=== PATIENT | female | born 1955 | race Caucasian/White ===

== ENCOUNTER 2017-10-07 16:20 | Inpatient (IN) | payer MEDICARE, MEDICAID ==
[~2017-10-07 16:20] MED LIST: Iopamidol 370 76% 100 ML VIAL ONE
[2017-10-07] MEDS ORDERED: Morphine 5 MG/ML SYRINGE ONE ×3 (17:11→19:01)
[2017-10-07] MEDS ORDERED: Piperacillin/Tazobactam 3.375 GM VIAL ONE (17:13)
[2017-10-07] MEDS ORDERED: Sodium Chloride 0.9% 100 ML ONE (17:13)
[2017-10-07] MEDS ORDERED: Ondansetron HCl/PF 4 MG/2 ML Vial ONE (17:19)
[2017-10-07 17:32] LABS: #Basophils 0.1 thou/uL (0.0-0.2); #Lymphocytes 1.3 thou/uL (1.20-3.40); #Monocytes 1.2 thou/uL (0.11-0.59); #Neutrophils 9.3 thou/uL (1.40-6.50); %Eosinophils 0.1 % (0.0-10.0); %Lymphocytes 10.6 % (21.0-51.0); %Monocytes 10.3 % (0.0-10.0); %Neutrophils 77.9 % (42.0-75.0); Hemoglobin 13.5 g/dL (12.0-16.0); Mean Corpuscular Hemoglobin 28.2 pg (27.0-31.0); Mean Corpuscular Volume 85.4 fL (78.0-98.0); Mean Platelet Volume 6.1 fL (7.4-10.4); Platelet Count 663 thou/uL (130-400); RBC Distribution Width 13.4 % (11.5-14.5); White Blood Cell (WBC) Count 11.9 thou/uL (4.8-10.8)
[2017-10-07 17:41] LABS: PTT 33.1 SEC (22.9-36.1); Prothrombin Time 13.7 SEC (12.0-14.7)
[2017-10-07 17:46] LABS: ALT (SGPT) 19 U/L (8-55); AST (SGOT) 29 U/L (5-34); Alkaline Phosphatase 99 U/L (40-150); Anion Gap 18 mmol/L (10-20); BUN (Urea Nitrogen) 10 mg/dL (9.8-20.1); Bilirubin, Total 0.7 mg/dL (0.2-1.2); CK (CPK) 74 U/L (29-168); Calc. Creatinine Clearance 0 mL/min (70-130); Calcium 9.5 mg/dL (7.8-10.44); Carbon Dioxide 27 mmol/L (22-29); Chloride 89 mmol/L (98-107); Estimated GFR-MDRD 76; Globulin 4.1 g/dL (2.4-3.5); Glucose 93 mg/dL (70-105); Lipase 23 U/L (8-78); Potassium 4.3 mmol/L (3.5-5.1); Protein, Total 7.1 g/dL (6.0-8.3); Sodium 130 mmol/L (136-145)
[2017-10-07 17:47] LABS: CKMB 0.3 ng/mL (0-6.6); Troponin I Less than 0.010 ng/mL (< 0.028)
[2017-10-07 18:53] LABS: HBCM Index 0.18 S/CO (0-0.79); HBSAg Index 0.87 S/CO (0-0.99); Hep A IgM AB Non-Reactive (NonReactive); Hep A IgM S/CO 0.09 S/CO (0-0.79); Hep B Surf Ag Non-Reactive S/CO (NonReactive); Hep C IgG Ab Non-Reactive (NonReactive); Hep C Index 0.08 S/CO (0-0.79); Hepatitis B Core IGM Abs Non-Reactive (NonReactive)
--- NOTE | 2017-10-07 19:00 | CT ---
CT ABDOMEN AND PELVIS: 10/07/2017 HISTORY: Weakness. Stomach pain. Dehydration. Distention. COMPARISON: None. TECHNIQUE: Serial axial CT imaging is obtained at 5 mm intervals, from the lung bases through the pubic symphysi s, with IV contrast. Coronal reformatted imaging obtained. FINDINGS: There is an incompletely imaged pleural-based soft tissue nodule on the right, medially, on image 2, measuring 8 mm. There is a nodule within the left lower lobe, measuring 6 mm, on image 14, and a rig ht lower lobe nodule is partially imaged on image 1, measuring 1.1 cm. No free intraperitoneal air is noted. There is a moderate amount of ascites seen throughout the abdomen/pelvis. There is a soft tissue mas s within the mediastinal fat, anterior to the heart, on image 5, measuring 3.5 x 1.4 cm. A small, in completely imaged pericardial effusion is noted. There is a soft tissue mass in the right pericardia c region on image 107, measuring 2.5 cm. There is extensive nodular, mass-like soft tissue thickenin g of the omentum, with extensive enhancement of the peritoneal lining. There is marked omental thick ening throughout the abdomen/pelvis. There are ill defined extensive soft tissue masses along the pe ritoneal lining throughout the abdomen/pelvis, with prominent mass-like thickening of the right upper and left upper quadrant. There is nodularity of the peritoneal lining with masses seen along the co urse of the right pericolic gutter. There is no discrete mass within the liver parenchyma. The gallbladder, spleen, pancreas, adrenal gl ands, and kidneys demonstrate no acute findings. There is no evidence for bowel obstruction. There is diverticulosis of the sigmoid colon with no evidence for diverticulitis. The appendix appears bharat ssly unremarkable. There is atherosclerotic calcification of the abdominal aorta and its branches. No retroperitoneal l ymphadenopathy is noted. Review of the osseous structures demonstrates lower lumbar spine facet hype rtrophic change and degenerative change of the bilateral sacroiliac joints, with no discrete lytic or blastic bone lesion. IMPRESSION: Markedly abnormal appearance of the peritoneal lining with mass-like soft tissue thickening throughou t the abdomen/pelvis, especially in the upper abdomen, with associated ascites. Findings are highly concerning for peritoneal carcinomatosis. There are pulmonary nodules, incompletely imaged, within t he lung bases, suspicious for metastatic disease. Follow-up complete CT examination of the chest adv ised. There are masses in the pericardial region, and there is a small pericardial effusion. The results were called to Dr. Casarez at 6:22 p.m. on 10/07/2017. CODE CR POS: JWAriana
[2017-10-07] MEDS ORDERED: Ondansetron ODT 4 MG TAB SL PRN (21:24)
[2017-10-07] MEDS ORDERED: HYDROcodone/Acetaminophen 5/325 mg Tablet PO PRN ×2 (21:24)
[2017-10-07] MEDS ORDERED: Acetaminophen 325 MG TAB PO PRN (21:24)
[2017-10-07 22:07] VITALS: BMI 26.2
[2017-10-08] MEDS: Ondansetron HCl/PF 4 MG/2 ML Vial IVP PRN ×2 (00:58→06:04)
[2017-10-08] MEDS ORDERED: Milk Of Magnesia 30 ML UDCUP PO PRN (08:16)
[2017-10-08] MEDS ORDERED: Eucerin (Mineral Oil/Petrolatum,White) 30 gm Jar TOP PRN (08:16)
[2017-10-08] MEDS ORDERED: Loratadine 10 MG TAB PO PRN (08:16)
[2017-10-08] MEDS ORDERED: Artificial Tears 18 DROP/0.9 ML EA EYE PRN (08:16)
[2017-10-08] MEDS ORDERED: Bisacodyl 10 MG SUPP PR PRN (08:16)
[2017-10-08] MEDS ORDERED: Diabetic Tussin 200 MG/10 ML UDCUP PO PRN (08:16)
[2017-10-08] MEDS ORDERED: Chloraseptic Spray 180 ml Bottle PO PRN (08:16)
[2017-10-08] MEDS ORDERED: Sodium Chloride 0.65% Nasal 44 ML BOT EA NARE PRN (08:16)
[2017-10-08] MEDS ORDERED: Ondansetron HCl/PF 4 MG/2 ML Vial IVP PRN (08:16)
[2017-10-08] MEDS ORDERED: Loperamide HCl 2 MG CAP PO PRN (08:16)
[2017-10-08] MEDS ORDERED: Senokot 8.6 MG TAB PO PRN (08:16)
[2017-10-08] MEDS ORDERED: hydrALAZINE 20 MG/ML VIAL SLOW IVP PRN (08:16)
[2017-10-08] MEDS ORDERED: Promethazine HCl 25 MG/ML VIAL IM/IV PRN (08:18)
[2017-10-08] MEDS ORDERED: Enoxaparin Sodium 40 MG/0.4 ML SYRINGE SC SCH (09:00)
[2017-10-08] MEDS: Ondansetron ODT 4 MG TAB PO PRN (09:06)
[2017-10-08] MEDS ORDERED: Lidocaine 1% PF 5 ML VIAL ONE (09:42)
[2017-10-08] MEDS: Carvedilol 6.25 MG TAB PO SCH ×2 (10:29→20:31)
[2017-10-08] MEDS: Folic Acid 1 MG TAB PO SCH (10:30)
[2017-10-08] MEDS: Lisinopril 10 MG TAB PO SCH (10:30)
[2017-10-08 10:35] LABS: Fluid, Protein 3.3 g/dL (Not Available)
[2017-10-08 11:28] LABS: BF Color Yellow; Body Fluid Source PERITONEAL FLUID; Clarity Hazy (Clear); RBC Background Count 0.004; Tube # EDTA
[2017-10-08 11:39] LABS: WBC/NonHematic-Auto 1120 /cumm
[2017-10-08 11:45] LABS: BF RBC Count - Manual 3425 /cumm
--- NOTE | 2017-10-08 12:25 | HP ---
PRIMARY CARE PHYSICIAN: City call admission. REASON FOR ADMISSION: Abdominal pain. HISTORY OF PRESENT ILLNESS: A 62-year-old female who presented to [facility] Emergency Room with complaint of abdominal pain. Patient's abdominal pain was diffuse. She was having nausea and vomiting. She was not able to tolerate p.o. well. She denies any weight loss. She denies any fever or chills. She denies any UTI symptoms. With these symptoms, she presented to emergency room and patient was diagnosed with peritoneal carcinomatosis. The patient was given diagnosis of cancer. After that, patient got upset and she was in the denial mood. This morning when I tried to take a history from her, she was not able to tell me anything and she was crying and she was emotionally disturbed. Patient denies any constipation. She denies any melena. She denies any diarrhea. She is a smoker , but she quit smoking 3 months ago. She does have cough intermittently. The patient reports that for last 5 years, she is suffering from lot of things and she does not want to share with me. Unfortunately, when I was trying to get detailed history from her, at that time, patient was emotionally disturbed from prior information from the emergency room and she was not able to provide any more history. PAST MEDICAL HISTORY: Hypertension. PAST SURGICAL HISTORY: Hysterectomy and tonsillectomy. PAST PSYCHIATRIC HISTORY: Anxiety and depression. SOCIAL HISTORY: Patient is a former drug abuser, but patient lately clean and she denies any ongoing drug abuse history. The patient denies any alcohol abuse , but she is a smoker and quit smoking 3 months ago. FAMILY HISTORY: No strong family history of premature coronary artery disease, stroke or cancer. ALLERGIES: No known drug allergy. CURRENT HOME MEDICATIONS: Coreg 12.5 mg twice daily, lisinopril 10 mg p.o. daily, Protonix 20 mg p.o. daily and folic acid 1 mg p.o. daily. EMERGENCY ROOM COURSE: The patient is given morphine 4 mg, Zosyn 3.375 gram, Zofran 8 mg. REVIEW OF SYSTEMS: The following complete review of systems was negative, unless otherwise mentioned in the HPI or below: Constitutional: Weight loss or gain, ability to conduct usual activities. Skin: Rash, itching. Eyes: Double vision, pain. ENT/Mouth: Nose bleeding, neck stiffness, pain, tenderness. Cardiovascular: Palpitations, dyspnea on exertion, orthopnea. Respiratory: Shortness of breath, wheezing, cough, hemoptysis, fever or night sweats. Gastrointestinal: Poor appetite, abdominal pain, heartburn, nausea, vomiting, constipation, or diarrhea. Genitourinary: Urgency, frequency, dysuria, nocturia. Musculoskeletal: Pain, swelling. Neurologic/Psychiatric: Anxiety, depression. Allergy/Immunologic: Skin rash, bleeding tendency. Please see my HPI for pertinent positive and negative. All other review of system reviewed and negative except as mentioned in the HPI. PHYSICAL EXAMINATION: VITAL SIGNS: On arrival, blood pressure 124/105, pulse 112, respiratory rate 20 , temperature 97.8, saturation 95% on room air, weight 64.4 kilograms. GENERAL: Patient is currently alert, awake, no obvious acute distress. HEAD: Normocephalic, atraumatic. EYES: Pupils round, reactive to light. Extraocular muscle intact. ENT: Oropharynx within normal limits. Moist mucous membranes. No oral lesion , no pharyngeal erythema, no exudate. NECK: Supple, no JVD, no thyromegaly, no carotid bruit, no jugular venous distention. LUNGS: Clear to auscultation without any rhonchi or rales. CARDIAC: S1, S2 regular, tachycardia, no murmur, no gallop, no rub. ABDOMEN: Diffuse tenderness noted, periumbilical hernia noted. No peritoneal sign, no guarding, no rigidity, no rebound. BACK: Examination unremarkable, no CVA tenderness. EXTREMITIES: Upper extremity passive movement of all joints are normal. Lower extremities; no edema. Good peripheral pulsation. SKIN: No skin rash. HEMATOLOGICAL SYSTEM: No lymphadenopathy. PSYCHIATRIC: Anxious affect. NEUROLOGIC: Nonfocal examination. IMAGING DATA AND SIGNIFICANT LABORATORY DATA: EKG showing sinus tachycardia, nonspecific ST-T changes. CT of the abdomen and pelvis done in the emergency room which showed pleural based soft tissue nodule in right as well as in left side, moderate amount of ascites, soft tissue mass within the mediastinal fat anterior to the heart, pericardial effusion, peritoneal carcinomatosis, atherosclerosis of the aorta, degenerative changes in the sacroiliac joint and lumbar spine. CBC: WBC 11.9, hemoglobin 13.5, platelets 663, INR 1.0. BMP: Sodium 130, potassium 4.3, chloride 89, carbon dioxide 27, anion gap 18, BUN 10 , creatinine 0.77, glucose 93, calcium 9.5. Lactic acid 1.2. LFT: AST 29, ALT 19, alkaline phosphatase is 99, albumin 3.0, lipase 23. CA-125 540, BNP 103. Cardiac enzymes negative. CK 74. Ammonia 18. Hepatitis profile negative. ASSESSMENT AND PLAN/IMPRESSION: 1. Abdominal pain likely due to peritoneal carcinomatosis. 2. Ascites, likely malignant. 3. Multiple pulmonary nodules. 4. Soft tissue mass within mediastinal fat/anterior to the heart. 5. Pericardial effusion. 6. Hyponatremia. 7. Hypochloremia. 8. History of hypertension. 9. Nausea, vomiting, and dehydration. 10. Deep venous thrombosis prophylaxis, Lovenox 40 mg subcu daily. 11. Gastrointestinal prophylaxis, Protonix 40 mg IV daily. 12. Code status: The patient is FULL CODE. At this point, the patient does not have any surrogate decision maker. PLAN: Full admission to medical floor. Oncology will be consulted. Diagnostic paracentesis will be done and we will send fluid chemistry, culture and cytology. We will continue IV fluid with NS at 100 mL per hour. We will resume her home medication including Coreg, lisinopril. We will give her Protonix 40 mg IV daily, Zofran and Phenergan on a p.r.n. basis for nausea and vomiting. Her pain will be controlled with morphine. We will use Ativan on p.r.n. basis for her anxiety. We will monitor clinical response. We will also obtain echocardiography to assess pericardial effusion. Patient will need CT chest with contrast for further evaluation because contrast given earlier today that is why we will try to do it tomorrow morning for her in detail. Disposition plan based on clinical course. We are expecting patient's stay in hospital more than 2 midnights. Plan of care discussed with the patient in detail. MTDD
[2017-10-08] MEDS: Pantoprazole 40 MG VIAL IVP SCH (12:28)
[2017-10-08] MEDS: Sodium Chloride 0.9% 1,000 ML IV SCH ×2 (12:28→20:32)
[2017-10-08 12:31] LABS: BF Segmented Neutrophils 8 %; Cell Count Non Hematic 25 %; Lymphocytes 66 %
--- NOTE | 2017-10-08 12:33 | ULT ---
ULTRASOUND GUIDED PARACENTESIS: Date: 10/08/17 HISTORY: CT examination dated 10/07/17 demonstrated findings concerning for peritoneal carcinomatosis. Diagnos tic paracentesis was required. FINDINGS: Informed consent was obtained prior to the procedure. The left abdomen was prepped and draped in the normal sterile fashion and anesthetized with 1% buffer ed lidocaine. Preprocedural imaging demonstrated ascites throughout the abdomen/pelvis of relatively small to moder ate volume. In addition, there is lobulated soft tissue echogenicity lining the peritoneal cavity in multiple locations, most prominent in the left lower quadrant, again concerning for peritoneal carcin omatosis. Skin overlying the left lower quadrant was prepped and draped in the normal sterile fashion and anest hetized with 1% buffered lidocaine. With direct sonographic guidance, a 5 [employer] catheter was advanced into the ascites and removal of the stylette yields cloudy, kory-colored fluid, with particulate matter within the fluid. 2 liter s were removed. The ascites was sent to the laboratory for assessment per the request of the ordering physician. The patient tolerated the procedure well. IMPRESSION: Successful ultrasound guided paracentesis, yielding 2 liters of kory-colored fluid with internal par ticulate matter. POS: ALTON
[2017-10-08] MEDS ORDERED: ISOVUE-370 76%-LOCM 1 ML ONE (13:11)
--- NOTE | 2017-10-08 17:43 | CT ---
CT THORAX WITH CONTRAST: DATE: 10/08/17 TIME: 4:49 p.m. HISTORY: 62-year-old female with pulmonary nodules. Demonstration of peritoneal carcinomatosis on CT abdomen a nd pelvis of 10/07/17. Dr. Riojas reported the bilateral pulmonary thromboembolism by telephone to nurse Bran Rutherford at 5: 13 p.m. on 10/08/17. He was instructed to notify nurse practitioner Rayne Shea as soon as possible. COMPARISON: No prior chest CTs or plain chest radiographs. TECHNIQUE: IV iodinated contrast media: 100 mL Isovue 370. FINDINGS: In the superior segment of the right lower lobe, there is a cluster of multiple noncalcified pulmonar y masses and nodules with irregular margins, but without spiculations. In aggregate, this tight clust er measures approximately 3.5 x 3.5 x 2.5 cm (measurements are necessarily imprecise because of the v matthew irregular shapes). Of this cluster, one of the larger subunits localized inferiorly and laterally measures approximately 2.5 x 1.5 x 1.5 cm. There are multiple smaller satellite pulmonary nodules around this cluster, especially posterior to i t. The right upper lobe and right middle lobe, are clear. The basilar segments of the right lower lobe a re also clear. There is a 0.6 x 0.6 x 0.6 cm noncalcified round pulmonary nodule at the posterior basilar segment of the left lower lobe. The rest of the left lower lobe, lingula, and the rest of the left upper lobe, are clear. There are thrombi in first order and more peripheral branches of the left lower lobe pulmonary artery . There is also thrombus in third or fourth order right lower lobe pulmonary artery branches. No mediastinal or hilar lymphadenopathy. No cardiomegaly or pneumothorax. No thoracic aortic aneurysm or dissection. No axillary lymphadenopathy. Again noted is the peritoneal carcinomatosis. IMPRESSION: 1. Bilateral pulmonary thromboembolism. 2. Unusual pattern of a cluster of moderate sized, irregularly shaped pulmonary masses and nodul es isolated to the superior segment of the right upper lobe. Although the findings are suspicious for malignancy (given the intraperitoneal findings), such an isolated clustered pattern is unusual for p ulmonary metastatic disease. 3. Solitary, round, smooth, subcentimeter nodule at basilar left lower lobe: nonspecific. Code CR MIA R POS: ROYER
[2017-10-08 18:55] LABS: Hemoglobin 13.1 g/dL (12.0-16.0); Platelet Count 595 thou/uL (130-400)
[2017-10-08] MEDS: Lorazepam 1 MG TAB PO PRN (20:30)
[2017-10-08] MEDS: Promethazine HCl 12.5 MG in Sodium Chloride 0.9% 50 ML IVPB PRN (20:32)
--- NOTE | 2017-10-08 22:41 | CON ---
DATE OF CONSULTATION: 10/08/2017 REASON FOR CONSULTATION: Peritoneal carcinomatosis. HISTORY OF PRESENT ILLNESS: Ms. Paul is a pleasant 62-year-old female who presented to the emergency room with complaints of abdominal pain and bloating. She was seen by her primary care yesterday. Dr. Kidd and recommended that she be sent go to the emergency room for her abdominal distention. She had an abdominal and pelvis CT performed, which showed the peritoneal lining with mass-like soft tissue thickening throughout the abdomen and pelvis. She had ascites. There were some partially viewed pulmonary nodules. Patient was admitted for abdominal pain. She did have a paracentesis this morning with removal of 2 liters of cloudy kory-colored fluid. This has been sent for cytology. Patient states she has been in her usual state of health until approximately one month ago when she began to have early satiety and actual weight and abdominal distention with weight gain. She has a 50-pack- year smoking. She denies any increasing cough or hemoptysis. Denies any chest pain. She does admit to increasing shortness of breath. No vaginal bleeding or blood in her stool. PAST MEDICAL HISTORY: Hypertension, anxiety, and depression. PAST SURGICAL HISTORY: 1. Hysterectomy. 2. Tonsillectomy. ALLERGIES: No known drug allergies. HOME MEDICATIONS: 1. Coreg 12.5 mg b.i.d. 2. Lisinopril 10 mg daily. 3. Protonix daily. 4. Folic acid daily. FAMILY HISTORY: Her mother from primary liver cancer. SOCIAL HISTORY: She is single, lives alone in [id number] smoking. No alcohol or illicit drug use. REVIEW OF SYSTEMS: Positive for abdominal distention and shortness of breath. Otherwise, 12-point review is negative. PHYSICAL EXAMINATION: VITAL SIGNS: Temperature is 96.1, pulse is 79, respiratory rate 18, BP is 115/ 75. She is 98% on room air. GENERAL: This is a well-developed, well-nourished female who looks older than her stated age. HEENT: Normocephalic, atraumatic. Pupils equal and reactive to light. She has poor dentition. NECK: Supple. CARDIOVASCULAR: Irregular rate and rhythm. LUNGS: Clear. ABDOMEN: Mildly distended. There are palpable soft tissue nodules scattered throughout her abdomen. EXTREMITIES: There is no clubbing, cyanosis, or edema. SKIN: No rash. HEMATOLOGIC: No petechia or purpura. NEUROLOGIC: Nonfocal. PSYCHIATRIC: Patient is alert and oriented and appropriate. PERTINENT LABORATORY DATA AND X-RAYS: Current WBCs are 11.9, hemoglobin 13.5, hematocrit 41.0, platelet count 663,000. She has got 78% neutrophils, 10% lymphocytes. PT is 13.7, INR is 1.0, PTT is 33.1. Sodium is 130, potassium is 4.3, chloride is 89, CO2 is 27, BUN is 10, creatinine 0.77. Lactic acid is 1.2 , calcium 9.5, total bilirubin 0.7. AST is 29, ALT is 19, alkaline phosphatase is 99. Ammonia is 18. Troponin is negative. BNP is 103.1. Serum total protein is 7.1, albumin 3.0, globulin 4.1, lipase is 23. CA-125 is 540. ASSESSMENT: 1. Peritoneal carcinomatosis. 2. Ascites, status post paracentesis. 3. Pulmonary nodules. DISCUSSION: Patient needs a CT of her chest to rule out any primary lung malignancy. CA-125 is slightly elevated. Check a CEA. We will wait Cytology on the ascitic fluid for diagnosis, hopefully that can be obtained from this fluid. Otherwise, we will need a tissue biopsy. Further recommendations based on these results. Thank you for the consult. ROBBY
[2017-10-09 05:30] LABS: ALT (SGPT) 12 U/L (8-55); AST (SGOT) 13 U/L (5-34); Albumin 2.5 g/dL (3.5-5.0); Alkaline Phosphatase 64 U/L (40-150); Anion Gap 11 mmol/L (10-20); BUN (Urea Nitrogen) 9 mg/dL (9.8-20.1); Bilirubin, Total 0.4 mg/dL (0.2-1.2); Calc. Creatinine Clearance 79 mL/min (70-130); Calcium 8.2 mg/dL (7.8-10.44); Carbon Dioxide 26 mmol/L (22-29); Chloride 93 mmol/L (98-107); Estimated GFR-MDRD 75; Glucose 103 mg/dL (70-105); Protein, Total 5.5 g/dL (6.0-8.3); Sodium 126 mmol/L (136-145)
[2017-10-09] MEDS: Lorazepam 1 MG TAB PO PRN ×2 (05:56→21:15)
[2017-10-09 06:06] LABS: Band 4 % (5-11); Hemoglobin 11.9 g/dL (12.0-16.0); Lymphocytes 4 % (21-51); MDiff Complete? YES; Mean Corpuscular HGB CONC 32.1 g/dL (32.0-36.0); Mean Corpuscular Hemoglobin 29.9 pg (27.0-31.0); Mean Corpuscular Volume 93.1 fL (78.0-98.0); Mean Platelet Volume 6.7 fL (7.4-10.4); Metamyelocyte 1 % (0-0); Monocytes 20 % (0-10); Neutrophil 71 % (42-75); PLT Morphology Comment Appears Increased; Platelet Count 514 thou/uL (130-400); RBC Distribution Width 14.1 % (11.5-14.5); Red Blood Cell (RBC) Count 3.97 mill/uL (4.20-5.40); White Blood Cell (WBC) Count 10.7 thou/uL (4.8-10.8)
[2017-10-09] MEDS: Promethazine HCl 12.5 MG in Sodium Chloride 0.9% 50 ML IVPB PRN ×2 (06:24→21:15)
[2017-10-09] MEDS ORDERED: Enoxaparin Sodium 80 MG/0.8 ML SYRINGE SC SCH (09:00)
[2017-10-09] MEDS: Folic Acid 1 MG TAB PO SCH (10:33)
[2017-10-09] MEDS: Enoxaparin Sodium 60 MG/0.6 ML SYRINGE SC SCH ×2 (10:33→21:14)
[2017-10-09] MEDS: Carvedilol 6.25 MG TAB PO SCH ×2 (10:33→21:13)
[2017-10-09] MEDS: Pantoprazole 40 MG VIAL IVP SCH (10:34)
[2017-10-09] MEDS: Lisinopril 10 MG TAB PO SCH (10:34)
[2017-10-09] MEDS: Sodium Chloride 0.9% 1,000 ML IV SCH ×2 (10:35→18:49)
--- NOTE | 2017-10-09 10:41 | PDOC.PN ---
- Subjective Encounter Start Date: 10/09/17 Encounter Start Time: 15:30 -: old records requested/rev Patient seen and examined for peritoneal carcinomatosis. No new complaints. No overnight events - Objective Resuscitation Status: Resuscitation Status FULL:Full Resuscitation MAR Reviewed: Yes Vital Signs & Weight: Vital Signs (12 hours) Temp Pulse Resp BP BP Pulse Ox 10/09/17 10:34 101/68 10/09/17 10:33 101/68 10/09/17 07:22 97.7 F 89 18 /68 96 Weight Admit Weight 143 lb 3.2 oz Weight 143 lb 3.2 oz I&O: 10/08/17 10/09/17 10/10/17 06:59 06:59 06:59 Intake Total 70 993 Balance 70 993 Result Diagrams: 10/09/17 05:02 10/09/17 05:02 Additional Labs: Accuchecks 10/08/17 11:12 POC Glucose 97 Radiology Reviewed by me: Yes (CT chest, US leg) Phys Exam - Physical Examination Constitutional: NAD HEENT: PERRLA, moist MMs, sclera anicteric Neck: no JVD, supple Respiratory: no wheezing, no rales, no rhonchi Cardiovascular: RRR, no significant murmur, no rub Gastrointestinal: soft, no distention, positive bowel sounds ascites+ Musculoskeletal: no edema, pulses present Neurological: non-focal, normal sensation, moves all 4 limbs Lymphatic: no nodes Psychiatric: normal affect, A&O x 3 Skin: no rash, normal turgor Dx/Plan (1) Abdominal pain Code(s): R10.9 - UNSPECIFIED ABDOMINAL PAIN Status: Acute Qualifiers: Abdominal location: generalized Qualified Code(s): R10.84 - Generalized abdominal pain (2) Ascites, malignant Code(s): R18.0 - MALIGNANT ASCITES Status: Acute (3) Bilateral pulmonary embolism Code(s): I26.99 - OTHER PULMONARY EMBOLISM WITHOUT ACUTE COR PULMONALE Status : Acute (4) Dehydration Code(s): E86.0 - DEHYDRATION Status: Acute (5) Nausea & vomiting Code(s): R11.2 - NAUSEA WITH VOMITING, UNSPECIFIED Status: Acute (6) Peritoneal carcinomatosis Code(s): C78.6 - SECONDARY MALIGNANT NEOPLASM OF RETROPERITON AND PERITONEUM; C80.1 - MALIGNANT (PRIMARY) NEOPLASM, UNSPECIFIED Status: Acute (7) Pulmonary nodules/lesions, multiple Status: Acute (8) GERD (gastroesophageal reflux disease) Code(s): K21.9 - GASTRO-ESOPHAGEAL REFLUX DISEASE WITHOUT ESOPHAGITIS Status: Chronic (9) Hypertension Code(s): I10 - ESSENTIAL (PRIMARY) HYPERTENSION Status: Chronic - Plan cont current plan of care * today will start lovenox 1 mg /kg q 12 hourly * monitor H & H, platelet, and creatinine * check FOBT * get US leg to rule out DVT * echo pending * follow up on cytology report * oncology following * medication reviewed as below * symptomatic treatment. * advance diet as tolerated Review of Systems - Review of Systems Constitutional: negative: fever, chills, sweats, weakness, malaise, other ENT: negative: Ear Pain, Ear Discharge, Nose Pain, Nose Discharge, Nose Congestion, Mouth Pain, Mouth Swelling, Throat Pain, Throat Swelling, Other Respiratory: negative: Cough, Dry, Shortness of Breath, Hemoptysis, SOB with Excertion, Pleuritic Pain, Sputum, Wheezing Cardiovascular: negative: chest pain, palpitations, orthopnea, paroxysmal nocturnal dyspnea, edema, light headedness, other Gastrointestinal: Abdominal Pain. negative: Nausea, Vomiting, Diarrhea, Constipation, Melena, Hematochezia, Other Genitourinary: negative: Dysuria, Frequency, Incontinence, Hematuria, Retention , Other Musculoskeletal: negative: Neck Pain, Shoulder Pain, Arm Pain, Back Pain, Hand Pain, Leg Pain, Foot Pain, Other Skin: negative: Rash, Lesions, Kelvin, Bruising, Other - Medications/Allergies Allergies/Adverse Reactions: Allergies Allergy/AdvReac Type Severity Reaction Status Date / Time No Known Drug Allergies Allergy Verified 10/07/17 21:57 Medications: Current Medications Acetaminophen (Tylenol) 650 mg PO Q4H PRN PRN Reason: Headache/Fever or Pain Hydrocodone Bitart/Acetaminophen (Bailey 5/325) 1 tab PO Q4H PRN PRN Reason: Moderate Pain (4-6) Al Hydroxide/Mg Hydroxide (Maalox) 30 ml PO Q6H PRN PRN Reason: Heartburn or Indigestion Artificial Tears (Tears Naturale) 0 drop EA EYE PRN PRN PRN Reason: Dry Eyes Bisacodyl (Dulcolax) 10 mg GA Q24H PRN PRN Reason: Constipation Carvedilol (Coreg) 12.5 mg PO BID REPLACED BY [facility] Last Admin: 10/09/17 10:33 Dose: 12.5 mg Enoxaparin Sodium (Lovenox) 60 mg SC 0900,2100 REPLACED BY [facility] Last Admin: 10/09/17 10:33 Dose: 60 mg Folic Acid (Folvite) 1 mg PO DAILY REPLACED BY [facility] Last Admin: 10/09/17 10:33 Dose: 1 mg Guaifenesin (Robitussin Sf) 200 mg PO Q4H PRN PRN Reason: Cough Hydralazine HCl (Apresoline) 10 mg SLOW IVP Q4H PRN PRN Reason: Systolic BP > 180 Promethazine HCl 12.5 mg/ (Sodium Chloride) 50.5 mls @ 202 mls/hr IVPB Q6H PRN PRN Reason: Nausea Last Admin: 10/09/17 06:24 Dose: 50.5 mls Sodium Chloride (Normal Saline 0.9%) 1,000 mls @ 100 mls/hr IV .Q10H REPLACED BY [facility] Last Admin: 10/09/17 10:35 Dose: Not Given Lisinopril (Zestril) 10 mg PO DAILY REPLACED BY [facility] Last Admin: 10/09/17 10:34 Dose: 10 mg Loperamide HCl (Imodium) 2 mg PO PRN PRN PRN Reason: Diarrhea/Loose Stools Loratadine (Claritin) 10 mg PO DAILYPRN PRN PRN Reason: Sinus Symptoms Lorazepam (Ativan) 1 mg PO Q4H PRN PRN Reason: Anxiety/Agitation Last Admin: 10/09/17 05:56 Dose: 1 mg Magnesium Hydroxide (Milk Of Magnesium) 30 ml PO DAILYPRN PRN PRN Reason: Constipation Mineral Oil/White Petrolatum (Eucerin Cream) 0 gm TOP BIDPRN PRN PRN Reason: Dry Skin Morphine Sulfate (Morphine) 2 mg SLOW IVP Q4H PRN PRN Reason: Pain Last Admin: 10/09/17 05:57 Dose: 2 mg Ondansetron HCl (Zofran Odt) 4 mg PO Q6H PRN PRN Reason: Nausea/Vomiting Last Admin: 10/08/17 09:06 Dose: 4 mg Ondansetron HCl (Zofran) 4 mg IVP Q6H PRN PRN Reason: Nausea/Vomiting Pantoprazole Sodium (Protonix) 40 mg IVP DAILY REPLACED BY [facility] Last Admin: 10/09/17 10:34 Dose: 40 mg Phenol (Chloraseptic [place] 180 Ml Bot) 0 ml PO PRN PRN PRN Reason: Sore Throat Promethazine HCl (Phenergan) 12.5 mg IM/IV Q6H PRN PRN Reason: Nausea/Vomiting Senna (Senokot) 2 tab PO HSPRN PRN PRN Reason: Constipation Sodium Chloride ([place] Nasal [place] 0.65%) 0 ml EA NARE QIDPRN PRN PRN Reason: Nasal Congestion Sodium Chloride (Flush - Normal Saline) 10 ml IVF Q12HR REPLACED BY [facility] Last Admin: 10/09/17 10:34 Dose: Not Given Sodium Chloride (Flush - Normal Saline) 10 ml IVF PRN PRN PRN Reason: Saline Flush Zolpidem Tartrate (Ambien) 5 mg PO HSPRN PRN PRN Reason: Insomnia
--- NOTE | 2017-10-09 11:33 | ULT ---
BILATERAL LOWER EXTREMITY VENOUS ULTRASOUND WITH DOPPLER: HISTORY: Bilateral pulmonary artery emboli. COMPARISON: None. TECHNIQUE: Cabrera-scale, color-flow, and Doppler imaging with spectral wave-form analysis was performed of the lef t and right lower extremity venous system. FINDINGS: Bilaterally, there is compressibility , presence of flow, and augmentation in the common femoral vein , femoral vein, and popliteal vein. There is flow in the greater saphenous veins, profunda veins, an d posterior tibial veins. IMPRESSION: No evidence of thrombus in the left or right lower extremity deep venous system. POS: PPP
[2017-10-09] MEDS: Acetaminophen 325 MG TAB PO PRN (21:15)
[2017-10-10] MEDS: Acetaminophen 325 MG TAB PO PRN (00:44)
[2017-10-10] MEDS: Sodium Chloride 0.9% 1,000 ML IV SCH (03:38)
[2017-10-10 04:51] LABS: Hemoglobin 11.3 g/dL (12.0-16.0); Platelet Count 424 thou/uL (130-400)
[2017-10-10 04:59] LABS: INR-International Normal Ratio 1.2; Prothrombin Time 15.3 SEC (12.0-14.7)
[2017-10-10 05:07] LABS: D-Dimer Test 8.98 *mcg/mL (0.27-0.43)
[2017-10-10] MEDS: Enoxaparin Sodium 60 MG/0.6 ML SYRINGE SC SCH ×2 (07:45→20:06)
[2017-10-10] MEDS: HYDROcodone/Acetaminophen 5/325 mg Tablet PO PRN ×3 (07:46→20:06)
[2017-10-10] MEDS: Folic Acid 1 MG TAB PO SCH (07:48)
[2017-10-10] MEDS: Carvedilol 6.25 MG TAB PO SCH ×2 (07:48→20:08)
[2017-10-10] MEDS: Lisinopril 10 MG TAB PO SCH (07:48)
--- NOTE | 2017-10-10 10:22 | PDOC.PN ---
- Subjective Encounter Start Date: 10/10/17 Encounter Start Time: 08:10 Patient seen and examined. No new complaints. No overnight events - Objective Resuscitation Status: Resuscitation Status FULL:Full Resuscitation MAR Reviewed: Yes Vital Signs & Weight: Vital Signs (12 hours) Temp Pulse Resp BP BP Pulse Ox 10/10/17 08:00 97.5 F L 83 16 95 10/10/17 07:48 96/66 10/10/17 07:35 97.5 F L 83 16 / 96 Weight Admit Weight 143 lb 3.2 oz Weight 143 lb 3.2 oz I&O: 10/09/17 10/10/17 10/11/17 06:59 06:59 06:59 Intake Total 993 1387 Balance 993 1387 Result Diagrams: 10/10/17 04:03 10/10/17 04:03 Phys Exam - Physical Examination Constitutional: NAD HEENT: PERRLA, moist MMs, sclera anicteric Neck: no JVD, supple Respiratory: no wheezing, no rales, no rhonchi Cardiovascular: RRR, no significant murmur, no rub Gastrointestinal: soft, no distention, positive bowel sounds diffuse sore Musculoskeletal: no edema, pulses present Neurological: non-focal, normal sensation, moves all 4 limbs Psychiatric: normal affect, A&O x 3 Skin: no rash, normal turgor Dx/Plan (1) Abdominal pain Code(s): R10.9 - UNSPECIFIED ABDOMINAL PAIN Status: Acute Qualifiers: Abdominal location: generalized Qualified Code(s): R10.84 - Generalized abdominal pain (2) Ascites, malignant Code(s): R18.0 - MALIGNANT ASCITES Status: Acute (3) Bilateral pulmonary embolism Code(s): I26.99 - OTHER PULMONARY EMBOLISM WITHOUT ACUTE COR PULMONALE Status : Acute (4) Dehydration Code(s): E86.0 - DEHYDRATION Status: Acute (5) Nausea & vomiting Code(s): R11.2 - NAUSEA WITH VOMITING, UNSPECIFIED Status: Acute (6) Peritoneal carcinomatosis Code(s): C78.6 - SECONDARY MALIGNANT NEOPLASM OF RETROPERITON AND PERITONEUM; C80.1 - MALIGNANT (PRIMARY) NEOPLASM, UNSPECIFIED Status: Acute (7) Pulmonary nodules/lesions, multiple Status: Acute (8) GERD (gastroesophageal reflux disease) Code(s): K21.9 - GASTRO-ESOPHAGEAL REFLUX DISEASE WITHOUT ESOPHAGITIS Status: Chronic (9) Hypertension Code(s): I10 - ESSENTIAL (PRIMARY) HYPERTENSION Status: Chronic - Plan cont current plan of care * OK to transfer to oncology * await cytology report * diagnosis is pending * continue lovenox * elliquis or xarelto on discharge if pt can afford * medication reviewed as below * symptomatic treatment. * DC IVF Review of Systems - Review of Systems Eyes: negative: Pain, Vision Change, Conjunctivae Inflammation, Eyelid Inflammation, Redness, Other ENT: negative: Ear Pain, Ear Discharge, Nose Pain, Nose Discharge, Nose Congestion, Mouth Pain, Mouth Swelling, Throat Pain, Throat Swelling, Other Respiratory: negative: Cough, Dry, Shortness of Breath, Hemoptysis, SOB with Excertion, Pleuritic Pain, Sputum, Wheezing Cardiovascular: negative: chest pain, palpitations, orthopnea, paroxysmal nocturnal dyspnea, edema, light headedness, other Gastrointestinal: negative: Nausea, Vomiting, Abdominal Pain, Diarrhea, Constipation, Melena, Hematochezia, Other Genitourinary: negative: Dysuria, Frequency, Incontinence, Hematuria, Retention , Other Musculoskeletal: negative: Neck Pain, Shoulder Pain, Arm Pain, Back Pain, Hand Pain, Leg Pain, Foot Pain, Other - Medications/Allergies Allergies/Adverse Reactions: Allergies Allergy/AdvReac Type Severity Reaction Status Date / Time No Known Drug Allergies Allergy Verified 10/07/17 21:57 Medications: Current Medications Acetaminophen (Tylenol) 650 mg PO Q4H PRN PRN Reason: Headache/Fever or Pain Last Admin: 10/10/17 00:44 Dose: 650 mg Hydrocodone Bitart/Acetaminophen ([place] 5/325) 1 tab PO Q4H PRN PRN Reason: Moderate Pain (4-6) Last Admin: 10/10/17 07:46 Dose: 1 tab Al Hydroxide/Mg Hydroxide (Maalox) 30 ml PO Q6H PRN PRN Reason: Heartburn or Indigestion Artificial Tears (Tears Naturale) 0 drop EA EYE PRN PRN PRN Reason: Dry Eyes Bisacodyl (Dulcolax) 10 mg DE Q24H PRN PRN Reason: Constipation Carvedilol (Coreg) 12.5 mg PO BID [facility] Last Admin: 10/10/17 07:48 Dose: Not Given Diazepam (Valium) 5 mg PO Q24H PRN PRN Reason: Anxiety Enoxaparin Sodium (Lovenox) 60 mg SC 0900,2100 [facility] Last Admin: 10/10/17 07:45 Dose: 60 mg Folic Acid (Folvite) 1 mg PO DAILY [facility] Last Admin: 10/10/17 07:48 Dose: 1 mg Guaifenesin (Robitussin Sf) 200 mg PO Q4H PRN PRN Reason: Cough Hydralazine HCl (Apresoline) 10 mg SLOW IVP Q4H PRN PRN Reason: Systolic BP > 180 Promethazine HCl 12.5 mg/ (Sodium Chloride) 50.5 mls @ 202 mls/hr IVPB Q6H PRN PRN Reason: Nausea Last Admin: 10/09/17 21:15 Dose: 50.5 mls Sodium Chloride (Normal Saline 0.9%) 1,000 mls @ 100 mls/hr IV .Q10H [facility] Last Admin: 10/10/17 03:38 Dose: Not Given Lisinopril (Zestril) 10 mg PO DAILY [facility] Last Admin: 10/10/17 07:48 Dose: Not Given Loperamide HCl (Imodium) 2 mg PO PRN PRN PRN Reason: Diarrhea/Loose Stools Loratadine (Claritin) 10 mg PO DAILYPRN PRN PRN Reason: Sinus Symptoms Lorazepam (Ativan) 1 mg PO Q4H PRN PRN Reason: Anxiety/Agitation Last Admin: 10/09/17 21:15 Dose: 1 mg Magnesium Hydroxide (Milk Of Magnesium) 30 ml PO DAILYPRN PRN PRN Reason: Constipation Mineral Oil/White Petrolatum (Eucerin Cream) 0 gm TOP BIDPRN PRN PRN Reason: Dry Skin Morphine Sulfate (Morphine) 2 mg SLOW IVP Q4H PRN PRN Reason: Pain Last Admin: 10/09/17 18:48 Dose: 2 mg Ondansetron HCl (Zofran Odt) 4 mg PO Q6H PRN PRN Reason: Nausea/Vomiting Last Admin: 10/08/17 09:06 Dose: 4 mg Ondansetron HCl (Zofran) 4 mg IVP Q6H PRN PRN Reason: Nausea/Vomiting Pantoprazole Sodium (Protonix) 40 mg IVP DAILY [facility] Last Admin: 10/09/17 10:34 Dose: 40 mg Phenol (Chloraseptic [place] 180 Ml Bot) 0 ml PO PRN PRN PRN Reason: Sore Throat Promethazine HCl (Phenergan) 12.5 mg IM/IV Q6H PRN PRN Reason: Nausea/Vomiting Last Admin: 10/10/17 07:57 Dose: 12.5 mg Senna (Senokot) 2 tab PO HSPRN PRN PRN Reason: Constipation Sodium Chloride ([place] Nasal [place] 0.65%) 0 ml EA NARE QIDPRN PRN PRN Reason: Nasal Congestion Sodium Chloride (Flush - Normal Saline) 10 ml IVF Q12HR [facility] Last Admin: 10/09/17 21:13 Dose: Not Given Sodium Chloride (Flush - Normal Saline) 10 ml IVF PRN PRN PRN Reason: Saline Flush Zolpidem Tartrate (Ambien) 5 mg PO HSPRN PRN PRN Reason: Insomnia
[2017-10-10] MEDS: Pantoprazole 40 MG VIAL IVP SCH (10:39)
[2017-10-10] MEDS ORDERED: ALPRAZolam 0.25 MG TAB PO PRN (12:46)
[2017-10-10] MEDS: Lorazepam 1 MG TAB PO PRN (13:53)
[2017-10-10] MEDS: Diazepam 5 MG TAB PO PRN (21:50)
[2017-10-11] MEDS: HYDROcodone/Acetaminophen 5/325 mg Tablet PO PRN ×5 (00:02→20:02)
[2017-10-11 04:44] LABS: INR-International Normal Ratio 1.3; Prothrombin Time 16.3 SEC (12.0-14.7)
[2017-10-11] MEDS: Pantoprazole 40 MG VIAL IVP SCH (08:09)
[2017-10-11] MEDS: Folic Acid 1 MG TAB PO SCH (08:09)
[2017-10-11] MEDS ORDERED: Apixaban 5 MG TAB PO SCH (09:00)
--- NOTE | 2017-10-11 11:10 | PDOC.PN ---
- Subjective Encounter Start Date: 10/11/17 Encounter Start Time: 09:30 Patient seen and examined for PE. No new complaints. No overnight events - Objective Resuscitation Status: Resuscitation Status FULL:Full Resuscitation MAR Reviewed: Yes Vital Signs & Weight: Vital Signs (12 hours) Temp Pulse Resp BP Pulse Ox 10/11/17 08:00 98.1 F 86 16 10/11/17 07:09 98.1 F 86 16 116/75 96 10/11/17 04:46 97.8 F 101 H 16 107/70 97 10/11/17 00:46 102 H 101/65 10/11/17 00:40 97.6 F 102 H 16 82/58 L 94 L Weight Admit Weight 143 lb 3.2 oz Weight 143 lb 3.2 oz I&O: 10/10/17 10/11/17 10/12/17 06:59 06:59 06:59 Intake Total 1387 360 Balance 1387 360 Result Diagrams: 10/10/17 04:03 10/10/17 04:03 Phys Exam - Physical Examination Constitutional: NAD HEENT: PERRLA, moist MMs, sclera anicteric Neck: no JVD, supple Respiratory: no wheezing, no rales, no rhonchi Cardiovascular: RRR, no significant murmur, no rub Gastrointestinal: soft, non-tender, no distention, positive bowel sounds Musculoskeletal: no edema, pulses present Neurological: non-focal, normal sensation, moves all 4 limbs Psychiatric: normal affect, A&O x 3 Skin: no rash, normal turgor Dx/Plan (1) Abdominal pain Code(s): R10.9 - UNSPECIFIED ABDOMINAL PAIN Status: Acute Qualifiers: Abdominal location: generalized Qualified Code(s): R10.84 - Generalized abdominal pain (2) Ascites, malignant Code(s): R18.0 - MALIGNANT ASCITES Status: Acute (3) Bilateral pulmonary embolism Code(s): I26.99 - OTHER PULMONARY EMBOLISM WITHOUT ACUTE COR PULMONALE Status : Acute (4) Dehydration Code(s): E86.0 - DEHYDRATION Status: Acute (5) Nausea & vomiting Code(s): R11.2 - NAUSEA WITH VOMITING, UNSPECIFIED Status: Acute (6) Peritoneal carcinomatosis Code(s): C78.6 - SECONDARY MALIGNANT NEOPLASM OF RETROPERITON AND PERITONEUM; C80.1 - MALIGNANT (PRIMARY) NEOPLASM, UNSPECIFIED Status: Acute (7) Pulmonary nodules/lesions, multiple Status: Acute (8) GERD (gastroesophageal reflux disease) Code(s): K21.9 - GASTRO-ESOPHAGEAL REFLUX DISEASE WITHOUT ESOPHAGITIS Status: Chronic (9) Hypertension Code(s): I10 - ESSENTIAL (PRIMARY) HYPERTENSION Status: Chronic - Plan cont current plan of care * 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 consult to assist with discharge place Review of Systems - Review of Systems Eyes: negative: Pain, Vision Change, Conjunctivae Inflammation, Eyelid Inflammation, Redness, Other ENT: negative: Ear Pain, Ear Discharge, Nose Pain, Nose Discharge, Nose Congestion, Mouth Pain, Mouth Swelling, Throat Pain, Throat Swelling, Other Respiratory: negative: Cough, Dry, Shortness of Breath, Hemoptysis, SOB with Excertion, Pleuritic Pain, Sputum, Wheezing Cardiovascular: negative: chest pain, palpitations, orthopnea, paroxysmal nocturnal dyspnea, edema, light headedness, other Gastrointestinal: negative: Nausea, Vomiting, Abdominal Pain, Diarrhea, Constipation, Melena, Hematochezia, Other Genitourinary: negative: Dysuria, Frequency, Incontinence, Hematuria, Retention , Other Musculoskeletal: negative: Neck Pain, Shoulder Pain, Arm Pain, Back Pain, Hand Pain, Leg Pain, Foot Pain, Other Skin: negative: Rash, Lesions, Kelvin, Bruising, Other - Medications/Allergies Allergies/Adverse Reactions: Allergies Allergy/AdvReac Type Severity Reaction Status Date / Time No Known Drug Allergies Allergy Verified 10/07/17 21:57 Medications: Current Medications Acetaminophen (Tylenol) 650 mg PO Q4H PRN PRN Reason: Headache/Fever or Pain Last Admin: 10/10/17 00:44 Dose: 650 mg Hydrocodone Bitart/Acetaminophen ([place] 5/325) 1 tab PO Q4H PRN PRN Reason: Moderate Pain (4-6) Last Admin: 10/11/17 08:23 Dose: 1 tab Al Hydroxide/Mg Hydroxide (Maalox) 30 ml PO Q6H PRN PRN Reason: Heartburn or Indigestion Alprazolam (Xanax) 0.25 mg PO TIDPRN PRN PRN Reason: Anxiety Apixaban (Eliquis) 10 mg PO BID [facility] Last Admin: 10/11/17 08:09 Dose: 10 mg Artificial Tears (Tears Naturale) 0 drop EA EYE PRN PRN PRN Reason: Dry Eyes Bisacodyl (Dulcolax) 10 mg [place] Q24H PRN PRN Reason: Constipation Diazepam (Valium) 5 mg PO Q24H PRN PRN Reason: Anxiety Last Admin: 10/10/17 21:50 Dose: 5 mg Folic Acid (Folvite) 1 mg PO DAILY [facility] Last Admin: 10/11/17 08:09 Dose: 1 mg Guaifenesin (Robitussin Sf) 200 mg PO Q4H PRN PRN Reason: Cough Hydralazine HCl (Apresoline) 10 mg SLOW IVP Q4H PRN PRN Reason: Systolic BP > 180 Promethazine HCl 12.5 mg/ (Sodium Chloride) 50.5 mls @ 202 mls/hr IVPB Q6H PRN PRN Reason: Nausea Last Admin: 10/09/17 21:15 Dose: 50.5 mls Loperamide HCl (Imodium) 2 mg PO PRN PRN PRN Reason: Diarrhea/Loose Stools Loratadine (Claritin) 10 mg PO DAILYPRN PRN PRN Reason: Sinus Symptoms Lorazepam (Ativan) 1 mg PO Q4H PRN PRN Reason: Anxiety/Agitation Last Admin: 10/10/17 13:53 Dose: 1 mg Magnesium Hydroxide (Milk Of Magnesium) 30 ml PO DAILYPRN PRN PRN Reason: Constipation Mineral Oil/White Petrolatum (Eucerin Cream) 0 gm TOP BIDPRN PRN PRN Reason: Dry Skin Morphine Sulfate (Morphine) 2 mg SLOW IVP Q4H PRN PRN Reason: Pain Last Admin: 10/09/17 18:48 Dose: 2 mg Ondansetron HCl (Zofran Odt) 4 mg PO Q6H PRN PRN Reason: Nausea/Vomiting Last Admin: 10/08/17 09:06 Dose: 4 mg Ondansetron HCl (Zofran) 4 mg IVP Q6H PRN PRN Reason: Nausea/Vomiting Pantoprazole Sodium (Protonix) 40 mg IVP DAILY [facility] Last Admin: 10/11/17 08:09 Dose: 40 mg Phenol (Chloraseptic [place] 180 Ml Bot) 0 ml PO PRN PRN PRN Reason: Sore Throat Promethazine HCl (Phenergan) 12.5 mg IM/IV Q6H PRN PRN Reason: Nausea/Vomiting Last Admin: 10/10/17 07:57 Dose: 12.5 mg Senna (Senokot) 2 tab PO HSPRN PRN PRN Reason: Constipation Sodium Chloride ([place] Nasal [place] 0.65%) 0 ml EA NARE QIDPRN PRN PRN Reason: Nasal Congestion Sodium Chloride (Flush - Normal Saline) 10 ml IVF Q12HR [facility] Last Admin: 10/11/17 08:09 Dose: 10 ml Sodium Chloride (Flush - Normal Saline) 10 ml IVF PRN PRN PRN Reason: Saline Flush Zolpidem Tartrate (Ambien) 5 mg PO HSPRN PRN PRN Reason: Insomnia
[2017-10-11] MEDS ORDERED: GoLYTELY 4,000 ml Bottle PO SCH (17:45)
[2017-10-11] MEDS: Diazepam 5 MG TAB PO PRN (20:03)
[2017-10-11] MEDS: Ondansetron ODT 4 MG TAB PO PRN (20:05)
[2017-10-12] MEDS: HYDROcodone/Acetaminophen 5/325 mg Tablet PO PRN ×4 (00:04→20:01)
--- NOTE | 2017-10-12 01:18 | CON ---
DATE OF CONSULTATION: 10/11/2017 REASON FOR CONSULTATION: Peritoneal carcinomatosis with suspicion for gastrointestinal malignancy. CONSULTING PHYSICIAN: Ms. Rayne Shea. HISTORY OF PRESENT ILLNESS: The patient is a 62-year-old female with past medical history of hyperte nsion, anxiety, and depression, who initially presented with complaints of abdominal pain and bloatin g. She states that she was in her usual state of health until 3-4 weeks ago when she began having in creased abdominal distention that was shortly followed by increased abdominal pain. The abdominal pa in was located primarily in lower abdominal quadrants, characterized as a sharp/stabbing character, w as constant with waxing and waning severity, and would reach a severity of approximately 9/10. The p ain did not have any clear alleviating or exacerbating factors, and with this increasing pain, it pro mpted her to seek health care attention with her primary care doctor. While at her primary care doct or's office, he noticed that she had increased abdominal distention and was subsequently sent to the ER for further evaluation. While in the ER, a CT scan showed a significant amount of abdominal ascit es as well as mass-like soft tissue thickening throughout the abdomen and pelvis concerning for perit byers carcinomatosis. She was ultimately admitted to the hospital for further evaluation with a para centesis performed shortly after admission with the cytology showing possible adenocarcinoma of a GI origin. Currently, she denies any nausea, vomiting, fevers, chills, dysphagia, odynophagia, weight l oss, hematemesis, melena, or hematochezia. REVIEW OF SYSTEMS: A 10-category review of systems was obtained with all responses negative except f or the pertinent positives as listed in the HPI. PAST MEDICAL HISTORY: As per HPI. PAST SURGICAL HISTORY: Hysterectomy, tonsillectomy. FAMILY HISTORY: Mother was diagnosed with primary liver cancer, no other GI malignancies. SOCIAL HISTORY: Has a [id number] smoking history, but denies any alcohol or illicit drug use. OUTPATIENT MEDICATIONS: Reviewed. ALLERGIES: No known drug allergies. PHYSICAL EXAMINATION: VITAL SIGNS: Temperature 97.9, pulse 93, blood pressure 84/63, respiratory rate 16, satting 97% on r oom air. GENERAL: The patient lying in bed in no acute distress. Alert and oriented x4. NECK: Supple, no JVD noted. CARDIOVASCULAR: Regular rate and rhythm with no discernible murmurs, gallops, or rubs. LUNGS: Clear to auscultation bilaterally with no discernible wheezes or rales. ABDOMEN: Normoactive bowel sounds. [id number] abdominal distention noted with tenderness to p alpation in all abdominal quadrants. EXTREMITIES: No cyanosis, clubbing, or edema. LABORATORY DATA: CBC with a hemoglobin and hematocrit of 11.3 and 34.6. INR 1.3. Chemistry from showed a sodium of 126, potassium 4, chloride 93, carbon dioxide 26, BUN 9, creatinine 0.78. AST 13, ALT 12, alkaline phosphatase 64, total bilirubin 0.4, albumin 2.5. CEA 2945, CA-125 of 540 . IMAGING DATA: CT obtained on 10/07/2017 showed pleural-based nodule on the right lung as well as a n odule in the left lower lobe and right lower lobe. There is also the presence of moderate ascites wi th soft tissue masses in the pericardial region, nodularity and soft tissue masses were also along th e peritoneal lining concerning for peritoneal carcinomatosis. ASSESSMENT AND PLAN: The patient is a 62-year-old female with past medical history of hypertension, anxiety, and depression presenting with increased abdominal distention secondary to ascites and perit byers carcinomatosis. Peritoneal carcinomatosis. The patient is presenting with a 3- to 4-week history of increasing abdom inal distention, abdominal pain, and complaints of early satiety that culminated with her visiting r primary care doctor for evaluation. Upon evaluation in the clinic, he subsequently recommended fur ther expedited evaluation in the ER where she had a CT scan consistent with peritoneal carcinomatosis . 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 Given the sudden onset of these symptoms in a relatively short amount of time, an upper GI tract malignancy cannot be ruled out at this time either including gastric cancer. At this point, she will need endoscopic evaluation for further determination of a primary lesion. RECOMMENDATIONS: 1. We would place the patient on a clear liquid diet and n.p.o. at midnight status in preparation fo r an EGD and colonoscopy tomorrow. 2. We will plan for EGD and colonoscopy for intraluminal evaluation for possible primary malignancy. 3. We would defer further workup to the Oncology service. We will continue to follow. Please call with any questions.
[2017-10-12 07:06] LABS: Hemoglobin 12.3 g/dL (12.0-16.0); Platelet Count 436 thou/uL (130-400)
[2017-10-12 12:32] LABS: INR-International Normal Ratio 1.6
[2017-10-12] MEDS: Folic Acid 1 MG TAB PO SCH (13:40)
[2017-10-12] MEDS: Ondansetron ODT 4 MG TAB PO PRN (13:41)
[2017-10-12] MEDS: Pantoprazole 40 MG VIAL IVP SCH (13:41)
--- NOTE | 2017-10-12 14:25 | PDOC.PN ---
- Subjective Encounter Start Date: 10/12/17 Encounter Start Time: 14:24 Subjective: feels weak and tired. still some AP and SOB on exertion - Objective Resuscitation Status: Resuscitation Status FULL:Full Resuscitation MAR Reviewed: Yes Vital Signs & Weight: Vital Signs (12 hours) Temp Pulse Resp BP Pulse Ox 10/12/17 12:00 97.4 F L 84 16 101/72 96 10/12/17 07:48 97.5 F L 92 18 90/62 95 10/12/17 04:00 97.5 F L 92 16 112/82 95 Weight Admit Weight 143 lb 3.2 oz Weight 143 lb 3.2 oz I&O: 10/11/17 10/12/17 10/13/17 06:59 06:59 06:59 Intake Total 360 4236 Balance 360 4236 Result Diagrams: 10/12/17 06:57 10/12/17 06:57 Additional Labs: Microbiology 10/08/17 09:50 Peritoneal Fluid Culture Body Fluid Culture - Preliminary 10/07/17 17:15 Venous blood - Left Arm Blood Culture - Preliminary NO GROWTH AT 48 HOURS 10/07/17 17:10 Venous blood - Right Arm Blood Culture - Preliminary NO GROWTH AT 48 HOURS Laboratory Tests 10/07/17 10/07/17 10/08/17 17:10 17:10 17:20 Carcinoembryonic Ag 2945.75 H CA 125 (PATRICA) 540.8 TSH 3rd Generation 2.0672 Hepatitis A IgM Ab Non-Reactive Hep Bs Antigen Non-Reactive Hep B Core IgM Ab Non-Reactive Hepatitis C Antibody Non-Reactive labs reviewed Phys Exam - Physical Examination Constitutional: NAD sleepy HEENT: PERRLA, moist MMs, sclera anicteric, oral pharynx no lesions Neck: no nodes, no JVD, supple, full ROM Respiratory: no wheezing, no rales, no rhonchi, clear to auscultation bilateral Cardiovascular: RRR, no significant murmur Gastrointestinal: soft, positive bowel sounds mild distension.Mild TTP Musculoskeletal: no edema, pulses present Neurological: non-focal, normal sensation, moves all 4 limbs Psychiatric: normal affect, A&O x 3 Skin: no rash Dx/Plan (1) Bilateral pulmonary embolism Code(s): I26.99 - OTHER PULMONARY EMBOLISM WITHOUT ACUTE COR PULMONALE Status : Acute (2) Ascites, malignant Code(s): R18.0 - MALIGNANT ASCITES Status: Acute Comment: s/p Paracentesis with pathology consistant with adenocarcinoma (3) Abdominal pain Code(s): R10.9 - UNSPECIFIED ABDOMINAL PAIN Status: Acute Qualifiers: Abdominal location: generalized Qualified Code(s): R10.84 - Generalized abdominal pain (4) Adenocarcinoma Code(s): C80.1 - MALIGNANT (PRIMARY) NEOPLASM, UNSPECIFIED Status: Acute Comment: Unknown primary.S/P Colonoscopy today (5) Peritoneal carcinomatosis Code(s): C78.6 - SECONDARY MALIGNANT NEOPLASM OF RETROPERITON AND PERITONEUM; C80.1 - MALIGNANT (PRIMARY) NEOPLASM, UNSPECIFIED Status: Acute (6) Pulmonary nodules/lesions, multiple Status: Acute (7) GERD (gastroesophageal reflux disease) Code(s): K21.9 - GASTRO-ESOPHAGEAL REFLUX DISEASE WITHOUT ESOPHAGITIS Status: Chronic (8) Hypertension Code(s): I10 - ESSENTIAL (PRIMARY) HYPERTENSION Status: Chronic - Plan out of bed/ambulate, DVT proph w/SCDs s/p EGD/colonoscopy today-results pending.appreciate GI & oncology input -: Cont supportive care.High CEA and CA-125? Colonic CA -: Lung lesions likley unrelated -: cont AC for B/L PE. -: cont PPI.monitor renal Fx and H/H daily * . Review of Systems - Review of Systems Constitutional: weakness, malaise. negative: fever, chills, sweats, other ENT: negative: Ear Pain, Ear Discharge, Nose Pain, Nose Discharge, Nose Congestion, Mouth Pain, Mouth Swelling, Throat Pain, Throat Swelling, Other Respiratory: negative: Cough, Dry, Shortness of Breath, Hemoptysis, SOB with Excertion, Pleuritic Pain, Sputum, Wheezing Cardiovascular: negative: chest pain, palpitations, orthopnea, paroxysmal nocturnal dyspnea, edema, light headedness, other Gastrointestinal: Abdominal Pain. negative: Nausea, Vomiting, Diarrhea, Constipation, Melena, Hematochezia, Other Genitourinary: negative: Dysuria, Frequency, Incontinence, Hematuria, Retention , Other Musculoskeletal: negative: Neck Pain, Shoulder Pain, Arm Pain, Back Pain, Hand Pain, Leg Pain, Foot Pain, Other Skin: negative: Rash, Lesions, Kelvin, Bruising, Other Neurological: negative: Weakness, Numbness, Incoordination, Change in Speech, Confusion, Seizures, Other - Medications/Allergies Allergies/Adverse Reactions: Allergies Allergy/AdvReac Type Severity Reaction Status Date / Time No Known Drug Allergies Allergy Verified 10/07/17 21:57 Medications: Current Medications Acetaminophen (Tylenol) 650 mg PO Q4H PRN PRN Reason: Headache/Fever or Pain Last Admin: 10/10/17 00:44 Dose: 650 mg Hydrocodone Bitart/Acetaminophen ([place] 5/325) 1 tab PO Q4H PRN PRN Reason: Moderate Pain (4-6) Last Admin: 10/12/17 13:41 Dose: 1 tab Al Hydroxide/Mg Hydroxide (Maalox) 30 ml PO Q6H PRN PRN Reason: Heartburn or Indigestion Alprazolam (Xanax) 0.25 mg PO TIDPRN PRN PRN Reason: Anxiety Artificial Tears (Tears Naturale) 0 drop EA EYE PRN PRN PRN Reason: Dry Eyes Bisacodyl (Dulcolax) 10 mg [place] Q24H PRN PRN Reason: Constipation Diazepam (Valium) 5 mg PO Q24H PRN PRN Reason: Anxiety Last Admin: 10/11/17 20:03 Dose: 5 mg Folic Acid (Folvite) 1 mg PO DAILY ALEK Last Admin: 10/12/17 13:40 Dose: 1 mg Guaifenesin (Robitussin Sf) 200 mg PO Q4H PRN PRN Reason: Cough Hydralazine HCl (Apresoline) 10 mg SLOW IVP Q4H PRN PRN Reason: Systolic BP > 180 Promethazine HCl 12.5 mg/ (Sodium Chloride) 50.5 mls @ 202 mls/hr IVPB Q6H PRN PRN Reason: Nausea Last Admin: 10/09/17 21:15 Dose: 50.5 mls Loperamide HCl (Imodium) 2 mg PO PRN PRN PRN Reason: Diarrhea/Loose Stools Loratadine (Claritin) 10 mg PO DAILYPRN PRN PRN Reason: Sinus Symptoms Lorazepam (Ativan) 1 mg PO Q4H PRN PRN Reason: Anxiety/Agitation Last Admin: 10/10/17 13:53 Dose: 1 mg Magnesium Hydroxide (Milk Of Magnesium) 30 ml PO DAILYPRN PRN PRN Reason: Constipation Mineral Oil/White Petrolatum (Eucerin Cream) 0 gm TOP BIDPRN PRN PRN Reason: Dry Skin Morphine Sulfate (Morphine) 2 mg SLOW IVP Q4H PRN PRN Reason: Pain Last Admin: 10/09/17 18:48 Dose: 2 mg Ondansetron HCl (Zofran Odt) 4 mg PO Q6H PRN PRN Reason: Nausea/Vomiting Last Admin: 10/12/17 13:41 Dose: 4 mg Ondansetron HCl (Zofran) 4 mg IVP Q6H PRN PRN Reason: Nausea/Vomiting Pantoprazole Sodium (Protonix) 40 mg IVP DAILY [facility] Last Admin: 10/12/17 13:41 Dose: 40 mg Phenol (Chloraseptic [place] 180 Ml Bot) 0 ml PO PRN PRN PRN Reason: Sore Throat Polyethylene Glycol/Electrolytes (Golytely) 4,000 ml PO ONE [facility] Stop: 10/12/17 17:46 Last Admin: 10/11/17 18:18 Dose: 4,000 ml Promethazine HCl (Phenergan) 12.5 mg IM/IV Q6H PRN PRN Reason: Nausea/Vomiting Last Admin: 10/10/17 07:57 Dose: 12.5 mg Senna (Senokot) 2 tab PO HSPRN PRN PRN Reason: Constipation Sodium Chloride ([place] Nasal [place] 0.65%) 0 ml EA NARE QIDPRN PRN PRN Reason: Nasal Congestion Sodium Chloride (Flush - Normal Saline) 10 ml IVF Q12HR [facility] Last Admin: 10/12/17 13:41 Dose: 10 ml Sodium Chloride (Flush - Normal Saline) 10 ml IVF PRN PRN PRN Reason: Saline Flush Zolpidem Tartrate (Ambien) 5 mg PO HSPRN PRN PRN Reason: Insomnia
[2017-10-12] MEDS ORDERED: PROPOFOL 200 MG/20 ML VIAL ONE (15:04)
--- NOTE | 2017-10-12 15:28 | OP ---
DATE OF PROCEDURE: 10/12/2017 PROCEDURES: Esophagogastroduodenoscopy with biopsy, colonoscopy with biopsies and submucosal injecti on. INDICATION FOR PROCEDURE: Abnormal GI imaging, peritoneal carcinomatosis. DESCRIPTION OF PROCEDURE: After the risks and benefits of the procedures were explained to the patie nt including risks of bleeding, infection, perforation, reaction to anesthesia and/or pain informed c onsent was obtained. The patient was then taken to the endoscopy suite where deep sedation was admin istered via propofol and anesthesia support. Once adequate sedation was achieved, the standard gastr oscope was introduced into the mouth with intubation of the esophagus, stomach and proximal small int estine with the findings listed below. Once this portion of the procedure was completed, all equipme nt was removed and the bed was rotated approximately 180 degrees. After a digital rectal examination , the standard colonoscope was introduced into the rectum and advanced to the terminal ileum with mod erate difficulty secondary to significant tortuosity and scar tissue within the sigmoid colon. The q uality of the prep was fair with a small to moderate amount of both solid and liquid stool that was a menable to aggressive irrigation and suctioning. The patient tolerated the procedures well with no i mmediate perioperative complications. EGD FINDINGS: Esophagus: Normal-appearing mucosa was seen in the proximal and mid esophagus. An esophageal strict ure/ring was encountered at 35 cm past the incisors that was initially difficult to traverse with the gastroscope, but was amenable to gentle pressure with passage beyond the stricture with that maneuve r. There was a minimal amount of increased mucosal erythema associated with esophageal stricture. M ultiple biopsies were taken of the stricture given the concurrent history of peritoneal carcinomatosi s and possibility of malignant stricture (although this stricture did appear benign). The diaphragma tic pinch was seen at 37 cm with the GE junction well seen at 35 cm denoting 2 cm hiatal hernia. Stomach: Mild mucosal erythema was seen in the gastric cardia, fundus and body. There was associate d also with mild mucosal nodularity. Multiple random biopsies were taken from this region for evalua tion given concern for possible malignant process. Otherwise, normal-appearing mucosa was seen in th e gastric antrum and at the incisura. There was no evidence of erosions, ulcerations, mass lesions o r active/recent bleeding. Duodenum: Normal-appearing mucosa was seen both the duodenal bulb and second portion of the duodenum . There was no evidence of erosions, ulcerations, mass lesions or active/recent bleeding. IMPRESSION: 1. Medium to high grade esophageal stricture seen at 35 cm past the incisors that was amenable to ge ntle pressure with the gastroscope status post multiple biopsies. 2. Mild diffuse mucosal erythema in the gastric cardia, fundus and body with nonspecific etiology, s tatus post biopsies. 3. A 2 cm hiatal hernia. COLONOSCOPY FINDINGS: Digital rectal examination normal. Colon Findings: A small to medium amount of both solid and liquid stool was encountered throughout t he colon, but was partially amenable to aggressive irrigation and suctioning with adequate visualizat ion of the mucosa seen. Normal appearing mucosa was seen within the terminal ileum as well as at the ileocecal valve and appendiceal orifice. Normal-appearing mucosa was seen in the cecum, ascending a nd proximal transverse colon within the mid transverse colon at approximately 60 cm past the anal howard ge. A large polypoid mass measuring approximately 5-6 cm in size and involving multiple colonic fold s was encountered. Multiple biopsies were taken and placed in a specimen jar for evaluation. Using Mariaa ink, submucosal injections were placed on either side of the lesion for future reference and/or possible colonic resection. Normal appearing mucosa was then seen in the distal transverse colon an d proximal descending colon. However, within the descending colon at approximately 40 cm past the an al verge, I encountered a large circumferential fungating and ulcerated mass that was friable to the passage of the colonoscope. He did have some areas of deepened ulcerations that were cratered and co ncerning for possible perforation. Multiple biopsies were taken of this region. Actually, the ulcer ated mass extended distally approximately 5-7 cm. Multiple biopsies were then taken of the mass and placed in a specimen jar for evaluation. Using Mariaa ink, submucosal injections were made at both th e proximal and distal end of the lesion for future reference and/or colonic resection. Normal appear ing mucosa was then seen in the distal descending colon significant angulation as well as scar tissue was also seen in the sigmoid colon that was difficult to traverse with the standard colonoscope and did require placement of external abdominal pressure to facilitate passage of the scope through this region. However, careful examination of this region did not yield any abnormalities. Normal appeari ng mucosa was seen in the rectum, small to medium sized internal hemorrhoids were seen on rectal retr oflexion. IMPRESSION: 1. Small to moderate amount of retained and solid and liquid stool was seen throughout the colon, bu t was amenable to aggressive irrigation and suctioning transforming the prep to adequate 2. A large polypoid mass measuring approximately 5-6 cm in size was seen at 60 cm, status post multi ple biopsies and tattoo placement. 3. A large circumferential fungating and ulcerated mass was seen at 40 cm, status post multiple biop sies and tattoo placement. This particular lesion occupied approximately 60% of the colonic lumen. 4. Significant scarring and angulation of the sigmoid colon. 5. Internal hemorrhoids. RECOMMENDATIONS: 1. We would continue to trend patient's H&H and transfuse as necessary to maintain an H&H of 7/21. 2. We continue to monitor clinically for signs of possible perforation from this colonoscopy. 3. We will follow up on biopsy results, but the presence of both lesions within the colon are highly concerning for a colonic malignancy. 4. We will continue to monitor the patient's clinical status for swallowing with repeat EGD and poss ible dilation if given significant symptoms of dysphagia. 5. Defer to Oncology Service for further management of peritoneal carcinomatosis with most likely co lonic primary malignancy. We will continue to follow. Please call with any questions.
[2017-10-12] MEDS: Zolpidem Tartrate 5 MG TAB PO PRN (20:13)
[2017-10-13] MEDS: HYDROcodone/Acetaminophen 5/325 mg Tablet PO PRN ×2 (03:12→20:10)
[2017-10-13 05:41] LABS: INR-International Normal Ratio 1.3; Prothrombin Time 16.7 SEC (12.0-14.7)
[2017-10-13] MEDS: Lorazepam 1 MG TAB PO PRN ×2 (08:04→23:08)
[2017-10-13] MEDS: Folic Acid 1 MG TAB PO SCH (08:04)
[2017-10-13 09:24] LABS: Hemoglobin 12.7 g/dL (12.0-16.0)
[2017-10-13 09:41] LABS: Anion Gap 13 mmol/L (10-20); BUN (Urea Nitrogen) 7 mg/dL (9.8-20.1); Calc. Creatinine Clearance 73 mL/min (70-130); Calcium 8.3 mg/dL (7.8-10.44); Carbon Dioxide 22 mmol/L (22-29); Chloride 92 mmol/L (98-107); Estimated GFR-MDRD 69; Glucose 105 mg/dL (70-105); Sodium 123 mmol/L (136-145)
[2017-10-13] MEDS: Ondansetron ODT 4 MG TAB PO PRN ×2 (10:34→23:13)
[2017-10-13] MEDS: Pantoprazole 40 MG VIAL IVP SCH (10:35)
--- NOTE | 2017-10-13 12:49 | PRG ---
DATE OF SERVICE: 10/13/2017 REASON FOR CONSULTATION: Peritoneal carcinomatosis, colon cancer. SUBJECTIVE: The patient states that she was unable to sleep well last night with increased fatigue t his morning. She was very tearful at bedside this morning with discussion of her current plan of car e and the diagnostic findings on colonoscopy yesterday. Currently, she denies any nausea, vomiting, fevers, chills, dysphagia, or odynophagia, but does continue to have periumbilical abdominal pain susu t is unchanged from previous. OBJECTIVE: VITAL SIGNS: Temperature 97.8, pulse 92, blood pressure 97/70, respiratory rate 16, satting 95% on r oom air. GENERAL: Patient is lying in bed in no acute distress. Alert and oriented x4. Very tearful during the interview, given the diagnosis of cancer. CARDIOVASCULAR: Regular rate and rhythm. LUNGS: Clear to auscultation bilaterally. ABDOMEN: [id number] abdominal distention noted with tenderness to palpation in all abdominal q uadrants. EXTREMITIES: No cyanosis, clubbing, or edema. LABORATORY DATA: No current studies are available for review. IMAGING DATA: EGD and colonoscopy performed on 10/12/2017 showed minimal mucosal erythema within the gastric body concerning for gastritis versus infiltrative process. She also had an esophageal stric ture at the GE junction that was successfully biopsied for evaluation, but not significantly interven ed upon due to possibility of malignant stricture (although it did appear benign) colonoscopy showed the presence of a large polypoid mass within the mid transverse colon measuring approximately 5-6 cm in size that was not amenable to endoscopic resection. She also had a large circumferential mass wit hin the descending colon that occupied 60% of the colonic lumen, highly suspicious for colonic malign ke. ASSESSMENT AND PLAN: The patient is a 62-year-old female with past medical history of hypertension, anxiety, and depression, presenting with increased abdominal distention secondary to ascites, and per itoneal carcinomatosis, most likely from a colonic primary malignancy. Colonic malignancy. The patient initially presented with a 3-4-week history of increasing abdominal distention, abdominal pain, and complaints of early satiety that culminated in her visiting her PCP. 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 CT scan obtained o n admission also showed evidence of peritoneal carcinomatosis. She ultimately underwent both upper a nd lower endoscopy on 10/12/2017 with the colonoscopy finding a large polypoid mass within the mid tr ansverse colon as well as a large ulcerated mass within the descending colon, both of which could be sites for a primary colonic malignancy. Biopsies were taken of both of these lesions with biopsy sti ll pending at this time. RECOMMENDATIONS: 1. We will follow up on biopsy results, but have a high index of suspicion for colonic malignancy. 2. We would defer to Oncology Service for further evaluation and/or treatment related to probable me tastatic colon cancer. We will sign off at this time. Please call with any questions.
--- NOTE | 2017-10-13 14:51 | PDOC.PN ---
- Subjective Encounter Start Date: 10/13/17 Encounter Start Time: 14:49 Subjective: no new complaints but feels overwhelmed by diagnosis -: slight AP and poor appetite - Objective Resuscitation Status: Resuscitation Status FULL:Full Resuscitation MAR Reviewed: Yes Vital Signs & Weight: Vital Signs (12 hours) Temp Pulse Resp BP Pulse Ox 10/13/17 08:15 97.8 F 92 16 97/70 95 10/13/17 08:00 97.8 F 92 16 95 10/13/17 04:00 97.7 F 78 18 117/67 96 Weight Admit Weight 143 lb 3.2 oz Weight 143 lb 3.2 oz I&O: 10/12/17 10/13/17 10/14/17 06:59 06:59 06:59 Intake Total 4236 562 Balance 4236 562 Result Diagrams: 10/13/17 09:10 10/13/17 09:10 Additional Labs: Microbiology 10/08/17 09:50 Peritoneal Fluid Culture Body Fluid Culture - Final 10/07/17 17:15 Venous blood - Left Arm Blood Culture - Final NO GROWTH IN 5 DAYS 10/07/17 17:10 Venous blood - Right Arm Blood Culture - Final NO GROWTH IN 5 DAYS labs reviewed Phys Exam - Physical Examination Constitutional: NAD sleepy HEENT: PERRLA, moist MMs, sclera anicteric, oral pharynx no lesions Neck: no nodes, no JVD, supple, full ROM Respiratory: no wheezing, no rales, no rhonchi, clear to auscultation bilateral Cardiovascular: RRR, no significant murmur Gastrointestinal: soft, non-tender, no distention, positive bowel sounds Musculoskeletal: no edema, pulses present Neurological: non-focal, normal sensation, moves all 4 limbs Psychiatric: normal affect, A&O x 3 Skin: no rash Dx/Plan (1) Bilateral pulmonary embolism Code(s): I26.99 - OTHER PULMONARY EMBOLISM WITHOUT ACUTE COR PULMONALE Status : Acute Comment: eliquis on hold due to colonoscopy (2) Ascites, malignant Code(s): R18.0 - MALIGNANT ASCITES Status: Acute Comment: s/p Paracentesis with pathology consistant with adenocarcinoma (3) Abdominal pain Code(s): R10.9 - UNSPECIFIED ABDOMINAL PAIN Status: Acute Qualifiers: Abdominal location: generalized Qualified Code(s): R10.84 - Generalized abdominal pain (4) Adenocarcinoma Code(s): C80.1 - MALIGNANT (PRIMARY) NEOPLASM, UNSPECIFIED Status: Acute Comment: Unknown primary.S/P Colonoscopy 10/12/17 (5) Peritoneal carcinomatosis Code(s): C78.6 - SECONDARY MALIGNANT NEOPLASM OF RETROPERITON AND PERITONEUM; C80.1 - MALIGNANT (PRIMARY) NEOPLASM, UNSPECIFIED Status: Acute (6) Pulmonary nodules/lesions, multiple Status: Acute (7) GERD (gastroesophageal reflux disease) Code(s): K21.9 - GASTRO-ESOPHAGEAL REFLUX DISEASE WITHOUT ESOPHAGITIS Status: Chronic (8) Hypertension Code(s): I10 - ESSENTIAL (PRIMARY) HYPERTENSION Status: Chronic (9) Colon cancer Code(s): C18.9 - MALIGNANT NEOPLASM OF COLON, UNSPECIFIED Status: Chronic - Plan PT/OT, out of bed/ambulate, DVT proph w/SCDs discussed w gi. RESTART eLIQUIS FROM TOMORROW -: start regular diet -: OP oncology f/u for treatment options. -: follow Bx results from colonoscopy -: hemodynamically stable .refuses rehab eval or HH * .monitor H/H Review of Systems - Review of Systems Constitutional: weakness, malaise. negative: fever, chills, sweats, other ENT: negative: Ear Pain, Ear Discharge, Nose Pain, Nose Discharge, Nose Congestion, Mouth Pain, Mouth Swelling, Throat Pain, Throat Swelling, Other Respiratory: negative: Cough, Dry, Shortness of Breath, Hemoptysis, SOB with Excertion, Pleuritic Pain, Sputum, Wheezing Cardiovascular: negative: chest pain, palpitations, orthopnea, paroxysmal nocturnal dyspnea, edema, light headedness, other Gastrointestinal: Abdominal Pain. negative: Nausea, Vomiting, Diarrhea, Constipation, Melena, Hematochezia, Other Genitourinary: negative: Dysuria, Frequency, Incontinence, Hematuria, Retention , Other Musculoskeletal: negative: Neck Pain, Shoulder Pain, Arm Pain, Back Pain, Hand Pain, Leg Pain, Foot Pain, Other Neurological: negative: Weakness, Numbness, Incoordination, Change in Speech, Confusion, Seizures, Other - Medications/Allergies Allergies/Adverse Reactions: Allergies Allergy/AdvReac Type Severity Reaction Status Date / Time No Known Drug Allergies Allergy Verified 10/07/17 21:57 Medications: Current Medications Acetaminophen (Tylenol) 650 mg PO Q4H PRN PRN Reason: Headache/Fever or Pain Last Admin: 10/10/17 00:44 Dose: 650 mg Hydrocodone Bitart/Acetaminophen ([place] 5/325) 1 tab PO Q4H PRN PRN Reason: Moderate Pain (4-6) Last Admin: 10/13/17 03:12 Dose: 1 tab Al Hydroxide/Mg Hydroxide (Maalox) 30 ml PO Q6H PRN PRN Reason: Heartburn or Indigestion Alprazolam (Xanax) 0.25 mg PO TIDPRN PRN PRN Reason: Anxiety Artificial Tears (Tears Naturale) 0 drop EA EYE PRN PRN PRN Reason: Dry Eyes Bisacodyl (Dulcolax) 10 mg [place] Q24H PRN PRN Reason: Constipation Diazepam (Valium) 5 mg PO Q24H PRN PRN Reason: Anxiety Last Admin: 10/11/17 20:03 Dose: 5 mg Folic Acid (Folvite) 1 mg PO DAILY ALEK Last Admin: 10/13/17 08:04 Dose: 1 mg Guaifenesin (Robitussin Sf) 200 mg PO Q4H PRN PRN Reason: Cough Hydralazine HCl (Apresoline) 10 mg SLOW IVP Q4H PRN PRN Reason: Systolic BP > 180 Promethazine HCl 12.5 mg/ (Sodium Chloride) 50.5 mls @ 202 mls/hr IVPB Q6H PRN PRN Reason: Nausea Last Admin: 10/09/17 21:15 Dose: 50.5 mls Loperamide HCl (Imodium) 2 mg PO PRN PRN PRN Reason: Diarrhea/Loose Stools Loratadine (Claritin) 10 mg PO DAILYPRN PRN PRN Reason: Sinus Symptoms Lorazepam (Ativan) 1 mg PO Q4H PRN PRN Reason: Anxiety/Agitation Last Admin: 10/13/17 08:04 Dose: 1 mg Magnesium Hydroxide (Milk Of Magnesium) 30 ml PO DAILYPRN PRN PRN Reason: Constipation Mineral Oil/White Petrolatum (Eucerin Cream) 0 gm TOP BIDPRN PRN PRN Reason: Dry Skin Morphine Sulfate (Morphine) 2 mg SLOW IVP Q4H PRN PRN Reason: Pain Last Admin: 10/13/17 10:34 Dose: 2 mg Ondansetron HCl (Zofran Odt) 4 mg PO Q6H PRN PRN Reason: Nausea/Vomiting Last Admin: 10/13/17 10:34 Dose: 4 mg Ondansetron HCl (Zofran) 4 mg IVP Q6H PRN PRN Reason: Nausea/Vomiting Pantoprazole Sodium (Protonix) 40 mg IVP DAILY [facility] Last Admin: 10/13/17 10:35 Dose: 40 mg Phenol (Chloraseptic [place] 180 Ml Bot) 0 ml PO PRN PRN PRN Reason: Sore Throat Promethazine HCl (Phenergan) 12.5 mg IM/IV Q6H PRN PRN Reason: Nausea/Vomiting Last Admin: 10/10/17 07:57 Dose: 12.5 mg Senna (Senokot) 2 tab PO HSPRN PRN PRN Reason: Constipation Sodium Chloride ([place] Nasal [place] 0.65%) 0 ml EA NARE QIDPRN PRN PRN Reason: Nasal Congestion Sodium Chloride (Flush - Normal Saline) 10 ml IVF Q12HR [facility] Last Admin: 10/13/17 10:35 Dose: 10 ml Sodium Chloride (Flush - Normal Saline) 10 ml IVF PRN PRN PRN Reason: Saline Flush Zolpidem Tartrate (Ambien) 5 mg PO HSPRN PRN PRN Reason: Insomnia Last Admin: 10/12/17 20:13 Dose: 5 mg
[2017-10-13] MEDS ORDERED: Nystatin Powder 15 GM BOT TOP PRN (18:22)
[2017-10-13] MEDS: Mag-Al 1200 mg/1200 mg/30 ML UDCUP PO PRN (20:10)
[2017-10-13] MEDS: Zolpidem Tartrate 5 MG TAB PO PRN (20:10)
[2017-10-14 04:38] LABS: INR-International Normal Ratio 1.2; Prothrombin Time 15.5 SEC (12.0-14.7)
[2017-10-14 04:46] LABS: Anion Gap 12 mmol/L (10-20); BUN (Urea Nitrogen) 7 mg/dL (9.8-20.1); Calc. Creatinine Clearance 71 mL/min (70-130); Calcium 8.1 mg/dL (7.8-10.44); Carbon Dioxide 24 mmol/L (22-29); Chloride 91 mmol/L (98-107); Estimated GFR-MDRD 66; Glucose 105 mg/dL (70-105); Sodium 123 mmol/L (136-145)
[2017-10-14 05:00] LABS: Band 2 % (5-11); Hemoglobin 11.9 g/dL (12.0-16.0); MDiff Complete? YES; Mean Corpuscular HGB CONC 31.8 g/dL (32.0-36.0); Mean Corpuscular Hemoglobin 29.3 pg (27.0-31.0); Mean Corpuscular Volume 91.9 fL (78.0-98.0); Mean Platelet Volume 7.1 fL (7.4-10.4); Neutrophil 73 % (42-75); Platelet Count 457 thou/uL (130-400); RBC Distribution Width 14.3 % (11.5-14.5); Red Blood Cell (RBC) Count 4.06 mill/uL (4.20-5.40); White Blood Cell (WBC) Count 10.3 thou/uL (4.8-10.8)
[2017-10-14 05:01] LABS: Eosinophils 2 % (0-10); Lymphocytes 10 % (21-51); Monocytes 13 % (0-10); PLT Morphology Comment Appears Increased
--- NOTE | 2017-10-14 08:41 | CT ---
CT HEAD WITHOUT CONTRAST: Multiple axial tomograms were obtained through the head without IV contrast. INDICATION: Fall with injury to head. Mild frontal lobe volume loss. Ventricles have normal size and position. There is no evidence of in tracranial hemorrhage. No infarct or mass. Sinuses and mastoids appear clear. IMPRESSION: No acute process identified. POS: [facility]
[2017-10-14 09:37] LABS: Anion Gap 12 mmol/L (10-20); BUN (Urea Nitrogen) 7 mg/dL (9.8-20.1); Calc. Creatinine Clearance 71 mL/min (70-130); Calcium 8.3 mg/dL (7.8-10.44); Carbon Dioxide 25 mmol/L (22-29); Chloride 91 mmol/L (98-107); Estimated GFR-MDRD 66; Glucose 103 mg/dL (70-105); Sodium 124 mmol/L (136-145)
[2017-10-14] MEDS: Folic Acid 1 MG TAB PO SCH (09:50)
[2017-10-14] MEDS: Pantoprazole 40 MG VIAL IVP SCH (09:50)
[2017-10-14] MEDS: Ondansetron ODT 4 MG TAB PO PRN ×2 (09:55→20:47)
--- NOTE | 2017-10-14 10:27 | CON ---
DATE OF CONSULTATION: 10/14/2017 REASON FOR CONSULTATION: Hyponatremia. HISTORY OF PRESENT ILLNESS: This is a 62-year-old female with a past medical history significant for peritoneal carcinomatosis, had a sodium of 130 on 10/07/2017 which has decreased to 123. The patien t has generalized edema and according to the nurses had been drinking freely. Yesterday she had 4.2 liters intake. The patient denies headache, numbness, tingling or weakness. Denies any nausea, vomi ting or chest pain. PAST MEDICAL HISTORY: Hysterectomy, hypertension, anxiety, depression, endoscopy. HOME MEDICATIONS: List reviewed. HOSPITAL MEDICATIONS: List reviewed. ALLERGIES: Reviewed. SOCIAL HISTORY: No alcohol. FAMILY HISTORY: Negative for ESRD. REVIEW OF SYSTEMS: Fifteen point review of systems was performed and negative except for positives n oted above. GENERAL: Weakness- HEAD: Headache- NECK: No swelling or lumps. NOSE: No epistaxis or discharge. EYES: No diplopia or pain. RESPIRATORY: Dyspnea- CARDIOVASCULAR: Chest pain- GASTROINTESTINAL: Nausea- /[employer]LE[employer] SYSTEM[employer] WORKER: Hematuria- MUSCULOSKELETAL: No joint pain. NEUROPSYCHIATIC SYSTEMS: No suicidal ideation. No ideation. SKIN: Denies any rash or ulcer. CONSTITUTIONAL: No fever or chills. PHYSICAL EXAMINATION: GENERAL: Patient is awake, alert. VITAL SIGNS: Afebrile, pulse 99, breathing 16, blood pressure 108/77. OBJECTIVE: See above. Awake, alert, in no acute distress. GENERAL APPEARANCE AND MENTAL STATUS: Fair. HEAD/NECK: Normocephalic. Atraumatic. EYES: EOMI. No deformity. EARS: Clear. No ulcers. NOSE: Intact. No lesions. MOUTH: Clear. No discharge. THROAT: Clear. No exudate. LUNGS: Clear. No crackles. CARDIAC: S1, S2. No rub. ABDOMEN: Benign. BS+. GENITALIA/RECTUM: Lopes absent. BACK/EXTREMITIES: Lower extremities have 3+ edema- NEUROLOGICAL: Alert and motor intact. SKIN: Rash- Bruise- LYMPHATICS: Edema- Ulcer- LABORATORY: Sodium 123. TSH was 2. ASSESSMENT AND RECOMMENDATIONS: 1. 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 2. Excessive fluid intake. I would recommend 800 mL fluid restriction, order a serum and urine osmo lality. 3. Hypertension, stable. 4. Medication list, glomerular filtration rate are appropriate.
[2017-10-14] MEDS ORDERED: Apixaban 5 MG TAB PO SCH (11:45)
[2017-10-14] MEDS: Mag-Al 1200 mg/1200 mg/30 ML UDCUP PO PRN (13:53)
[2017-10-14 15:20] LABS: Bilirubin Negative (Negative); Blood, Urine Negative (Negative); Clarity CLOUDY (Clear); Glucose, Urine (Dipstick) Negative (Negative); Leukocyte Trace (Negative); Nitrite Negative (Negative); Protein, Urine (Dipstick) Trace mg/dL (Neg-Trace); Specific Gravity, Urine 1.011 (1.002-1.036); Urobilinogen 0.2 mg/dL (0.2-1.0); pH, Urine 6.5 (5.0-9.0)
--- NOTE | 2017-10-14 15:21 | PDOC.PN ---
- Subjective Encounter Start Date: 10/14/17 Encounter Start Time: 15:19 Subjective: feels sleepy.fell this morning while trying to go to bathroom -: Sister in law at bedside.care discussed -: pt denies any significant Abd pain/SOB/distension - Objective Resuscitation Status: Resuscitation Status FULL:Full Resuscitation MAR Reviewed: Yes Vital Signs & Weight: Vital Signs (12 hours) Temp Pulse Resp BP Pulse Ox 10/14/17 11:00 98.0 F 100 18 108/72 96 10/14/17 08:00 98.0 F 100 18 96 10/14/17 07:10 97.9 F 99 16 129/87 96 10/14/17 03:47 97.7 F 101 H 18 108/77 98 Weight Admit Weight 143 lb 3.2 oz Weight 143 lb 3.2 oz I&O: 10/13/17 10/14/17 10/15/17 06:59 06:59 06:59 Intake Total 562 502 Balance 562 502 Result Diagrams: 10/14/17 04:01 10/14/17 08:47 Additional Labs: Microbiology 10/08/17 09:50 Peritoneal Fluid Culture Body Fluid Culture - Final 10/07/17 17:15 Venous blood - Left Arm Blood Culture - Final NO GROWTH IN 5 DAYS 10/07/17 17:10 Venous blood - Right Arm Blood Culture - Final NO GROWTH IN 5 DAYS Laboratory Tests 09/25/17 10/07/17 10/09/17 14:13 17:10 05:02 Sodium 129 L 130 L 126 L 10/13/17 10/14/17 09:10 04:01 Sodium 123 L 123 L labs reviewed Phys Exam - Physical Examination Constitutional: NAD HEENT: PERRLA, moist MMs, sclera anicteric, oral pharynx no lesions Neck: no nodes, no JVD, supple, full ROM Respiratory: no wheezing, no rales, no rhonchi, clear to auscultation bilateral Cardiovascular: RRR, no significant murmur Gastrointestinal: soft, non-tender, no distention, positive bowel sounds Musculoskeletal: no edema, pulses present Neurological: non-focal, normal sensation, moves all 4 limbs Psychiatric: normal affect, A&O x 3 Skin: no rash Dx/Plan (1) Hyponatremia Code(s): E87.1 - HYPO-OSMOLALITY AND HYPONATREMIA Status: Acute Comment: likley SIADH (2) Bilateral pulmonary embolism Code(s): I26.99 - OTHER PULMONARY EMBOLISM WITHOUT ACUTE COR PULMONALE Status : Acute (3) Ascites, malignant Code(s): R18.0 - MALIGNANT ASCITES Status: Acute Comment: s/p Paracentesis with pathology consistant with adenocarcinoma (4) Abdominal pain Code(s): R10.9 - UNSPECIFIED ABDOMINAL PAIN Status: Acute Qualifiers: Abdominal location: generalized Qualified Code(s): R10.84 - Generalized abdominal pain (5) Adenocarcinoma Code(s): C80.1 - MALIGNANT (PRIMARY) NEOPLASM, UNSPECIFIED Status: Acute Comment: Unknown primary.S/P Colonoscopy 10/12/17 (6) Peritoneal carcinomatosis Code(s): C78.6 - SECONDARY MALIGNANT NEOPLASM OF RETROPERITON AND PERITONEUM; C80.1 - MALIGNANT (PRIMARY) NEOPLASM, UNSPECIFIED Status: Acute (7) Pulmonary nodules/lesions, multiple Status: Acute (8) GERD (gastroesophageal reflux disease) Code(s): K21.9 - GASTRO-ESOPHAGEAL REFLUX DISEASE WITHOUT ESOPHAGITIS Status: Chronic (9) Hypertension Code(s): I10 - ESSENTIAL (PRIMARY) HYPERTENSION Status: Chronic (10) Colon cancer Code(s): C18.9 - MALIGNANT NEOPLASM OF COLON, UNSPECIFIED Status: Chronic - Plan plan discussed w/ family, PT/OT, incentive spirometry, out of bed/ambulate, DVT proph w/SCDs Consult nephrology for hyponatremia. ab [place] form lung disease/PE -: fluid restriction for free water.monitor -: restart Eliquis today and monitor H/H -: brain Ct post fall done & reviewed-no hemorrhage -: am labs. ab [place] in am if sodium better & no bleed * . Review of Systems - Review of Systems Constitutional: negative: fever, chills, sweats, weakness, malaise, other Respiratory: negative: Cough, Dry, Shortness of Breath, Hemoptysis, SOB with Excertion, Pleuritic Pain, Sputum, Wheezing Cardiovascular: negative: chest pain, palpitations, orthopnea, paroxysmal nocturnal dyspnea, edema, light headedness, other Gastrointestinal: negative: Nausea, Vomiting, Abdominal Pain, Diarrhea, Constipation, Melena, Hematochezia, Other Genitourinary: negative: Dysuria, Frequency, Incontinence, Hematuria, Retention , Other Musculoskeletal: negative: Neck Pain, Shoulder Pain, Arm Pain, Back Pain, Hand Pain, Leg Pain, Foot Pain, Other Neurological: negative: Weakness, Numbness, Incoordination, Change in Speech, Confusion, Seizures, Other - Medications/Allergies Allergies/Adverse Reactions: Allergies Allergy/AdvReac Type Severity Reaction Status Date / Time No Known Drug Allergies Allergy Verified 10/07/17 21:57 Medications: Current Medications Acetaminophen (Tylenol) 650 mg PO Q4H PRN PRN Reason: Headache/Fever or Pain Last Admin: 10/10/17 00:44 Dose: 650 mg Hydrocodone Bitart/Acetaminophen ([place] 5/325) 1 tab PO Q4H PRN PRN Reason: Moderate Pain (4-6) Last Admin: 10/13/17 20:10 Dose: 1 tab Al Hydroxide/Mg Hydroxide (Maalox) 30 ml PO Q6H PRN PRN Reason: Heartburn or Indigestion Last Admin: 10/14/17 13:53 Dose: 30 ml Apixaban (Eliquis) 5 mg PO BID [facility] Artificial Tears (Tears Naturale) 0 drop EA EYE PRN PRN PRN Reason: Dry Eyes Bisacodyl (Dulcolax) 10 mg [place] Q24H PRN PRN Reason: Constipation Diazepam (Valium) 5 mg PO Q24H PRN PRN Reason: Anxiety Last Admin: 10/11/17 20:03 Dose: 5 mg Folic Acid (Folvite) 1 mg PO DAILY [facility]LEK Last Admin: 10/14/17 09:50 Dose: 1 mg Guaifenesin (Robitussin Sf) 200 mg PO Q4H PRN PRN Reason: Cough Hydralazine HCl (Apresoline) 10 mg SLOW IVP Q4H PRN PRN Reason: Systolic BP > 180 Promethazine HCl 12.5 mg/ (Sodium Chloride) 50.5 mls @ 202 mls/hr IVPB Q6H PRN PRN Reason: Nausea Last Admin: 10/09/17 21:15 Dose: 50.5 mls Loperamide HCl (Imodium) 2 mg PO PRN PRN PRN Reason: Diarrhea/Loose Stools Loratadine (Claritin) 10 mg PO DAILYPRN PRN PRN Reason: Sinus Symptoms Lorazepam (Ativan) 1 mg PO Q4H PRN PRN Reason: Anxiety/Agitation Last Admin: 10/13/17 23:08 Dose: 1 mg Magnesium Hydroxide (Milk Of Magnesium) 30 ml PO DAILYPRN PRN PRN Reason: Constipation Mineral Oil/White Petrolatum (Eucerin Cream) 0 gm TOP BIDPRN PRN PRN Reason: Dry Skin Morphine Sulfate (Morphine) 2 mg SLOW IVP Q4H PRN PRN Reason: Pain Last Admin: 10/14/17 03:48 Dose: 2 mg Nystatin (Mycostatin Powder) 0 gm TOP TIDPRN PRN PRN Reason: .redness Ondansetron HCl (Zofran Odt) 4 mg PO Q6H PRN PRN Reason: Nausea/Vomiting Last Admin: 10/14/17 09:55 Dose: 4 mg Ondansetron HCl (Zofran) 4 mg IVP Q6H PRN PRN Reason: Nausea/Vomiting Pantoprazole Sodium (Protonix) 40 mg IVP DAILY [facility] Last Admin: 10/14/17 09:50 Dose: 40 mg Phenol (Chloraseptic [place] 180 Ml Bot) 0 ml PO PRN PRN PRN Reason: Sore Throat Promethazine HCl (Phenergan) 12.5 mg IM/IV Q6H PRN PRN Reason: Nausea/Vomiting Last Admin: 10/10/17 07:57 Dose: 12.5 mg Senna (Senokot) 2 tab PO HSPRN PRN PRN Reason: Constipation Sodium Chloride ([place] Nasal [place] 0.65%) 0 ml EA NARE QIDPRN PRN PRN Reason: Nasal Congestion Sodium Chloride (Flush - Normal Saline) 10 ml IVF Q12HR [facility] Last Admin: 10/14/17 09:50 Dose: 10 ml Sodium Chloride (Flush - Normal Saline) 10 ml IVF PRN PRN PRN Reason: Saline Flush Zolpidem Tartrate (Ambien) 5 mg PO HSPRN PRN PRN Reason: Insomnia Last Admin: 10/13/17 20:10 Dose: 5 mg
[2017-10-14 15:22] LABS: Bacteria/HPF Rare-Few HPF (None Seen); Hyaline Casts/LPF 4-6 HYALINE CAST LPF (0-3 Hyaline); Pathc Cast-AUWi Flag 1.16 (0-2.49); RBC/HPF 0-3 HPF (0-3)
[2017-10-14 15:33] LABS: Osmolality, Urine 232 mOsm/kg (300-900)
[2017-10-14 15:40] LABS: Transitional Epithelial 0-3 HPF (0-3)
[2017-10-14 15:41] LABS: Sodium, Urine Less than 20 mmol/L (Not Available)
[2017-10-14 15:54] LABS: Anion Gap 11 mmol/L (10-20); BUN (Urea Nitrogen) 6 mg/dL (9.8-20.1); Calc. Creatinine Clearance 72 mL/min (70-130); Carbon Dioxide 24 mmol/L (22-29); Chloride 92 mmol/L (98-107); Estimated GFR-MDRD 68; Glucose 96 mg/dL (70-105); Magnesium 1.5 mg/dL (1.6-2.6); Potassium 4.1 mmol/L (3.5-5.1); Sodium 123 mmol/L (136-145)
[2017-10-14] MEDS: Lorazepam 1 MG TAB PO PRN (16:35)
[2017-10-14 19:56] LABS: Anion Gap 12 mmol/L (10-20); BUN (Urea Nitrogen) 6 mg/dL (9.8-20.1); Calc. Creatinine Clearance 73 mL/min (70-130); Calcium 7.9 mg/dL (7.8-10.44); Carbon Dioxide 26 mmol/L (22-29); Chloride 92 mmol/L (98-107); Estimated GFR-MDRD 69; Glucose 96 mg/dL (70-105); Magnesium 1.9 mg/dL (1.6-2.6); Sodium 126 mmol/L (136-145)
[2017-10-14] MEDS: Apixaban 5 MG TAB PO SCH (20:00)
[2017-10-14] MEDS: Zolpidem Tartrate 5 MG TAB PO PRN (20:47)
[2017-10-15] MEDS: HYDROcodone/Acetaminophen 5/325 mg Tablet PO PRN ×2 (02:21→15:02)
[2017-10-15] MEDS: Lorazepam 1 MG TAB PO PRN (02:22)
[2017-10-15 05:41] LABS: INR-International Normal Ratio 1.7; Prothrombin Time 20.5 SEC (12.0-14.7)
[2017-10-15 05:43] LABS: Hemoglobin 11.9 g/dL (12.0-16.0)
[2017-10-15 05:57] LABS: Anion Gap 14 mmol/L (10-20); BUN (Urea Nitrogen) 7 mg/dL (9.8-20.1); Calc. Creatinine Clearance 74 mL/min (70-130); Carbon Dioxide 22 mmol/L (22-29); Chloride 92 mmol/L (98-107); Estimated GFR-MDRD 70; Glucose 90 mg/dL (70-105); Magnesium 1.8 mg/dL (1.6-2.6); Potassium 4.6 mmol/L (3.5-5.1); Sodium 123 mmol/L (136-145)
[2017-10-15] MEDS: Folic Acid 1 MG TAB PO SCH (08:26)
[2017-10-15] MEDS: Pantoprazole 40 MG VIAL IVP SCH (08:26)
[2017-10-15] MEDS: Apixaban 5 MG TAB PO SCH ×2 (08:26→20:38)
[2017-10-15] MEDS ORDERED: Tolvaptan 15 MG TAB PO SCH (08:30)
--- NOTE | 2017-10-15 10:05 | PRG ---
DATE OF SERVICE: 10/15/2017 SUBJECTIVE: This is a 62-year-old female being seen for hyponatremia. Patient denies any nausea, vo miting or chest pain. PHYSICAL EXAMINATION: GENERAL: Patient is awake and alert. VITAL SIGNS: Afebrile, pulse 74, breathing at 16, blood pressure 120/80. GENERAL APPEARANCE AND MENTAL STATUS: Fair. HEAD/NECK: Normocephalic, atraumatic. EYES: EOMI. No deformity. EARS: Clear. No ulcers. NOSE: Intact. No lesions. MOUTH: Clear. No discharge. THROAT: Clear. No exudate. LUNGS: Clear. No crackles. CARDIAC: S1, S2. No rub. ABDOMEN: Benign. BS+. GENITALIA/RECTUM: Lopes absent. BACK/EXTREMITIES: Lower extremities have edema. Ulcer-. NEUROLOGICAL: Alert and motor intact. SKIN: Rash- Bruise- LYMPHATICS: Edema- Ulcer-. LABORATORY DATA: Show creatinine was 0.83, sodium 123. ASSESSMENT AND RECOMMENDATIONS: 1. 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 W e will start the patient on [place] 15 mg 1 dose and recheck sodium in the afternoon. 2. Hypomagnesemia, improved. 3. Hypertension, stable. 4. Medications based on glomerular filtration rate are appropriate. 5. Peritoneal carcinomatosis. Management per primary team. Overall, prognosis is extremely poor.
[2017-10-15 10:18] LABS: Anion Gap 15 mmol/L (10-20); BUN (Urea Nitrogen) 7 mg/dL (9.8-20.1); Calc. Creatinine Clearance 70 mL/min (70-130); Calcium 8.1 mg/dL (7.8-10.44); Carbon Dioxide 22 mmol/L (22-29); Chloride 91 mmol/L (98-107); Estimated GFR-MDRD 66; Glucose 85 mg/dL (70-105); Potassium 4.3 mmol/L (3.5-5.1); Sodium 124 mmol/L (136-145)
--- NOTE | 2017-10-15 14:14 | PDOC.PN ---
- Subjective Encounter Start Date: 10/15/17 Encounter Start Time: 14:13 Subjective: feels hungry.still having abd pain .no nausea/vomiting/diaarhea - Objective Resuscitation Status: Resuscitation Status FULL:Full Resuscitation MAR Reviewed: Yes Vital Signs & Weight: Vital Signs (12 hours) Temp Pulse Resp BP Pulse Ox 10/15/17 08:00 98.4 F 104 H 18 120/88 96 Weight Admit Weight 143 lb 3.2 oz Weight 143 lb 3.2 oz I&O: 10/14/17 10/15/17 10/16/17 06:59 06:59 06:59 Intake Total 502 1050 Balance 502 1050 Result Diagrams: 10/15/17 04:48 10/15/17 09:25 Additional Labs: Microbiology 10/08/17 09:50 Peritoneal Fluid Culture Body Fluid Culture - Final 10/07/17 17:15 Venous blood - Left Arm Blood Culture - Final NO GROWTH IN 5 DAYS 10/07/17 17:10 Venous blood - Right Arm Blood Culture - Final NO GROWTH IN 5 DAYS 10/14/17 14:15 Urine voided Urine Culture - Preliminary labs reviewed Phys Exam - Physical Examination Constitutional: NAD HEENT: PERRLA, moist MMs, sclera anicteric, oral pharynx no lesions Neck: no nodes, no JVD, supple, full ROM Respiratory: no wheezing, no rales, no rhonchi, clear to auscultation bilateral Cardiovascular: RRR, no significant murmur Gastrointestinal: soft, non-tender, no distention, positive bowel sounds Musculoskeletal: no edema, pulses present Neurological: non-focal, normal sensation, moves all 4 limbs Psychiatric: normal affect, A&O x 3 Skin: no rash Dx/Plan (1) Hyponatremia Code(s): E87.1 - HYPO-OSMOLALITY AND HYPONATREMIA Status: Acute Comment: ab SIADH (2) Bilateral pulmonary embolism Code(s): I26.99 - OTHER PULMONARY EMBOLISM WITHOUT ACUTE COR PULMONALE Status : Acute Comment: restarted on eliquis post colonoscopy 10/14/17 (3) Ascites, malignant Code(s): R18.0 - MALIGNANT ASCITES Status: Acute Comment: s/p Paracentesis with pathology consistant with adenocarcinoma (4) Abdominal pain Code(s): R10.9 - UNSPECIFIED ABDOMINAL PAIN Status: Acute Qualifiers: Abdominal location: generalized Qualified Code(s): R10.84 - Generalized abdominal pain Comment: due to colon cancer (5) Adenocarcinoma Code(s): C80.1 - MALIGNANT (PRIMARY) NEOPLASM, UNSPECIFIED Status: Acute Comment: Unknown primary.S/P Colonoscopy 10/12/17.path pending (6) Peritoneal carcinomatosis Code(s): C78.6 - SECONDARY MALIGNANT NEOPLASM OF RETROPERITON AND PERITONEUM; C80.1 - MALIGNANT (PRIMARY) NEOPLASM, UNSPECIFIED Status: Acute (7) Pulmonary nodules/lesions, multiple Status: Acute (8) GERD (gastroesophageal reflux disease) Code(s): K21.9 - GASTRO-ESOPHAGEAL REFLUX DISEASE WITHOUT ESOPHAGITIS Status: Chronic (9) Hypertension Code(s): I10 - ESSENTIAL (PRIMARY) HYPERTENSION Status: Chronic (10) Colon cancer Code(s): C18.9 - MALIGNANT NEOPLASM OF COLON, UNSPECIFIED Status: Chronic - Plan PT/OT, out of bed/ambulate, DVT proph w/SCDs sodium still low. give Tolvapatan w fluid restriction.appreciate nephrology -: H/h stable on eliquis .monitor. -: start low dose Zoloft for apparent depression.PCT input appreciated -: hemodynamically stable.DC home w family support when Na better -: supportive care * . Review of Systems - Review of Systems Constitutional: weakness, malaise. negative: fever, chills, sweats, other ENT: negative: Ear Pain, Ear Discharge, Nose Pain, Nose Discharge, Nose Congestion, Mouth Pain, Mouth Swelling, Throat Pain, Throat Swelling, Other Respiratory: negative: Cough, Dry, Shortness of Breath, Hemoptysis, SOB with Excertion, Pleuritic Pain, Sputum, Wheezing Cardiovascular: negative: chest pain, palpitations, orthopnea, paroxysmal nocturnal dyspnea, edema, light headedness, other Gastrointestinal: Abdominal Pain. negative: Nausea, Vomiting, Diarrhea, Constipation, Melena, Hematochezia, Other Genitourinary: negative: Dysuria, Frequency, Incontinence, Hematuria, Retention , Other Musculoskeletal: negative: Neck Pain, Shoulder Pain, Arm Pain, Back Pain, Hand Pain, Leg Pain, Foot Pain, Other Neurological: negative: Weakness, Numbness, Incoordination, Change in Speech, Confusion, Seizures, Other - Medications/Allergies Allergies/Adverse Reactions: Allergies Allergy/AdvReac Type Severity Reaction Status Date / Time No Known Drug Allergies Allergy Verified 10/07/17 21:57 Medications: Current Medications Acetaminophen (Tylenol) 650 mg PO Q4H PRN PRN Reason: Headache/Fever or Pain Last Admin: 10/10/17 00:44 Dose: 650 mg Hydrocodone Bitart/Acetaminophen ([place] 5/325) 1 tab PO Q4H PRN PRN Reason: Moderate Pain (4-6) Last Admin: 10/15/17 02:21 Dose: 1 tab Al Hydroxide/Mg Hydroxide (Maalox) 30 ml PO Q6H PRN PRN Reason: Heartburn or Indigestion Last Admin: 10/14/17 13:53 Dose: 30 ml Apixaban (Eliquis) 5 mg PO BID [facility] Last Admin: 10/15/17 08:26 Dose: 5 mg Artificial Tears (Tears Naturale) 0 drop EA EYE PRN PRN PRN Reason: Dry Eyes Bisacodyl (Dulcolax) 10 mg [place] Q24H PRN PRN Reason: Constipation Diazepam (Valium) 5 mg PO Q24H PRN PRN Reason: Anxiety Last Admin: 10/11/17 20:03 Dose: 5 mg Folic Acid (Folvite) 1 mg PO DAILY [facility] Last Admin: 10/15/17 08:26 Dose: 1 mg Guaifenesin (Robitussin Sf) 200 mg PO Q4H PRN PRN Reason: Cough Hydralazine HCl (Apresoline) 10 mg SLOW IVP Q4H PRN PRN Reason: Systolic BP > 180 Promethazine HCl 12.5 mg/ (Sodium Chloride) 50.5 mls @ 202 mls/hr IVPB Q6H PRN PRN Reason: Nausea Last Admin: 10/09/17 21:15 Dose: 50.5 mls Loperamide HCl (Imodium) 2 mg PO PRN PRN PRN Reason: Diarrhea/Loose Stools Loratadine (Claritin) 10 mg PO DAILYPRN PRN PRN Reason: Sinus Symptoms Lorazepam (Ativan) 1 mg PO Q4H PRN PRN Reason: Anxiety/Agitation Last Admin: 10/15/17 02:22 Dose: 1 mg Magnesium Hydroxide (Milk Of Magnesium) 30 ml PO DAILYPRN PRN PRN Reason: Constipation Mineral Oil/White Petrolatum (Eucerin Cream) 0 gm TOP BIDPRN PRN PRN Reason: Dry Skin Morphine Sulfate (Morphine) 2 mg SLOW IVP Q4H PRN PRN Reason: Pain Last Admin: 10/14/17 20:47 Dose: 2 mg Nystatin (Mycostatin Powder) 0 gm TOP TIDPRN PRN PRN Reason: .redness Ondansetron HCl (Zofran Odt) 4 mg PO Q6H PRN PRN Reason: Nausea/Vomiting Last Admin: 10/14/17 20:47 Dose: 4 mg Ondansetron HCl (Zofran) 4 mg IVP Q6H PRN PRN Reason: Nausea/Vomiting Pantoprazole Sodium (Protonix) 40 mg IVP DAILY [facility] Last Admin: 10/15/17 08:26 Dose: 40 mg Phenol (Chloraseptic [place] 180 Ml Bot) 0 ml PO PRN PRN PRN Reason: Sore Throat Promethazine HCl (Phenergan) 12.5 mg IM/IV Q6H PRN PRN Reason: Nausea/Vomiting Last Admin: 10/10/17 07:57 Dose: 12.5 mg Senna (Senokot) 2 tab PO HSPRN PRN PRN Reason: Constipation Sertraline HCl (Zoloft) 25 mg PO DAILY [facility] Sodium Chloride ([place] Nasal [place] 0.65%) 0 ml EA NARE QIDPRN PRN PRN Reason: Nasal Congestion Sodium Chloride (Flush - Normal Saline) 10 ml IVF Q12HR [facility] Last Admin: 10/15/17 08:26 Dose: 10 ml Sodium Chloride (Flush - Normal Saline) 10 ml IVF PRN PRN PRN Reason: Saline Flush Zolpidem Tartrate (Ambien) 5 mg PO HSPRN PRN PRN Reason: Insomnia Last Admin: 10/14/17 20:47 Dose: 5 mg
[2017-10-15 16:33] LABS: Sodium 126 mmol/L (136-145)
[2017-10-15 20:04] LABS: Sodium 127 mmol/L (136-145)
[2017-10-15] MEDS: Zolpidem Tartrate 5 MG TAB PO PRN (20:38)
[2017-10-16 05:46] LABS: INR-International Normal Ratio 2.3; Prothrombin Time 25.2 SEC (12.0-14.7)
[2017-10-16 06:00] LABS: Anion Gap 13 mmol/L (10-20); BUN (Urea Nitrogen) 8 mg/dL (9.8-20.1); Calc. Creatinine Clearance 72 mL/min (70-130); Calcium 8.1 mg/dL (7.8-10.44); Carbon Dioxide 23 mmol/L (22-29); Chloride 96 mmol/L (98-107); Estimated GFR-MDRD 68; Glucose 101 mg/dL (70-105); Potassium 4.6 mmol/L (3.5-5.1); Sodium 127 mmol/L (136-145)
[2017-10-16] MEDS: Pantoprazole 40 MG VIAL IVP SCH (08:08)
[2017-10-16] MEDS: Apixaban 5 MG TAB PO SCH ×2 (08:08→20:46)
[2017-10-16] MEDS: Folic Acid 1 MG TAB PO SCH (08:08)
[2017-10-16 09:28] LABS: Hemoglobin 11.3 g/dL (12.0-16.0)
[2017-10-16] MEDS ORDERED: Tolvaptan 15 MG TAB PO SCH (11:45)
--- NOTE | 2017-10-16 13:20 | PRG ---
DATE OF SERVICE: 10/16/2017 SUBJECTIVE: This is a 62-year-old female being seen for hyponatremia. The patient denies any nausea, vomiting or chest pain. PHYSICAL EXAMINATION: GENERAL: Patient is awake, alert. VITAL SIGNS: Afebrile, pulse 75, breathing 16, blood pressure 119/81. OBJECTIVE: See above. Awake, alert, in no acute distress. GENERAL APPEARANCE AND MENTAL STATUS: Fair. HEAD/NECK: Normocephalic. Atraumatic. EYES: EOMI. No deformity. EARS: Clear. No ulcers. NOSE: Intact. No lesions. MOUTH: Clear. No discharge. THROAT: Clear. No exudate. LUNGS: Clear. No crackles. CARDIAC: S1, S2. No rub. ABDOMEN: Benign. BS+. GENITALIA/RECTUM: Lopes absent. BACK/EXTREMITIES: Edema 0+ Ulcer- NEUROLOGICAL: Alert and motor intact. SKIN: Rash- Bruise- LYMPHATICS: Edema- Ulcer- LABORATORY: Sodium 127. ASSESSMENT AND RECOMMENDATIONS: 1. Hyponatremia, improved. The patient wants to change providers. I will consult with Dr. Kim . 2. Hypertension, stable. 3. Medications based on glomerular filtration rate are appropriate. I will sign off this patient. 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
[2017-10-16] MEDS ORDERED: ALPRAZolam 0.25 MG TAB PO PRN (13:24)
--- NOTE | 2017-10-16 13:28 | PDOC.PN ---
- Subjective Encounter Start Date: 10/16/17 Encounter Start Time: 13:26 Subjective: does not feel good. feels nauseated.not eating much.poor appetite -: feels overwhelmed and upset.no pain -: c/o leg swelling - Objective Resuscitation Status: Resuscitation Status FULL:Full Resuscitation MAR Reviewed: Yes Vital Signs & Weight: Vital Signs (12 hours) Temp Pulse Resp BP Pulse Ox 10/16/17 08:00 98.6 F 114 H 18 147/109 H 95 Weight Admit Weight 143 lb 3.2 oz Weight 143 lb 3.2 oz I&O: 10/15/17 10/16/17 10/17/17 06:59 06:59 06:59 Intake Total 1050 780 Balance 1050 780 Result Diagrams: 10/16/17 04:18 10/16/17 04:21 Additional Labs: Microbiology 10/14/17 14:15 Urine voided Urine Culture - Final 10/08/17 09:50 Peritoneal Fluid Culture Body Fluid Culture - Final 10/07/17 17:15 Venous blood - Left Arm Blood Culture - Final NO GROWTH IN 5 DAYS 10/07/17 17:10 Venous blood - Right Arm Blood Culture - Final NO GROWTH IN 5 DAYS 10/14/17 14:15 Urine voided Urine Culture - Preliminary labs reviewed Phys Exam - Physical Examination Constitutional: NAD HEENT: PERRLA, moist MMs, sclera anicteric, oral pharynx no lesions Neck: no nodes, no JVD, supple, full ROM Respiratory: no wheezing, no rales, no rhonchi, clear to auscultation bilateral Cardiovascular: RRR, no significant murmur, no rub Gastrointestinal: soft, non-tender, no distention, positive bowel sounds Musculoskeletal: no edema, pulses present Neurological: non-focal, normal sensation, moves all 4 limbs Psychiatric: A&O x 3 Deviation from normal: tearful Skin: no rash Dx/Plan (1) Hyponatremia Code(s): E87.1 - HYPO-OSMOLALITY AND HYPONATREMIA Status: Acute Comment: ab SIADH (2) Bilateral pulmonary embolism Code(s): I26.99 - OTHER PULMONARY EMBOLISM WITHOUT ACUTE COR PULMONALE Status : Acute Comment: restarted on eliquis post colonoscopy 10/14/17 (3) Ascites, malignant Code(s): R18.0 - MALIGNANT ASCITES Status: Acute Comment: s/p Paracentesis with pathology consistant with adenocarcinoma (4) Abdominal pain Code(s): R10.9 - UNSPECIFIED ABDOMINAL PAIN Status: Acute Qualifiers: Abdominal location: generalized Qualified Code(s): R10.84 - Generalized abdominal pain Comment: due to colon cancer (5) Adenocarcinoma Code(s): C80.1 - MALIGNANT (PRIMARY) NEOPLASM, UNSPECIFIED Status: Acute Comment: Unknown primary.S/P Colonoscopy 10/12/17.path pending (6) Peritoneal carcinomatosis Code(s): C78.6 - SECONDARY MALIGNANT NEOPLASM OF RETROPERITON AND PERITONEUM; C80.1 - MALIGNANT (PRIMARY) NEOPLASM, UNSPECIFIED Status: Acute (7) Pulmonary nodules/lesions, multiple Status: Acute (8) GERD (gastroesophageal reflux disease) Code(s): K21.9 - GASTRO-ESOPHAGEAL REFLUX DISEASE WITHOUT ESOPHAGITIS Status: Chronic (9) Hypertension Code(s): I10 - ESSENTIAL (PRIMARY) HYPERTENSION Status: Chronic (10) Colon cancer Code(s): C18.9 - MALIGNANT NEOPLASM OF COLON, UNSPECIFIED Status: Chronic - Plan PT/OT, out of bed/ambulate, DVT proph w/SCDs H/H stable.cont Eliquis foro PE.no bleeding -: pt refusing Zoloft.Anti-depressants "make her crazy".will stop. -: add prn Xanax.PCT following, -: sodium improving.give one more dose Tolvaptan.recheck in am -: DC home in am if sodium better.OP f/u w Oncology * . Review of Systems - Review of Systems Constitutional: weakness, malaise. negative: fever, chills, sweats, other Respiratory: negative: Cough, Dry, Shortness of Breath, Hemoptysis, SOB with Excertion, Pleuritic Pain, Sputum, Wheezing Cardiovascular: negative: chest pain, palpitations, orthopnea, paroxysmal nocturnal dyspnea, edema, light headedness, other Gastrointestinal: Nausea. negative: Vomiting, Abdominal Pain, Diarrhea, Constipation, Melena, Hematochezia, Other Genitourinary: negative: Dysuria, Frequency, Incontinence, Hematuria, Retention , Other Musculoskeletal: negative: Neck Pain, Shoulder Pain, Arm Pain, Back Pain, Hand Pain, Leg Pain, Foot Pain, Other Skin: negative: Rash, Lesions, Kelvin, Bruising, Other Neurological: negative: Weakness, Numbness, Incoordination, Change in Speech, Confusion, Seizures, Other - Medications/Allergies Allergies/Adverse Reactions: Allergies Allergy/AdvReac Type Severity Reaction Status Date / Time No Known Drug Allergies Allergy Verified 10/07/17 21:57 Medications: Current Medications Acetaminophen (Tylenol) 650 mg PO Q4H PRN PRN Reason: Headache/Fever or Pain Last Admin: 10/10/17 00:44 Dose: 650 mg Hydrocodone Bitart/Acetaminophen ([place] 5/325) 1 tab PO Q4H PRN PRN Reason: Moderate Pain (4-6) Last Admin: 10/15/17 15:02 Dose: 1 tab Al Hydroxide/Mg Hydroxide (Maalox) 30 ml PO Q6H PRN PRN Reason: Heartburn or Indigestion Last Admin: 10/14/17 13:53 Dose: 30 ml Alprazolam (Xanax) 0.25 mg PO BIDPRN PRN PRN Reason: Anxiety Apixaban (Eliquis) 5 mg PO BID [facility] Last Admin: 10/16/17 08:08 Dose: 5 mg Artificial Tears (Tears Naturale) 0 drop EA EYE PRN PRN PRN Reason: Dry Eyes Bisacodyl (Dulcolax) 10 mg ND Q24H PRN PRN Reason: Constipation Diazepam (Valium) 5 mg PO Q24H PRN PRN Reason: Anxiety Last Admin: 10/11/17 20:03 Dose: 5 mg Folic Acid (Folvite) 1 mg PO DAILY [facility] Last Admin: 10/16/17 08:08 Dose: 1 mg Guaifenesin (Robitussin Sf) 200 mg PO Q4H PRN PRN Reason: Cough Hydralazine HCl (Apresoline) 10 mg SLOW IVP Q4H PRN PRN Reason: Systolic BP > 180 Promethazine HCl 12.5 mg/ (Sodium Chloride) 50.5 mls @ 202 mls/hr IVPB Q6H PRN PRN Reason: Nausea Last Admin: 10/09/17 21:15 Dose: 50.5 mls Loperamide HCl (Imodium) 2 mg PO PRN PRN PRN Reason: Diarrhea/Loose Stools Loratadine (Claritin) 10 mg PO DAILYPRN PRN PRN Reason: Sinus Symptoms Lorazepam (Ativan) 1 mg PO Q4H PRN PRN Reason: Anxiety/Agitation Last Admin: 10/15/17 02:22 Dose: 1 mg Magnesium Hydroxide (Milk Of Magnesium) 30 ml PO DAILYPRN PRN PRN Reason: Constipation Mineral Oil/White Petrolatum (Eucerin Cream) 0 gm TOP BIDPRN PRN PRN Reason: Dry Skin Morphine Sulfate (Morphine) 2 mg SLOW IVP Q4H PRN PRN Reason: Pain Last Admin: 10/14/17 20:47 Dose: 2 mg Nystatin (Mycostatin Powder) 0 gm TOP TIDPRN PRN PRN Reason: .redness Ondansetron HCl (Zofran Odt) 4 mg PO Q6H PRN PRN Reason: Nausea/Vomiting Last Admin: 10/14/17 20:47 Dose: 4 mg Ondansetron HCl (Zofran) 4 mg IVP Q6H PRN PRN Reason: Nausea/Vomiting Pantoprazole Sodium (Protonix) 40 mg PO DAILY [facility] Phenol (Chloraseptic [place] 180 Ml Bot) 0 ml PO PRN PRN PRN Reason: Sore Throat Promethazine HCl (Phenergan) 12.5 mg IM/IV Q6H PRN PRN Reason: Nausea/Vomiting Last Admin: 10/10/17 07:57 Dose: 12.5 mg Senna (Senokot) 2 tab PO HSPRN PRN PRN Reason: Constipation Sodium Chloride ([place] Nasal [place] 0.65%) 0 ml EA NARE QIDPRN PRN PRN Reason: Nasal Congestion Sodium Chloride (Flush - Normal Saline) 10 ml IVF Q12HR ALEK Last Admin: 10/16/17 08:09 Dose: 10 ml Sodium Chloride (Flush - Normal Saline) 10 ml IVF PRN PRN PRN Reason: Saline Flush Zolpidem Tartrate (Ambien) 5 mg PO HSPRN PRN PRN Reason: Insomnia Last Admin: 10/15/17 20:38 Dose: 5 mg
[2017-10-16] MEDS: HYDROcodone/Acetaminophen 5/325 mg Tablet PO PRN (14:59)
[2017-10-16] MEDS ORDERED: Furosemide 40 MG/4 ML VIAL SLOW IVP SCH (16:15)
[2017-10-16] MEDS: Ondansetron ODT 4 MG TAB PO PRN (20:46)
[2017-10-16] MEDS: Zolpidem Tartrate 5 MG TAB PO PRN (22:51)
--- NOTE | 2017-10-17 00:22 | CON ---
DATE OF CONSULTATION: 10/16/2017 CONSULTING PHYSICIAN: Areli Kim M.D. REQUESTING PHYSICIAN: Dr. Hernandez and Dr. Ovalles. REASON FOR CONSULTATION: Hyponatremia and the need for another physician to take over the management of the hyponatremia. IMPRESSION: 1. Hyponatremia. This is likely hypoosmolar, hypervolemic hyponatremia, compounded by poor po osmolar intake. Going by urine chemistry, this is unlikely to be syndrome of inappropriate antidiuretic hormone secretion. 2. We will increase the protein intake in this patient by increasing the meat portion and the patient to be on regular diet. The patient has been encouraged to eat more. 3. We will administer a loop diuretic on a p.r.n. basis for this patient. 4. We will discontinue fluid restriction. 5. Further management will be dependent on the clinical course. Tolvaptan will be discontinued. HISTORY OF PRESENT ILLNESS: History is that of a 62-year-old female patient with multiple suspicious metastatic lesions of unknown source, who presented here with sodium of 130; however, over the course of hospitalization, sodium has drifted down to 126. Patient has been on fluid restriction as well as tolvaptan medication with little or no change in the sodium level. The need for another care provider necessitated this consultation. The patient has not been eating very well and complained of bilateral lower extremity swelling. Patient not very ambulatory therefore, could not assess the history of shortness of breath on exertion. Clinically, investigation so far showed urine osmolarity of 232 with urine sodium of less than 20. Serum osmolality was low also. PAST MEDICAL HISTORY: Significant for, 1. Hypertension. 2. Status post hysterectomy. 3. Status post tonsillectomy. 4. Also, does have history of anxiety and depression. SOCIAL HISTORY: Remote tobacco, remote substance abuse, quit tobacco use 3 months ago. FAMILY HISTORY: None significantly related to presenting illness. ALLERGIES: No known drug allergy. CURRENT MEDICATIONS: Reviewed and as documented on [employer]. REVIEW OF SYSTEMS: As documented in the body of the history. All the other systems were reviewed and found not to be significantly related to presenting illness. PHYSICAL EXAMINATION: GENERAL: The patient was found not to be in any obvious distress, noted with the following vital signs. VITAL SIGNS: Afebrile with temperature 98.6, pulse 114, respiratory rate 18, blood pressure 138/96-147/109. HEENT EXAMINATION: Unremarkable with moist oral mucosa. NECK: Supple. No conjunctival injection or icterus. CARDIOVASCULAR SYSTEM: First and second heart sounds were heard. RESPIRATORY SYSTEM: Clear to auscultation. DIGESTIVE SYSTEM: Revealed a benign abdomen with positive bowel sounds. EXTREMITIES: Showed bilateral 2+ lower extremity edema. LYMPHATICS: No peripheral lymphadenopathy. SUMMARY: A 62-year-old female patient with hyponatremia, who is currently tachycardic. Thank you for this consultation. We will follow with you. The patient likely to benefit from reinstitution of a beta mer. MTDD
[2017-10-17 04:44] LABS: Hemoglobin 11.7 g/dL (12.0-16.0)
[2017-10-17 05:02] LABS: Anion Gap 14 mmol/L (10-20); BUN (Urea Nitrogen) 10 mg/dL (9.8-20.1); Calc. Creatinine Clearance 57 mL/min (70-130); Calcium 8.7 mg/dL (7.8-10.44); Carbon Dioxide 29 mmol/L (22-29); Chloride 94 mmol/L (98-107); Estimated GFR-MDRD 52; Glucose 100 mg/dL (70-105); Potassium 4.5 mmol/L (3.5-5.1); Sodium 132 mmol/L (136-145)
[2017-10-17] MEDS: HYDROcodone/Acetaminophen 5/325 mg Tablet PO PRN (05:10)
[2017-10-17] MEDS ORDERED: Carvedilol 6.25 MG TAB PO SCH (08:00)
[2017-10-17] MEDS: Apixaban 5 MG TAB PO SCH (08:43)
[2017-10-17] MEDS: Folic Acid 1 MG TAB PO SCH (08:46)
[2017-10-17 12:01] VITALS: BP 112/78; TEMP 98.7
--- NOTE | 2017-10-18 01:04 | DIS ---
DATE OF ADMISSION: 10/07/2017 DATE OF DISCHARGE: 10/17/2017 CONDITION AT THE TIME OF DISCHARGE: Stable and improved. DISCHARGE DISPOSITION: Home with family. DISCHARGE DIAGNOSES: 1. Mass, likely colon cancer, pathology pending. 2. Hyponatremia, likely at high ADH. 3. Bilateral pulmonary embolism started on chronic anticoagulation. 4. Malignant ascites, status post paracentesis with pathology consistent with adenocarcinoma. 5. Abdominal pain secondary to colonic malignancy and ascites. 6. Peritoneal carcinomatosis. 7. Multiple pulmonary lesions of unknown significance. 8. Gastroesophageal reflux disease. 9. Hypertension. DISCHARGE MEDICATIONS: Eliquis 10 mg p.o. b.i.d., Zofran 4 mg as needed, Protonix 40 mg as needed, t ramadol 50 mg every 4 hours p.r.n., Tylenol with codeine 1 to 2 tabs p.o. q.6 hours p.r.n., folic aci d 1 mg daily, lisinopril 10 mg daily. Discontinue Protonix 40 mg daily. INHOUSE CONSULTATIONS: 1. Gastroenterology, Dr. Bear. 2. Nephrology, Dr. Kim and Dr. Ovalles. 3. Oncology, Dr. Wagner and Ms. Rayne Shea [employer]. PROCEDURES DONE IN THE HOSPITAL: 1. CT scan of the abdomen and pelvis upon presentation, which are markedly abnormal appearance of th e peritoneal lining with mass-like soft tissue thickening throughout the abdomen and pelvis, mainly i n the upper abdomen associated with ascites. This was concerning with peritoneal carcinomatosis. Th ere were also multiple pulmonary nodules seen in the CT scan. 2. Paracentesis. 3. Ultrasound guided paracentesis removing 2 liters of kory-colored fluid, which was positive for a denocarcinoma. 4. CT scan of the chest, which showed multiple smaller pulmonary nodules and bilateral pulmonary thr omboembolism. 5. Lower extremity ultrasound, which is negative for any DVT. 6. Transthoracic echocardiogram, which showed EF of 60% to 65% without any significant valvular abno rmalities. 7. EGD and colonoscopy. EGD showed high-grade esophageal stricture at 35-cm pause incisor, which wa s amenable with gentle pressure with the gastroscope status post multiple biopsies and mild diffuse e rythema in the gastric cardia, fundus, and body and a 2-cm hiatal hernia. Colonoscopy showed retaine d stool. She did have a large polypoid mass, which was biopsied. A large circumferential fungating and ulcerative mass was also seen, which was also biopsied. Internal hemorrhoids were seen. 8. CT scan of the brain on 10/14/2017, which after she has sustained a fall, which is negative for a ny hemorrhage. HISTORY OF PRESENTING ILLNESS: Ms. Paul is a 62-year-old female with past medical history of only hypertension, who presented to the emergency room with complaints of her abdominal pain. The patient underwent a CT scan of the abdomen and pelvis in the emergency room with the above-mentioned finding s. This was concerning for peritoneal carcinomatosis. She was admitted for further evaluation and c are. She was hemodynamically stable. She was admitted to medical floor and Oncology was consulted. She was ordered a paracentesis for the ascites seen in the CT scan. Please see admission history an d physical for further details. HOSPITAL COURSE: The patient underwent paracentesis and pathology was consistent with adenocarcinoma . Oncology saw the patient and requested further evaluation with a colonoscopy, so Gastroenterology was consulted. She underwent EGD and colonoscopy with the above-mentioned results. Colonoscopy did show an ulcerating mass, which was biopsied and the biopsies were pending at the time of discharge. She also underwent a CT scan of the chest for staging purposes, which actually showed bilateral pulmo nary embolism. She also had multiple small pulmonary lesions of unclear significance. It is not kaci ar if these are the primary for the peritoneal carcinomatosis. Oncology will follow this patient in the outpatient setting for the same. Her paracentesis fluid was negative for any infection. Urine c ulture and blood cultures were also done, which was also negative. The patient had multiple days stay undergoing various procedures as above to get full diagnosis. By the time of discharge, she developed hyponatremia. Nephrology was consulted. This was thought secon [place] to SIADH. This was treated with fluid restriction and eventually tolvaptan. Her sodium has imp roved to 132 this morning. Palliative care team was also consulted and they have followed the patient along. Patient was given option for home health, but at this time she declined any antidepressant medications as well. She wa s started on Eliquis for her PE, which was briefly held when she underwent colonoscopy, but it was la ter restarted and patient tolerated it very well without any drop in her H&H. Eventually when her sodium improved, she was discharged home in a stable condition. Discharge plan was discussed with her [id number] who is present in the room and the patient is goi ng to stay with her. She was seen and examined prior to discharge. PHYSICAL EXAMINATION: This morning, VITAL SIGNS: Temperature 98.7, pulse of 78, respirations 20, saturating 94% on room air, blood press ure 112/78. GENERAL: No acute distress, awake, alert, oriented x3. CHEST: Clear to auscultation without any wheezing, rales, or rhonchi. HEART: Rate and rhythm is regular. The patient has severe depression and was not very compliant wit h medical treatment while she was here. Once again, she has declined offer to be started on antidepr essants and for the Palliative Care Team to follow her as an outpatient. She is instructed to follow up with Oncology for further care and if she needs any stronger pain medications. Total time spent 35 minutes. Case was discussed with Nephrology prior to discharge, who has cleared her for discharge at this time.
--- NOTE | 2017-10-18 08:19 | PRG ---
DATE OF SERVICE: 10/17/2017 SUBJECTIVE: The patient was seen and examined and in much better spirits today, feeling good. Noted with the following vital signs. OBJECTIVE: VITAL SIGNS: Afebrile with temperature 98.7, pulse 78, respiratory rate of 20, O2 sat of 94% with a blood pressure of 100/78. HEENT: Unremarkable with moist oral mucosa. No conjunctival injection or icterus. NECK: Supple. CARDIOVASCULAR SYSTEM: First and second heart sounds were heard. RESPIRATORY SYSTEM: Clear to auscultation. DIGESTIVE SYSTEM: Revealed a benign abdomen with positive bowel sounds. EXTREMITIES: No peripheral edema. LABORATORY DATA: Laboratory investigation showed sodium 132. The patient did undergo diuretic very well . IMPRESSION: Hyponatremia in the context of hypervolemic hyponatremia, responded very well to loop di uretic. PLAN: 1. We will continue with loop diuretic on p.r.n. basis as an outpatient. 2. From the renal standpoint, the patient is good for discharge. 3. Further management to be dependent on the clinical course.
== END 2017-10-17 12:29 | disposition home or self-care (01) | DRG 374 ==
LOC: SCSER 16:20 → T4-A 18:50
PROVIDERS: ADMIT Internal Medicine; ATTEND Internal Medicine
PROC: 0W9G3ZZ Drainage of Peritoneal Cavity, Percutaneous Approach (ICD-10-PCS; 2017-10-08)
PROC: 0DB58ZX Excision of Esophagus, Via Natural or Artificial Opening Endoscopic, Diagnostic (ICD-10-PCS; principal; 2017-10-12)
PROC: 0DB68ZX Excision of Stomach, Via Natural or Artificial Opening Endoscopic, Diagnostic (ICD-10-PCS; 2017-10-12)
PROC: 0DBM8ZX Excision of Descending Colon, Via Natural or Artificial Opening Endoscopic, Diagnostic (ICD-10-PCS; 2017-10-12)
PROC: 0DBL8ZX Excision of Transverse Colon, Via Natural or Artificial Opening Endoscopic, Diagnostic (ICD-10-PCS; 2017-10-12)
DX: C18.9 Malignant neoplasm of colon, unspecified (principal); I26.99 Other pulmonary embolism without acute cor pulmonale; E87.1 Hypo-osmolality and hyponatremia; R18.0 Malignant ascites; C78.6 Secondary malignant neoplasm of retroperitoneum and peritoneum; K21.9 Gastro-esophageal reflux disease without esophagitis; I10 Essential (primary) hypertension; R91.8 Other nonspecific abnormal finding of lung field; K22.2 Esophageal obstruction; F41.9 Anxiety disorder, unspecified; F32.9 Major depressive disorder, single episode, unspecified; E83.42 Hypomagnesemia; K44.9 Diaphragmatic hernia without obstruction or gangrene; K64.8 Other hemorrhoids; E87.8 Other disorders of electrolyte and fluid balance, not elsewhere classified; E86.0 Dehydration; Z87.891 Personal history of nicotine dependence
CPT/HCPCS: 36415; 36416; 49083; 70450; 71260; 74177; 80048; 80053; 80074; 81003; 81015; 82140; 82378; 82553; 82565; 82945; 83605; 83615; 83690; 83735; 83880; 83930; 83935; 84157; 84300; 84443; 84484; 85014; 85018; 85025; 85049; 85060; 85379; 85610; 85730; 86304; 87040; 87070; 87086; 87205; 88112; 88305; 88312; 88313; 88341; 88342; 89051; 93005; 93306; 93970; 96365; 96375; 96376; J2270; A4216; C9113; J1650; J1940; J2001; J2405; J2543; J2550; J2704; J3475; J7050; Q0162

== ENCOUNTER 2017-10-25 07:02 | Day surgery (SDC) | payer MEDICARE, MEDICAID ==
[2017-10-24 17:21] VITALS: BMI 27.6
[2017-10-25] MEDS ORDERED: Lidocaine 1% MPF 2 ML VIAL ONE (08:03)
[2017-10-25] MEDS ORDERED: Sodium Bicarbonate 2.5 MEQ/5 ML VIAL ONE (08:03)
[2017-10-25] MEDS ORDERED: Lidocaine 1% PF 5 ML VIAL ONE ×2 (08:04→14:11)
[2017-10-25] MEDS ORDERED: CEFAZOLIN/Water 2 GM/20 ML SYRINGE ONE (09:26)
[2017-10-25] MEDS ORDERED: Fentanyl 100 MCG/2 ML VIAL ONE (09:42)
[2017-10-25] MEDS ORDERED: Propofol 500 MG/50 ML VIAL ONE (09:42)
[2017-10-25] MEDS ORDERED: Bupivacaine HCl 0.25%/Epi 0.0005/PF 10 ML VIAL FS ONE (10:02)
[2017-10-25] MEDS ORDERED: Lidocaine 2% 10 ML INJ ONE (10:02)
[2017-10-25] MEDS ORDERED: Midazolam HCl 2 mg/2 ml Vial ONE (10:13)
--- NOTE | 2017-10-25 12:05 | RAD ---
FRONTAL RADIOGRAPH CHEST: DATE: 10/25/17. COMPARISON: None. HISTORY: MediPort placement. FINDINGS: There is a left-sided MediPort, distal tip overlying the region of the SVC. No pneumothorax is noted . There is asymmetric increased density in the right hilar region, which correlates with a mass lesion seen within the superior segment of the right lower lobe on 10/08/17 CT examination. There is small-v olume pleural effusion on the left. No pneumothorax is seen. IMPRESSION: Nodular mass-like opacity in right perihilar region, correlating with masses within the right lower l obe on recent CT examination. Findings are suspicious for neoplasia. No pneumothorax is seen. Ther e is a small left pleural effusion. POS: [facility]
[2017-10-25] MEDS ORDERED: PHENYLEPHRINE-NS 100 MCG/ML 10 ML SYRINGE ONE (14:11)
[2017-10-25] MEDS ORDERED: Ondansetron HCl/PF 4 MG/2 ML Vial ONE (14:11)
--- NOTE | 2017-11-01 19:29 | PDOC.OP ---
Operative Note - Operative Note Operative Note: PROCEDURE: Left subclavian MediPort placement with fluoroscopic guidance SURGEON: Jam Quintana M.D. DATE OF PROCEDURE: 10/25/2017 PREOPERATIVE DIAGNOSIS: Need for chemotherapy access POSTOPERATIVE DIAGNOSIS: Need for chemotherapy access HISTORY: Patient is diagnosed with metastatic colon cancer. Chemotherapy has been recommended and the oncologist has requested MediPort placement for this. OPERATIVE PROCEDURE IN DETAIL: After informed consent was obtained and appropriate preoperative antibiotics were administered, the patient was taken to the operating room and placed in supine position and monitored anesthesia care was administered. The patient was then placed in Trendelenburg position and the subclavian vein accessed easily on the first attempt with excellent flow of dark venous non-pulsatile blood. A wire threaded easily and was confirmed to be in the superior vena cava by fluoroscopy. Additional local anesthesia was infused to the skin and subcutaneous tissues lateral and inferior to the access site. The skin incision was extended from the wire laterally and a subcutaneous pocket developed inferiorly. A Mediport was obtained and confirmed to fit in the subcutaneous pocket. This was secured inferiorly to the pectoralis fascia with a Prolene suture, which was clamped, but not tied. The dilator and sheath were then placed over the wire and the dilator and wire removed leaving the sheath in place. The clamped MediPort tubing was tunneled through the sheath, which was then split and removed leaving the MediPort tubing in place. The tubing was adjusted until the tip was confirmed by fluoroscopy to be in the superior vena cava just above the atrium. The tubing was clamped at the skin level and cut and the tubing secured to the port, which was then placed in the subcutaneous pocket. The previously placed suture was secured and two additional sutures were placed to fix the port in place within the pocket. The port was aspirated with the Jain needle and had excellent flow of dark venous non-pulsatile blood and easily flushed without resistance. The subcutaneous tissues were closed with a running Monocryl suture, following which the skin was closed with a running subcuticular Monocryl suture. Dermabond dressings were placed and the hub was again accessed through the skin and confirmed to easily aspirate and easily flush. The course of the catheter was confirmed by fluoroscopy to be smooth with the tip appropriately located in the superior vena cava. The patient was taken her back to the day stay unit in good condition. Estimated blood loss was minimal. There were no complications. There were no specimens.
== END 2017-10-25 12:05 | disposition home or self-care (01) ==
LOC: SDC 07:02
PROVIDERS: ATTEND Surgery
PROC: 0JH60WZ Insertion of Totally Implantable Vascular Access Device into Chest Subcutaneous Tissue and Fascia, Open Approach (ICD-10-PCS; principal; 2017-10-25)
PROC: 02HV33Z Insertion of Infusion Device into Superior Vena Cava, Percutaneous Approach (ICD-10-PCS; 2017-10-25)
PROC: B518YZA Fluoroscopy of Superior Vena Cava using Other Contrast, Guidance (ICD-10-PCS; 2017-10-25)
DX: C18.6 Malignant neoplasm of descending colon (principal); C78.00 Secondary malignant neoplasm of unspecified lung; I26.99 Other pulmonary embolism without acute cor pulmonale; K22.2 Esophageal obstruction; I10 Essential (primary) hypertension; F41.9 Anxiety disorder, unspecified; F32.9 Major depressive disorder, single episode, unspecified; F17.210 Nicotine dependence, cigarettes, uncomplicated; Z79.01 Long term (current) use of anticoagulants; Z79.899 Other long term (current) drug therapy
CPT/HCPCS: 36561; 71045; C1788; J1642; J2001; J2250; J2405; J2704; J3010

== ENCOUNTER → 2017-10-25 | Day surgery (SDC) | payer MEDICARE, MEDICAID ==
[2017-10-24 08:24] VITALS: BMI 27.8
--- NOTE | 2017-10-25 10:08 | ULT ---
ULTRASOUND GUIDED PARACENTESIS: CLINICAL INDICATION: Ascites. PROCEDURE: After informed consent had been obtained, the patient was escorted to the ultrasound suite and placed in a supine position. The abdomen was imaged which revealed adequate ascites for the procedure. Th e skin of the abdomen was then prepped and draped in the standard sterile fashion and the skin surfac e, subcutaneous tissues, and peritoneal lining of the abdomen were anesthetized with 1% Lidocaine buf fered with sodium bicarbonate. A left lower quadrant approach was selected. A small skin incision w as made at the site of topical anesthesia. Subsequently, under real-time ultrasound guidance a [employer] catheter was advanced through the incision site into the peritoneal cavity. Ascites was present at t he catheter hub. The catheter was then secured to vacuum sealed sterile containers, via sterile tubi ng and subsequently 2 L of clear, yellow ascites was drained from the patient. The catheter was then removed from the patient. The patient tolerated the procedure well without evidence of complication . Postprocedure imaging revealed no complication and interval reduction in volume of ascites. The p atient was monitored by a radiology nurse and was stable in condition. IMPRESSION: Technically successful ultrasound-guided paracentesis, as above. POS: [facility]
[2017-10-25 11:46] VITALS: TEMP 99.4
[2017-10-25 11:49] VITALS: BP 125/70
== END ==
LOC: ULT 16:13
PROVIDERS: ATTEND Internal Medicine Medical Oncology
PROC: 0W9G3ZZ Drainage of Peritoneal Cavity, Percutaneous Approach (ICD-10-PCS; principal; 2017-10-25)
DX: C48.2 Malignant neoplasm of peritoneum, unspecified (principal); C78.00 Secondary malignant neoplasm of unspecified lung; R18.0 Malignant ascites; C18.6 Malignant neoplasm of descending colon; I26.99 Other pulmonary embolism without acute cor pulmonale; K22.2 Esophageal obstruction; I10 Essential (primary) hypertension; F41.9 Anxiety disorder, unspecified; F32.9 Major depressive disorder, single episode, unspecified; F17.210 Nicotine dependence, cigarettes, uncomplicated; Z79.01 Long term (current) use of anticoagulants
CPT/HCPCS: 49083

== ENCOUNTER 2017-10-31 10:59 | Inpatient (IN) | payer MEDICARE, MEDICAID ==
[2017-10-31] MEDS ORDERED: Ondansetron HCl/PF 4 MG/2 ML Vial ONE (12:11)
[2017-10-31 12:16] LABS: #Basophils 0.1 thou/uL (0.0-0.2); #Lymphocytes 2.1 thou/uL (1.20-3.40); #Monocytes 1.2 thou/uL (0.11-0.59); #Neutrophils 11.5 thou/uL (1.40-6.50); %Eosinophils 0.3 % (0.0-10.0); %Lymphocytes 13.9 % (21.0-51.0); %Monocytes 8.1 % (0.0-10.0); %Neutrophils 76.7 % (42.0-75.0); Hemoglobin 9.2 g/dL (12.0-16.0); Mean Corpuscular HGB CONC 33.9 g/dL (32.0-36.0); Mean Corpuscular Hemoglobin 28.6 pg (27.0-31.0); Mean Corpuscular Volume 84.3 fL (78.0-98.0); Mean Platelet Volume 7.7 fL (7.4-10.4); Platelet Count 444 thou/uL (130-400); RBC Distribution Width 14.5 % (11.5-14.5); Red Blood Cell (RBC) Count 3.21 mill/uL (4.20-5.40)
[2017-10-31 12:24] LABS: ALT (SGPT) 17 U/L (8-55); AST (SGOT) 15 U/L (5-34); Albumin 1.9 g/dL (3.5-5.0); Alkaline Phosphatase 92 U/L (40-150); Anion Gap 16 mmol/L (10-20); BUN (Urea Nitrogen) 25 mg/dL (9.8-20.1); Bilirubin, Total 0.4 mg/dL (0.2-1.2); Calc. Creatinine Clearance 0 mL/min (70-130); Calcium 7.8 mg/dL (7.8-10.44); Carbon Dioxide 23 mmol/L (22-29); Chloride 95 mmol/L (98-107); Estimated GFR-MDRD 29; Glucose 84 mg/dL (70-105); Potassium 3.6 mmol/L (3.5-5.1); Protein, Total 4.9 g/dL (6.0-8.3); Sodium 130 mmol/L (136-145)
[2017-10-31] MEDS ORDERED: Norepinephrine 4 MG/4 ML VIAL ONE ×2 (12:48→12:54)
[2017-10-31 12:51] LABS: Bilirubin Small (Negative); Blood, Urine Negative (Negative); Glucose, Urine (Dipstick) Negative (Negative); Leukocyte Negative (Negative); Nitrite Negative (Negative); Protein, Urine (Dipstick) Trace mg/dL (Neg-Trace); Urobilinogen 0.2 mg/dL (0.2-1.0)
[2017-10-31 12:55] LABS: Clarity Slightly Cloudy (Clear)
[2017-10-31 12:56] LABS: Specific Gravity, Urine 1.026 (1.002-1.036)
[2017-10-31 13:03] LABS: CKMB 0.5 ng/mL (0-6.6); Troponin I Less than 0.010 ng/mL (< 0.028)
[2017-10-31] MEDS ORDERED: Piperacillin/Tazobactam 4.5 GM VIAL ONE (13:10)
[2017-10-31] MEDS ORDERED: Sodium Chloride 0.9% 100 ML ONE (13:11)
--- NOTE | 2017-10-31 14:36 | RAD ---
AP VIEW OF THE CHEST: INDICATION: Status post central line placement. COMPARISON: Prior exam dated 10/25/17. IMPRESSION: There is an IV canula seen within the right neck base. A left chest wall port is unchanged. Small b ilateral pleural effusions are present. Cardiomegaly with pulmonary vascular congestion is present. Prominent infrahilar nodules seen in the region of the right lower lobe are stable. IMPRESSION: 1. No pneumothorax demonstrated. 2. Findings of mild congestive heart failure. 3. Right lower lobe pulmonary nodules are stable. 4. Left chest wall port is stable. 5. IV canula seen within the right neck base. POS: [facility]
--- NOTE | 2017-10-31 14:40 | CT ---
CT CERVICAL SPINE WITHOUT COTNRAST: INDICATION: A 62-year-old female with a history of fall and neck pain. History of metastatic colon cancer and is currently on Eliquis for pulmonary embolus. FINDINGS: There is some reversal of the normal cervical lordosis likely related to positioning. There is very slight anterior translation of C3 and Cr which is likely related to facet degenerative change. No ac jerrell fracture or subluxation is evident. Osseous central canal appears relatively well preserved. Th e craniocervical junction appears within normal limits. There are small bilateral pleural effusions. There is mild scattered emphysema. There is a left stephon st wall port in place. There is a small IV canula seen within the right external jugular vein. IMPRESSION: 1. No acute fracture or subluxation is demonstrated. 2. Moderate spondylosis of the cervical spine. 3. Bilateral pleural effusions. POS: [facility]
--- NOTE | 2017-10-31 14:48 | CT ---
CT BRAIN WITHOUT CONTRAST: HISTORY: Trauma. Weakness. COMPARISON: CT brain 10/14/17. FINDINGS: On the axial image 8 is a focal hyperdensity round of the right brainstem measuring approximately 6 m m. It is unsure if this is a real finding or artifactual. It was not seen on the prior examination. No acute hemorrhage or infarct. No midline shift or mass effect. The calvarium is intact. Paranasal sinuses and mastoids are clear. IMPRESSION: 1. Along the right brainstem is a 5 mm hyperdense focus which may reflect metastatic disease versus more likely artifactual. A followup nonemergent MRI with and without contrast may be beneficial. 2. No acute posttraumatic intracranial sequelae. POS: [facility]
[2017-10-31] MEDS ORDERED: Acetaminophen 500 MG TAB ONE (15:26)
[2017-10-31] MEDS ORDERED: Norepinephrine 8 MG/0.9% NS 250 ML ONE (16:11)
[2017-10-31] MEDS ORDERED: Norepinephrine 8 MG/250 ML BAG IVPB PRN (16:20)
[2017-10-31] MEDS ORDERED: Sodium Chloride 0.9% 1,000 ML IV SCH (16:30)
[2017-10-31 16:34] VITALS: BMI 24.8
[2017-10-31] MEDS ORDERED: Morphine 4 MG/ML VIAL ONE (16:58)
[2017-10-31] MEDS: Sodium Chloride 0.9% 1,000 ML IV SCH ×2 (17:24→20:32)
[2017-10-31] MEDS: Albumin 25% 25 GM/100 ML BOT IVPB SCH (17:24)
[2017-10-31] MEDS ORDERED: Calcium Carbonate 500 MG ChewTAB PO PRN (19:04)
[2017-10-31] MEDS ORDERED: Norepinephrine 8 MG/0.9% NS 250 ML IVPB PRN (19:04)
[2017-10-31] MEDS ORDERED: Acetaminophen 650 MG/20.3 ML UDCUP PO PRN (19:04)
[2017-10-31] MEDS ORDERED: Mag-Al 1200 mg/1200 mg/30 ML UDCUP PO PRN (19:04)
[2017-10-31] MEDS ORDERED: Acetaminophen 650 MG Suppository PR PRN (19:04)
[2017-10-31] MEDS ORDERED: Acetaminophen 325 MG TAB PO PRN (19:04)
[2017-10-31] MEDS ORDERED: Lacri-Lube Opth Oint 3.5 GM TUBE EA EYE PRN (19:04)
[2017-10-31] MEDS ORDERED: Polyethylene Glycol 3350 17 GM Packet PO PRN (19:16)
[2017-10-31] MEDS ORDERED: Hydrocerin (Eucerin) Cream 120 gm Jar TOP PRN (19:16)
--- NOTE | 2017-10-31 20:28 | CON ---
DATE OF CONSULTATION: 10/31/2017 HISTORY OF PRESENT ILLNESS: Ms. Paul is a very unfortunate 62-year-old female with peritoneal carcinomatosis, felt to be of colon primary. She has nodules in her lungs as well. She apparently fell last night and had a terrible night she says she did not really remember much of this morning she says. She presented to the [facility] with the low blood pressure. She has received 2 liters of fluid and is on Levophed after central line placement. Her only complaint is abdominal discomfort. PHYSICAL EXAMINATION: VITAL SIGNS: She is currently with the blood pressure in the high 80s. Her pulse is in the 80s, respiratory rates in the low 20s. GENERAL: She is extremely cachectic appearing and pale. HEENT: Her Pupils are equal. Sclerae anicteric. NECK: Supple. LUNGS: Clear. HEART: Regular rhythm. ABDOMEN: Remarkable for diffusely abnormal exam consistent with ascites and what feels like diffuse abdominal masses or peritoneal thickening. EXTREMITIES: With edema. NEUROLOGIC: Grossly nonfocal. LABORATORY DATA: White count is 15, hemoglobin 9.2, platelets 444. Sodium 130 , potassium 3.6, chloride 95, bicarbonate 23, BUN 25, creatinine 1.76. Reviewing records, she apparently had a paracentesis done 6 days ago. Two liters of fluid was removed. IMPRESSION: Peritoneal carcinomatosis with intravascular volume depletion. I suspect with her anorexia she is not eating and drinking enough and is now third spaced significant amount of vascular volume into her peritoneal cavity. PLAIN: Given her clinical condition, I am not sure she will tolerate treatment. She was scheduled to see the oncologist today to start therapy according to their office. We will continue hydration, empiric antibiotics and pressor support for now. Critical care time 30 minutes. MTDD
[2017-10-31] MEDS: Cefepime 2 GM in Sodium Chloride 0.9% 100 ML IVPB SCH (20:31)
[2017-10-31] MEDS: Famotidine 20 MG TAB PO SCH (20:32)
[2017-10-31] MEDS: Hydrocortisone Sod Succ/PF 100 mg/2 ml Vial IVP SCH (20:32)
[2017-10-31] MEDS ORDERED: Acetaminophen/Codeine 30-300mg Tablet PO PRN (20:53)
[2017-10-31] MEDS ORDERED: Apixaban 5 MG TAB PO SCH (21:00)
[2017-10-31] MEDS ORDERED: Vancomycin HCl 1 GM in Premix Bag 1 BAG IVPB SCH (21:00)
--- NOTE | 2017-10-31 21:32 | HP ---
DATE OF ADMISSION: 10/31/2017 PRIMARY CARE PHYSICIAN: Virgil Kidd M.D. CHIEF COMPLAINT: Generalized weakness. HISTORY OF PRESENT ILLNESS: Patient is a 62-year-old female with recently diagnosed metastatic adeno carcinoma, presented to the emergency room at [facility] with above complaints. She was dischar ged from this facility 2 weeks ago. She was also diagnosed with bilateral pulmonary embolism and was started on Eliquis. She required paracentesis for ascites. Over the past few days, patient has been feeling generally weak and tired. She fell 2-3 times per pa tient report. She is unsure if she hit her head. She had some burning in the urination along with c hills. She denies any loss of appetite. No new skin rash, cough, shortness of breath, wheezing, or altered mentation reported. In the emergency room, her initial vital signs showed temperature 97.9, respirations 19, pulse rate o f 93 with a blood pressure of 72/46 with O2 saturation 100% on room air. She was started on Levophed . She received vancomycin, Zosyn, and Levaquin in the emergency room. Her chest x-ray showed some f luid overload without definite infiltrate. PAST MEDICAL HISTORY: 1. Recently diagnosed mucinous adenocarcinoma. 2. Bilateral pulmonary embolism, on anticoagulation. 3. Malignant ascites status post paracentesis. 4. Pulmonary nodules. 5. Gastroesophageal reflux disease. 6. Hypertension. 7. Anxiety depression. PAST SURGICAL HISTORY: 1. Recent MediPort placement. 2. Colonoscopy. 3. Paracentesis. 4. Hysterectomy. 5. Tonsillectomy. ALLERGIES: No known drug allergies. CURRENT HOME MEDICATIONS: Patient takes Eliquis 5 mg twice a day, carvedilol 12.5 mg b.i.d., lisinop ril 10 mg daily, Protonix 40 mg daily, Tylenol #3 as needed. SOCIAL HISTORY: Patient currently lives at home. She is a former drug abuser. She quit smoking 3 m onths ago. No alcohol use. FAMILY HISTORY: Negative for heart disease or malignancy. REVIEW OF SYSTEMS: The following complete review of systems was negative, unless otherwise mentioned in the HPI or below: Constitutional: Weight loss or gain, ability to conduct usual activities. Sk in: Rash, itching. Eyes: Double vision, pain. ENT/Mouth: Nose bleeding, neck stiffness, pain, te nderness. Cardiovascular: Palpitations, dyspnea on exertion, orthopnea. Respiratory: Shortness of breath, wheezing, cough, hemoptysis, fever or night sweats. Gastrointestinal: Poor appetite, abdom inal pain, heartburn, nausea, vomiting, constipation, or diarrhea. Genitourinary: Urgency, frequenc y, dysuria, nocturia. Musculoskeletal: Pain, swelling. Neurologic/Psychiatric: Anxiety, depressio n. Allergy/Immunologic: Skin rash, bleeding tendency. PHYSICAL EXAMINATION: VITAL SIGNS: As discussed above. She is currently on Levophed. HEENT: Head atraumatic, normocephalic. Sclerae are anicteric. Dry mucous membranes. No oral lesio n. NECK: Supple, no JVD, no carotid bruit. LUNGS: Showed scattered rales at bases. No rhonchi or wheezing. HEART: S1, S2 present. Regular rate and rhythm. No rubs or gallops appreciated. ABDOMEN: Distended and tense. No guarding, rigidity. No tenderness. Bowel sounds are present. EXTREMITIES: A 3+ edema in bilateral lower extremities. No calf tenderness. SKIN: Warm and dry. LYMPH NODES: No palpable lymph nodes in the neck. PERIPHERAL VASCULAR: Radial pulses palpable bilaterally. MUSCULOSKELETAL: No joint swelling or tenderness. LABORATORY FINDINGS: CBC showed WBC 15 with hemoglobin 9.2, hematocrit 27, platelet 444. Chemistrie s showed sodium 130, potassium 3.6, chloride 95, bicarbonate 23, BUN 25, creatinine 1.76, albumin 1.9 . Lactic acid was normal. Urinalysis was negative for WBC, bacteria. IMAGING: Chest x-ray by my review as discussed above. CT of the brain showed 5 mm hyperdense focus which may reflect metastatic disease versus artifact. CT of the cervical spine showed moderate spond ylosis of cervical spine. IMPRESSION: 1. Severe sepsis with acute organ dysfunction/septic shock, source is unclear. 2. 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 3. Ascites with paracentesis, last admission. 4. Severe protein-calorie malnutrition. 5. Acute kidney injury, on chronic kidney disease stage 2. 6. Hyponatremia. 7. Acute on chronic anemia with hemoglobin 9.2 this admission. 8. History of hypertension. 9. Pulmonary nodules. 10. Gastroesophageal reflux disease. 11. Questionable brain mets. 12. Anxiety and depression. PLAN: Patient will be monitored in the Intensive Care Unit. We will continue IV fluid at 200 mL an hour. Patient has already been seen by Critical Care. Stress dose steroids has been started. Empir ic antibiotics will be continued. We will monitor vancomycin level. She is currently on albumin q.6 hourly. We will recheck labs in a.m. Continue Levophed. Due to anemia, we will hold Eliquis for n ow. H&H 2 weeks ago at discharge was 11.7. This admission is 9.2. Last hemoglobin was 8.0. We perla l type and screen 2 units. Blood cultures have been sent from the ER. Plan of care was discussed with the patient in detail. She stated understanding.
[2017-10-31] MEDS ORDERED: Hydrocortisone Sod Succ/PF 100 mg/2 ml Vial IVP SCH (22:00)
[2017-11-01] MEDS: Norepinephrine 8 MG/250 ML BAG IVPB PRN ×2 (00:40→05:36)
[2017-11-01] MEDS: Albumin 25% 25 GM/100 ML BOT IVPB SCH ×4 (00:40→18:16)
[2017-11-01] MEDS: Sodium Chloride 0.9% 1,000 ML IV SCH ×3 (00:41→11:27)
[2017-11-01] MEDS: Hydrocortisone Sod Succ/PF 100 mg/2 ml Vial IVP SCH ×3 (03:33→20:52)
[2017-11-01 05:03] LABS: Hemoglobin 8.3 g/dL (12.0-16.0); Mean Corpuscular HGB CONC 31.6 g/dL (32.0-36.0); Mean Corpuscular Hemoglobin 29.4 pg (27.0-31.0); Mean Corpuscular Volume 93.2 fL (78.0-98.0); Mean Platelet Volume 7.7 fL (7.4-10.4); Platelet Count 486 thou/uL (130-400); RBC Distribution Width 15.3 % (11.5-14.5); White Blood Cell (WBC) Count 12.9 thou/uL (4.8-10.8)
[2017-11-01 05:10] LABS: ALT (SGPT) 12 U/L (8-55); AST (SGOT) 14 U/L (5-34); Albumin 2.7 g/dL (3.5-5.0); Alkaline Phosphatase 74 U/L (40-150); Anion Gap 14 mmol/L (10-20); BUN (Urea Nitrogen) 20 mg/dL (9.8-20.1); Bilirubin, Total 0.6 mg/dL (0.2-1.2); Calc. Creatinine Clearance 45 mL/min (70-130); Calcium 7.2 mg/dL (7.8-10.44); Carbon Dioxide 20 mmol/L (22-29); Chloride 103 mmol/L (98-107); Estimated GFR-MDRD 42; Glucose 102 mg/dL (70-105); Potassium 3.6 mmol/L (3.5-5.1); Protein, Total 4.7 g/dL (6.0-8.3); Sodium 133 mmol/L (136-145)
[2017-11-01 05:32] LABS: Band 9 % (5-11); Lymphocytes 9 % (21-51); MDiff Complete? YES; Monocytes 2 % (0-10); Neutrophil 80 % (42-75)
[2017-11-01] MEDS ORDERED: Prevnar 13-Val Conj/PF 0.5 ML SYRINGE IM ONE (09:00)
--- NOTE | 2017-11-01 09:01 | RAD ---
AP VIEW OF THE CHEST: INDICATION: History of CCU patient on ventilation. COMPARISON: Prior exam dated 10/31/17. FINDINGS: The left subclavian chest wall port is stable. Right lower lobe pulmonary nodules are similar. The r emaining chronic lung changes are stable. Heart size is within normal limits. Vascular calcificatio ns are seen involving the thoracic aorta. No pleural effusion or pneumothorax is evident. Osseous s tructures are similar-appearing. IMPRESSION: 1. Some improvement in the pulmonary vascular congestion seen from the comparison examination. Hear t size now appears within normal limits. There are tiny bilateral pleural effusions, slightly less p rominent than seen on the comparison examination. 2. Right lower lobe pulmonary nodules are stable. 3. Left chest wall port is stable. POS: [facility]
[2017-11-01] MEDS: Cefepime 2 GM in Sodium Chloride 0.9% 100 ML IVPB SCH ×2 (09:07→20:52)
[2017-11-01 13:42] LABS: Vancomycin, Random 3.1 ug/mL (See Comment)
[2017-11-01] MEDS ORDERED: Vancomycin HCl 1 GM in Premix Bag 1 BAG IVPB SCH (14:00)
[2017-11-01] MEDS ORDERED: Vancomycin HCl 1.25 GM in Sodium Chloride 0.9% 250 ML 250 ML IVPB SCH (15:00)
--- NOTE | 2017-11-01 19:46 | CON ---
DATE OF CONSULTATION: 11/01/2017 REASON FOR CONSULTATION: Peritoneal carcinomatosis. HISTORY OF PRESENT ILLNESS: Ms. Paul is a 62-year-old female who was diagnosed in late with peritoneal carcinomatosis. Cytology showed cells consistent with adenocarcinoma. She under went upper GI endoscopy showing medium to high-grade esophageal stricture. Colonoscopy showed a roslyn villatoro polypoid mass 5-6 cm in size at 60 cm past the anal verge. Histology showed tubulovillous adenoma with areas of high-grade dysplasia. She also had a large circumferential fungating and ulcerated mas s approximately 40 cm from the anal verge. This showed mucinous adenocarcinoma. She had a CT scan o f her chest at the last admission and was diagnosed with bilateral pulmonary embolism. She had pulmo nary masses suspicious for metastatic disease. The patient was discharged home with her family as omer villatoro has limited mobility and requires assistance with ADLs. She uses a walker for ambulation. She saw Dr. Armas in the early October and was to start FOLFOX regimen with Avastin. She has had 2 paracente ses for ascites related to peritoneal carcinomatosis. Two days ago, she fell and yesterday presented to the [facility] for evaluation. She was hypotensive, given fluid resuscitation and starte d on Levophed. She also received empiric antibiotics. She was transferred to this facility and admi tted to the ICU. She has been able to be weaned off of the vasopressors. The patient denies any annetta n. She does complain of generalized swelling. She has a poor appetite with weight loss, she is depr essed, but declines any medication. PAST MEDICAL HISTORY: 1. 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 2. Pulmonary emboli. 3. Esophageal stricture. 4. Hypertension. 5. Anxiety and depression. PAST SURGICAL HISTORY: 1. Hysterectomy. 2. Tonsillectomy. 3. MediPort placement. 4. Multiple paracentesis. ALLERGIES: No known drug allergies. HOME MEDICATIONS: 1. Tylenol #3 p.r.n. 2. Eliquis 5 mg b.i.d. 3. Coreg 12.5 mg b.i.d. 4. Lisinopril 10 mg daily. 5. Protonix 40 mg daily. FAMILY HISTORY: Her mother had liver cancer. SOCIAL HISTORY: She is , has 2 children, lives with her sister and one brother pack, a day s moker for 32 years. Social drinker. REVIEW OF SYSTEMS: Twelve point review of systems is negative except for noted in HPI. PHYSICAL EXAMINATION: VITAL SIGNS: Temperature is 98.5, pulse is 96, respiratory rate 18, BP is 94/57, she is 97% on 2 lit ers. GENERAL: Frail female in no acute distress. HEENT: Normocephalic, atraumatic. Pupils are equal and reactive to light. She got poor dentition. NECK: Supple. CARDIOVASCULAR: Regular rate and rhythm. She is tachycardic. LUNGS: Clear to auscultation. ABDOMEN: Distended and firm, nontender. Bowel sounds are positive. EXTREMITIES: She has got 2+ bilateral lower extremity swelling. SKIN: No rash. HEMATOLOGIC: No petechia or purpura. NEUROLOGIC: Nonfocal. PSYCHIATRIC: The patient is alert and oriented and appropriate. PERTINENT LABORATORY DATA AND IMAGING DATA: Current WBCs are 12.9, hemoglobin 8.3, hematocrit 26.1, platelet count 486,000, neutrophils are 80, 9% lymphocytes. Sodium is 133, potassium 3.6, chloride 1 03, CO2 is 20, BUN is 20, creatinine 1.29, lactic acid is 1.4, calcium 7.2, total bilirubin is 0.6, A ST is 14, ALT is 12, alkaline phosphatase is 74. Troponin is negative. Serum total protein 4.7, alb umin 2.7, globulin 2.0. Urine is negative for bacteria. IMPRESSION: 1. Stage IV adenocarcinoma. 2. Hypotension secondary to volume depletion. 3. Recent diagnosis of PE. DISCUSSION: The patient's Eliquis has been held for anemia. Recommend she resume once she has stabi lized. We will consult palliative care team for assistance with code status and goals of care. Othe rwise, we will provide supportive care. Thank you for the consult.
[2017-11-01] MEDS: Famotidine 20 MG TAB PO SCH (20:52)
--- NOTE | 2017-11-01 22:25 | PDOC.PN ---
- Subjective Encounter Start Date: 11/01/17 Encounter Start Time: 17:00 Patient seen and examined for hypotension. Off pressors. No new complaints. No overnight events - Objective Resuscitation Status: Resuscitation Status FULL:Full Resuscitation MAR Reviewed: Yes Vital Signs & Weight: Vital Signs (12 hours) Temp 11/01/17 15:00 97.9 F 11/01/17 11:00 98.5 F Weight Weight 152 lb 8.958 oz Most Recent Monitor Data Heart Rate from ECG 104 NIBP 106/67 NIBP BP-Mean 89 Respiration from ECG 18 SpO2 78 I&O: 10/31/17 11/01/17 11/02/17 06:59 06:59 06:59 Intake Total 3330 3091 Output Total 755 440 Balance 2575 2651 Result Diagrams: 11/02/17 03:43 11/02/17 03:43 EKG Reviewed by me: Yes (Tele SR) Phys Exam - Physical Examination Constitutional: NAD Respiratory: no wheezing, no rhonchi Cardiovascular: RRR, no rub Gastrointestinal: soft, non-tender, positive bowel sounds Neurological: moves all 4 limbs Dx/Plan - Plan DVT proph w/SCDs IMPRESSION: 1. Severe sepsis with acute organ dysfunction/septic shock - Cultures negative 2. 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 3. Ascites s/p paracentesis (last admission) 4. Severe protein-calorie malnutrition. 5. Acute kidney injury, on chronic kidney disease stage 2. improving 6. Hyponatremia. 7. Acute on chronic anemia with hemoglobin 9.2 this admission. Eliquis on hold due to Anemia 8. History of hypertension. 9. Pulmonary nodules. 10. Gastroesophageal reflux disease. 11. ?Brain mets. 12. Anxiety and depression. PLAN: Cont Atbx IVF dced Monitor HH Eliquis on hold Type and screen Transfuse if Hb <7 Crtical care following Cont current meds as below Review of Systems - Review of Systems Cardiovascular: negative: chest pain, palpitations, orthopnea, paroxysmal nocturnal dyspnea, edema, light headedness, other Gastrointestinal: negative: Nausea, Vomiting, Abdominal Pain, Diarrhea, Constipation, Melena, Hematochezia, Other - Medications/Allergies Allergies/Adverse Reactions: Allergies Allergy/AdvReac Type Severity Reaction Status Date / Time No Known Drug Allergies Allergy Verified 10/31/17 17:19 Medications: Current Medications Acetaminophen (Tylenol Elixir) 650 mg PO Q6H PRN PRN Reason: Fever > 101 or Mild Pain Acetaminophen (Tylenol) 650 mg SD Q6H PRN PRN Reason: Fever > 101 or Mild Pain Acetaminophen (Tylenol) 650 mg PO Q4H PRN PRN Reason: Headache/Fever or Pain Acetaminophen/Codeine Phosphate (Tylenol #3) 1 tab PO Q6H PRN PRN Reason: Pain 4-6 Al Hydroxide/Mg Hydroxide (Maalox) 30 ml PO Q6H PRN PRN Reason: Heartburn or Indigestion Albumin Human (Albumin 25%) 25 gm IVPB Q6HR [facility] Stop: 11/02/17 18:01 Last Admin: 11/01/17 18:16 Dose: 25 gm Albuterol/Ipratropium (Duoneb) 3 ml NEB Q6H PRN PRN Reason: SOB &/or Wheezing Calcium Carbonate (Tums) 1,000 mg PO Q4H PRN PRN Reason: Heartburn or Indigestion Emollient Cream (Hydrocerin Cream) 0 gm TOP BIDPRN PRN PRN Reason: Dry Skin Famotidine (Pepcid) 20 mg PO Q24HR [facility] Last Admin: 11/01/17 20:52 Dose: 20 mg Hydrocortisone Sodium Succinate (Solu-Cortef) 100 mg IVP Q8H [facility] Last Admin: 11/01/17 20:52 Dose: 100 mg Norepinephrine Bitartrate (Levophed) 250 mls @ 0 mls/hr IVPB INF PRN; Protocol ; Titrate PRN Reason: TITRATE TO KEEP SBP >80 Last Admin: 11/01/17 05:36 Dose: 250 mls Cefepime HCl 2 gm/ Sodium (Chloride) 100 mls @ 200 mls/hr IVPB 0800,2000 [facility] Last Admin: 11/01/17 20:52 Dose: 100 mls Norepinephrine Bitartrate (Levophed) 250 mls @ 0 mls/hr IVPB PRN PRN; Protocol ; Titrate PRN Reason: To maintain MAP > 65 Vancomycin HCl 1.25 gm/ Sodium (Chloride) 250 mls @ 166.667 mls/hr IVPB 1500 [facility] Last Admin: 11/01/17 14:41 Dose: 250 mls Lactulose (Lactulose) 20 gm PO DAILYPRN PRN PRN Reason: Constipation Mineral Oil/White Petrolatum (Lacri-Lube Ointment) 0 gm EA EYE PRN PRN PRN Reason: Dry Eyes Miscellaneous Medication (Pharmacy To Dose) 1 each IVPB PRN PRN PRN Reason: Pharmacy to dose Morphine Sulfate (Morphine) 2 mg SLOW IVP Q1H PRN PRN Reason: Pain Last Admin: 11/01/17 21:01 Dose: 2 mg Ondansetron HCl (Zofran) 4 mg IVP Q6H PRN PRN Reason: Nausea/Vomiting Pantoprazole Sodium (Protonix) 40 mg PO DAILY [facility] Last Admin: 11/01/17 09:07 Dose: 40 mg Polyethylene Glycol (Miralax) 17 gm PO DAILY PRN PRN Reason: Constipation Sodium Chloride (Flush - Normal Saline) 10 ml IVF Q12HR [facility] Last Admin: 11/01/17 20:53 Dose: 10 ml Sodium Chloride (Flush - Normal Saline) 10 ml IVF PRN PRN PRN Reason: Saline Flush
[2017-11-02] MEDS: Albumin 25% 25 GM/100 ML BOT IVPB SCH ×2 (00:31→06:08)
[2017-11-02] MEDS: Ondansetron HCl/PF 4 MG/2 ML Vial IVP PRN ×2 (03:35→14:13)
[2017-11-02] MEDS: Hydrocortisone Sod Succ/PF 100 mg/2 ml Vial IVP SCH ×3 (03:35→20:28)
[2017-11-02 04:44] LABS: Band 6 % (5-11); Hemoglobin 7.3 g/dL (12.0-16.0); Lymphocytes 6 % (21-51); MDiff Complete? YES; Mean Corpuscular HGB CONC 31.8 g/dL (32.0-36.0); Mean Corpuscular Hemoglobin 29.5 pg (27.0-31.0); Mean Corpuscular Volume 92.7 fL (78.0-98.0); Mean Platelet Volume 6.9 fL (7.4-10.4); Monocytes 3 % (0-10); Neutrophil 85 % (42-75); Platelet Count 471 thou/uL (130-400); RBC Distribution Width 15.2 % (11.5-14.5); Red Blood Cell (RBC) Count 2.47 mill/uL (4.20-5.40); White Blood Cell (WBC) Count 13.4 thou/uL (4.8-10.8)
[2017-11-02 04:58] LABS: ALT (SGPT) 12 U/L (8-55); AST (SGOT) 9 U/L (5-34); Albumin 3.7 g/dL (3.5-5.0); Alkaline Phosphatase 56 U/L (40-150); Anion Gap 13 mmol/L (10-20); BUN (Urea Nitrogen) 15 mg/dL (9.8-20.1); Bilirubin, Total 0.5 mg/dL (0.2-1.2); Calc. Creatinine Clearance 64 mL/min (70-130); Calcium 8.3 mg/dL (7.8-10.44); Carbon Dioxide 20 mmol/L (22-29); Chloride 106 mmol/L (98-107); Estimated GFR-MDRD 55; Globulin 1.8 g/dL (2.4-3.5); Glucose 126 mg/dL (70-105); Magnesium 1.6 mg/dL (1.6-2.6); Phosphorus 3.4 mg/dL (2.3-4.7); Potassium 3.4 mmol/L (3.5-5.1); Protein, Total 5.5 g/dL (6.0-8.3); Sodium 136 mmol/L (136-145)
--- NOTE | 2017-11-02 09:11 | PDOC.PN ---
- Subjective Encounter Start Date: 11/02/17 Encounter Start Time: 16:00 Patient seen and examined for shock. Off pressors. No new complaints. No overnight events - Objective Resuscitation Status: Resuscitation Status FULL:Full Resuscitation MAR Reviewed: Yes Vital Signs & Weight: Vital Signs (12 hours) Temp 11/02/17 05:00 97.1 F L 11/02/17 00:00 98.9 F Weight Weight 148 lb 9.6 oz Most Recent Monitor Data Heart Rate from ECG 95 NIBP 93/58 NIBP BP-Mean 68 Respiration from ECG 14 SpO2 94 I&O: 11/01/17 11/02/17 11/03/17 06:59 06:59 06:59 Intake Total 3330 3871 Output Total 755 900 Balance 2575 2971 Result Diagrams: 11/02/17 03:43 11/02/17 03:43 EKG Reviewed by me: Yes (Tele SR) Phys Exam - Physical Examination Constitutional: NAD Respiratory: no wheezing, no rhonchi Cardiovascular: RRR, no rub Gastrointestinal: soft, non-tender, positive bowel sounds Neurological: moves all 4 limbs Dx/Plan - Plan DVT proph w/SCDs Review of Systems - Review of Systems Respiratory: negative: Cough, Dry, Shortness of Breath, Hemoptysis, SOB with Excertion, Pleuritic Pain, Sputum, Wheezing Cardiovascular: negative: chest pain, palpitations, orthopnea, paroxysmal nocturnal dyspnea, edema, light headedness, other Gastrointestinal: negative: Nausea, Vomiting, Abdominal Pain, Diarrhea, Constipation, Melena, Hematochezia, Other - Medications/Allergies Allergies/Adverse Reactions: Allergies Allergy/AdvReac Type Severity Reaction Status Date / Time No Known Drug Allergies Allergy Verified 10/31/17 17:19 Medications: Current Medications Acetaminophen (Tylenol Elixir) 650 mg PO Q6H PRN PRN Reason: Fever > 101 or Mild Pain Acetaminophen (Tylenol) 650 mg ME Q6H PRN PRN Reason: Fever > 101 or Mild Pain Acetaminophen (Tylenol) 650 mg PO Q4H PRN PRN Reason: Headache/Fever or Pain Acetaminophen/Codeine Phosphate (Tylenol #3) 1 tab PO Q6H PRN PRN Reason: Pain 4-6 Al Hydroxide/Mg Hydroxide (Maalox) 30 ml PO Q6H PRN PRN Reason: Heartburn or Indigestion Albumin Human (Albumin 25%) 25 gm IVPB Q6HR [facility] Stop: 11/02/17 18:01 Last Admin: 11/02/17 06:08 Dose: 25 gm Albuterol/Ipratropium (Duoneb) 3 ml NEB Q6H PRN PRN Reason: SOB &/or Wheezing Calcium Carbonate (Tums) 1,000 mg PO Q4H PRN PRN Reason: Heartburn or Indigestion Emollient Cream (Hydrocerin Cream) 0 gm TOP BIDPRN PRN PRN Reason: Dry Skin Famotidine (Pepcid) 20 mg PO Q24HR [facility] Last Admin: 11/01/17 20:52 Dose: 20 mg Hydrocortisone Sodium Succinate (Solu-Cortef) 100 mg IVP Q8H [facility] Last Admin: 11/02/17 03:35 Dose: 100 mg Norepinephrine Bitartrate (Levophed) 250 mls @ 0 mls/hr IVPB INF PRN; Protocol ; Titrate PRN Reason: TITRATE TO KEEP SBP >80 Last Admin: 11/01/17 05:36 Dose: 250 mls Cefepime HCl 2 gm/ Sodium (Chloride) 100 mls @ 200 mls/hr IVPB 0800,2000 [facility] Last Admin: 11/01/17 20:52 Dose: 100 mls Norepinephrine Bitartrate (Levophed) 250 mls @ 0 mls/hr IVPB PRN PRN; Protocol ; Titrate PRN Reason: To maintain MAP > 65 Vancomycin HCl 1.25 gm/ Sodium (Chloride) 250 mls @ 166.667 mls/hr IVPB 1500 [facility] Last Admin: 11/01/17 14:41 Dose: 250 mls Magnesium Sulfate 2 gm/ Device 100 mls @ 100 mls/hr IVPB NOW [facility] Stop: 11/02/17 11:15 Lactulose (Lactulose) 20 gm PO DAILYPRN PRN PRN Reason: Constipation Mineral Oil/White Petrolatum (Lacri-Lube Ointment) 0 gm EA EYE PRN PRN PRN Reason: Dry Eyes Miscellaneous Medication (Pharmacy To Dose) 1 each IVPB PRN PRN PRN Reason: Pharmacy to dose Morphine Sulfate (Morphine) 2 mg SLOW IVP Q1H PRN PRN Reason: Pain Last Admin: 11/02/17 03:35 Dose: 2 mg Ondansetron HCl (Zofran) 4 mg IVP Q6H PRN PRN Reason: Nausea/Vomiting Last Admin: 11/02/17 03:35 Dose: 4 mg Pantoprazole Sodium (Protonix) 40 mg PO DAILY [facility] Last Admin: 11/01/17 09:07 Dose: 40 mg Polyethylene Glycol (Miralax) 17 gm PO DAILY PRN PRN Reason: Constipation Potassium Chloride (K-Dur) 20 meq PO BID-WM [facility] Stop: 11/03/17 08:01 Potassium Chloride (K-Dur) 20 meq PO NOW [facility] Stop: 11/02/17 11:15 Sodium Chloride (Flush - Normal Saline) 10 ml IVF Q12HR [facility] Last Admin: 11/01/17 20:53 Dose: 10 ml Sodium Chloride (Flush - Normal Saline) 10 ml IVF PRN PRN PRN Reason: Saline Flush
[2017-11-02] MEDS ORDERED: Magnesium 2 GM/NS 0.9% 100 ML 2 GM in Premix Bag 1 BAG IVPB SCH (09:15)
[2017-11-02] MEDS ORDERED: Potassium Chloride 20 MEQ TAB PO SCH ×2 (09:15→13:00)
[2017-11-02] MEDS: Cefepime 2 GM in Sodium Chloride 0.9% 100 ML IVPB SCH ×2 (09:17→20:25)
[2017-11-02] MEDS ORDERED: Furosemide 40 MG/4 ML VIAL SLOW IVP SCH (11:30)
--- NOTE | 2017-11-02 11:42 | PRG ---
DATE OF SERVICE: 11/02/2017 SERVICE: PULMONARY MEDICINE INTERVAL HISTORY: The patient is doing much better from a cardiovascular standpoint. She has been w eaned off Levophed since yesterday. Her blood pressures have firmed up very nicely. I find her awak e and conversive. She is a little tachypneic with minimal respiratory distress. That being said, omer villatoro is talking for the most part in full sentences. She has no specific complaints of nausea or vomiti ng. There were no overnight events. She does have belly distention. She is asking whether or not s he is going to get tapped today. At this point, there is no impending respiratory failure associated with the peritoneal fluid. As such, from my perspective that needs to occur unless primary is incli carolyn to do so. PHYSICAL EXAMINATION: VITAL SIGNS: Afebrile. Pulse 95, blood pressure 93/58, respirations 14, saturation 94%. She is on 2 liters nasal cannula. GENERAL: The patient is awake and alert, in no apparent distress. LUNGS: Decent air entry. Crackles are present. There is decreased air entry at the bibasilar regio n. No prolonged expiratory phase HEART: Normal rate and regular. ABDOMEN: Distended with ascites. No rebound or guarding is present. There is minimal tenderness to palpation. Bowel sounds are active. GENITOURINARY: Lopes catheter in place. NEUROLOGIC: Grossly nonfocal. MUSCULOSKELETAL: No cyanosis or clubbing. There is diffuse 3+ edema. LABORATORY DATA: WBC 13.4, hemoglobin 7.3 and platelets 471,000. Creatinine 1.02. Basic metabolic profile is otherwise unremarkable. Liver function studies are unremarkable. Potassium 3.4. Urinaly sis is unremarkable. Vancomycin 3.1. Blood cultures x2 and urine culture remain negative. IMAGING DATA: Chest x-ray demonstrates pulmonary vascular congestion is evident. Bilateral pleural effusions are identified. Pulmonary nodules are present in the right lower lobe. ASSESSMENT: 1. Acute hypoxic respiratory failure. 2. Ascites secondary to peritoneal carcinomatosis. 3. Pleural effusions, bilateral. 4. Colon cancer, widely metastatic. 5. Severe sepsis, resolving. PLAN: We will continue our empiric antibiotics, but I will get rid of the vancomycin and the levels associated with that. Her blood pressures have actually firmed up fairly nicely. As such, we will i ntroduce a small dose of Lasix. A paracentesis can be considered if the patient has increasing respi ratory discomfort. For the time being, we will try to pull it off with Lasix. She can be transition ed to the medical unit. She will continue her discussions with palliative care as ultimately, she engel s an end-stage condition that does not have a meaningful care.
[2017-11-02] MEDS: Furosemide 40 MG/4 ML VIAL SLOW IVP SCH (13:49)
[2017-11-02] MEDS: Potassium Chloride 20 MEQ TAB PO SCH (18:01)
[2017-11-02] MEDS: Famotidine 20 MG TAB PO SCH (20:27)
[2017-11-02] MEDS: Lorazepam 1 MG TAB PO PRN (20:27)
--- NOTE | 2017-11-02 23:50 | PDOC.PN ---
- Subjective Encounter Start Date: 11/02/17 Encounter Start Time: 16:00 Patient seen and examined for Sepsis. Off pressors. Abd distended - requesting paracentesis. Feels slightly better. No new complaints. No overnight events - Objective Resuscitation Status: Resuscitation Status FULL:Full Resuscitation MAR Reviewed: Yes Vital Signs & Weight: Vital Signs (12 hours) Temp Pulse Resp Pulse Ox 11/02/17 20:00 98.0 F 99 18 97 11/02/17 16:00 97.8 F 11/02/17 12:00 98.0 F Weight Weight 148 lb 9.6 oz Most Recent Monitor Data Heart Rate from ECG 94 NIBP 112/67 NIBP BP-Mean 88 Respiration from ECG 21 SpO2 95 I&O: 11/01/17 11/02/17 11/03/17 06:59 06:59 06:59 Intake Total 3330 3871 1248 Output Total 738 763 0088 Balance 2575 2971 -272 Result Diagrams: 11/03/17 04:43 11/03/17 04:43 Radiology Reviewed by me: Yes (CXR - improving) EKG Reviewed by me: Yes (Tele ST) Phys Exam - Physical Examination Pt in mild resp distress Respiratory: no wheezing B/L rhonchi, Dec AE at bases, Symmetrical, Mild accessory muscle use Cardiovascular: RRR, no rub tachycardic, No heaves/pulsations Gastrointestinal: soft, positive bowel sounds mild gen tend, No rebound/guarding Musculoskeletal: edema present Neurological: non-focal, normal sensation, moves all 4 limbs Psychiatric: normal affect, A&O x 3 Dx/Plan - Plan plan discussed w/ family, DVT proph w/SCDs IMPRESSION: 1. Severe sepsis with acute organ dysfunction/septic shock - Cultures negative 2. 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 3. Ascites s/p paracentesis (last admission) 4. Severe protein-calorie malnutrition. 5. Acute kidney injury, on chronic kidney disease stage 2. improving 6. Hyponatremia/Hypokalemia/Hypomagnesemia 7. Acute on chronic anemia. Eliquis on hold due to Anemia 8. History of hypertension. 9. Pulmonary nodules. 10. Gastroesophageal reflux disease. 11. ?Brain mets. 12. Anxiety and depression. 13. Recent Mediport placement PLAN: Cont Cefepime Hydrocortisone dose reduced Vancomycin dced Off pressors Resume Eliquis in AM if ok with Critical care Replaced electrolytes Transfuse if Hb <7 Crtical care following Cont other meds as below Review of Systems - Review of Systems Cardiovascular: negative: chest pain, palpitations, orthopnea, paroxysmal nocturnal dyspnea, edema, light headedness, other Gastrointestinal: Abdominal Pain (due to distention). negative: Nausea, Vomiting, Diarrhea, Constipation, Melena, Hematochezia, Other - Medications/Allergies Allergies/Adverse Reactions: Allergies Allergy/AdvReac Type Severity Reaction Status Date / Time No Known Drug Allergies Allergy Verified 10/31/17 17:19 Medications: Current Medications Acetaminophen (Tylenol Elixir) 650 mg PO Q6H PRN PRN Reason: Fever > 101 or Mild Pain Acetaminophen (Tylenol) 650 mg [place] Q6H PRN PRN Reason: Fever > 101 or Mild Pain Acetaminophen (Tylenol) 650 mg PO Q4H PRN PRN Reason: Headache/Fever or Pain Acetaminophen/Codeine Phosphate (Tylenol #3) 1 tab PO Q6H PRN PRN Reason: Pain 4-6 Al Hydroxide/Mg Hydroxide (Maalox) 30 ml PO Q6H PRN PRN Reason: Heartburn or Indigestion Albuterol/Ipratropium (Duoneb) 3 ml NEB Q6H PRN PRN Reason: SOB &/or Wheezing Calcium Carbonate (Tums) 1,000 mg PO Q4H PRN PRN Reason: Heartburn or Indigestion Emollient Cream (Hydrocerin Cream) 0 gm TOP BIDPRN PRN PRN Reason: Dry Skin Famotidine (Pepcid) 20 mg PO Q24HR [facility] Last Admin: 11/02/17 20:27 Dose: 20 mg Furosemide (Lasix) 40 mg SLOW IVP 0600,1400 [facility] Last Admin: 11/02/17 13:49 Dose: Not Given Hydrocortisone Sodium Succinate (Solu-Cortef) 50 mg IVP BID [facility] Last Admin: 11/02/17 20:28 Dose: 50 mg Cefepime HCl 2 gm/ Sodium (Chloride) 100 mls @ 200 mls/hr IVPB 0800,2000 [facility] Last Admin: 11/02/17 20:25 Dose: 100 mls Lactulose (Lactulose) 20 gm PO DAILYPRN PRN PRN Reason: Constipation Lorazepam (Ativan) 2 mg PO TIDPRN PRN PRN Reason: Anxiety Last Admin: 11/02/17 20:27 Dose: 2 mg Mineral Oil/White Petrolatum (Lacri-Lube Ointment) 0 gm EA EYE PRN PRN PRN Reason: Dry Eyes Morphine Sulfate (Morphine) 2 mg SLOW IVP Q2H PRN PRN Reason: Pain Last Admin: 11/02/17 22:46 Dose: 2 mg Ondansetron HCl (Zofran) 4 mg IVP Q6H PRN PRN Reason: Nausea/Vomiting Last Admin: 11/02/17 14:13 Dose: 4 mg Pantoprazole Sodium (Protonix) 40 mg PO DAILY [facility] Last Admin: 11/02/17 09:18 Dose: 40 mg Polyethylene Glycol (Miralax) 17 gm PO DAILY PRN PRN Reason: Constipation Potassium Chloride (K-Dur) 20 meq PO BID-[facility] Stop: 11/03/17 08:01 Last Admin: 11/02/17 18:01 Dose: 20 meq Sodium Chloride (Flush - Normal Saline) 10 ml IVF Q12HR [facility] Last Admin: 11/02/17 20:28 Dose: 10 ml Sodium Chloride (Flush - Normal Saline) 10 ml IVF PRN PRN PRN Reason: Saline Flush
[2017-11-03 05:12] LABS: Anion Gap 12 mmol/L (10-20); BUN (Urea Nitrogen) 15 mg/dL (9.8-20.1); Calc. Creatinine Clearance 53 mL/min (70-130); Calcium 8.7 mg/dL (7.8-10.44); Carbon Dioxide 22 mmol/L (22-29); Chloride 107 mmol/L (98-107); Estimated GFR-MDRD 46; Glucose 119 mg/dL (70-105); Potassium 4.5 mmol/L (3.5-5.1); Sodium 136 mmol/L (136-145)
[2017-11-03 05:27] LABS: Hemoglobin 7.9 g/dL (12.0-16.0); Platelet Count 506 thou/uL (130-400)
[2017-11-03] MEDS: Furosemide 40 MG/4 ML VIAL SLOW IVP SCH ×2 (09:29→13:31)
[2017-11-03] MEDS: Hydrocortisone Sod Succ/PF 100 mg/2 ml Vial IVP SCH ×2 (09:30→21:13)
[2017-11-03] MEDS: Cefepime 2 GM in Sodium Chloride 0.9% 100 ML IVPB SCH ×2 (09:30→19:57)
[2017-11-03] MEDS: Potassium Chloride 20 MEQ TAB PO SCH (10:30)
[2017-11-03] MEDS: Lorazepam 1 MG TAB PO PRN ×2 (10:30→13:29)
--- NOTE | 2017-11-03 10:50 | PRG ---
DATE OF SERVICE: 11/03/2017 SERVICE: Pulmonary Medicine. INTERVAL HISTORY: The patient is doing okay from a respiratory standpoint. She is breathing comfort ably. Her blood pressures firmed up a little bit. She is tolerating the Lasix. She has no specific complaints. She is very tearful this morning and is in a fairly grumpy mood. She is a little bit d isoriented. She does not really get the situation. She currently does not know where she is. PHYSICAL EXAMINATION: VITAL SIGNS: Afebrile, pulse 107, blood pressure 126/91, respirations 21, saturation 90% on room air . GENERAL: Patient is awake and alert, in no apparent distress. LUNGS: Decent air entry. Crackles are present dependently. HEART: Normal rate, regular. ABDOMEN: Distended with ascites. No rebound or guarding is present. Bowel sounds are present. MUSCULOSKELETAL: No cyanosis or clubbing. There is diffuse 3-4+ pitting throughout. GENITOURINARY: Lopes catheter in place. NEUROLOGIC: Grossly nonfocal. LABORATORY DATA: WBC 13.4, hemoglobin 7.9, platelets 500,000. Basic metabolic profile is essentiall y unremarkable. Creatinine 1.2. Magnesium 2.0. Blood cultures x2 and urine culture are unremarkabl e. ASSESSMENT: 1. Acute hypoxic respiratory failure, resolving. 2. Ascites secondary to peritoneal carcinomatosis. 3. Pleural effusions, bilateral. 4. Colon cancer, widely metastatic. 5. Severe sepsis. PLAN: We will continue our empiric antibiotics. We will continue to diurese the patient until she r eturns to euvolemia. At this point, the patient is stable for transition out of the ICU to the medic al unit. She will continue our discussions with palliative care. Pulmonary will continue to follow along so long as she remains in the hospital.
[2017-11-03] MEDS ORDERED: ALPRAZolam 0.25 MG TAB PO PRN (15:43)
[2017-11-03] MEDS ORDERED: Lorazepam 2 MG/ML VIAL SLOW IVP PRN (16:30)
--- NOTE | 2017-11-03 17:26 | PDOC.PN ---
- Subjective Encounter Start Date: 11/03/17 Encounter Start Time: 11:00 Patient seen and examined for Sepsis. Abd discomfort due to distention +. No N/ V. No overnight events - Objective Resuscitation Status: Resuscitation Status FULL:Full Resuscitation MAR Reviewed: Yes Vital Signs & Weight: Vital Signs (12 hours) Temp Pulse Resp Pulse Ox 11/03/17 08:00 98.0 F 85 15 91 L Weight Weight 162 lb 11.218 oz Most Recent Monitor Data Heart Rate from ECG 103 NIBP 145/72 NIBP BP-Mean 106 Respiration from ECG 17 SpO2 86 I&O: 11/02/17 11/03/17 11/04/17 06:59 06:59 06:59 Intake Total 3871 1462 148 Output Total 900 8255 670 Balance 2905 -504 -851 Result Diagrams: 11/03/17 04:43 11/03/17 04:43 Additional Labs: Microbiology 10/31/17 12:43 Urine townsend catheter Urine Culture - Final NO GROWTH AT 48 HOURS 10/31/17 11:59 Venous blood - Left Hand Blood Culture - Preliminary NO GROWTH AT 48 HOURS 10/31/17 11:40 Venous blood - Left Arm Blood Culture - Preliminary NO GROWTH AT 48 HOURS EKG Reviewed by me: Yes (Tele SR) Phys Exam - Physical Examination Constitutional: NAD Respiratory: no wheezing, no rhonchi Cardiovascular: RRR, no rub Gastrointestinal: soft, non-tender, positive bowel sounds Musculoskeletal: no edema Neurological: moves all 4 limbs Dx/Plan - Plan DVT proph w/SCDs IMPRESSION: 1. Severe sepsis with acute organ dysfunction/septic shock - Cultures negative , Off pressors 2. 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 3. Ascites s/p paracentesis (last admission) 4. Severe protein-calorie malnutrition. 5. Acute kidney injury, on chronic kidney disease stage 2. 6. Hyponatremia/Hypokalemia/Hypomagnesemia 7. Acute on chronic anemia. 8. History of hypertension. 9. Pulmonary nodules. 10. Gastroesophageal reflux disease. 11. ?Brain mets. 12. Anxiety and depression. 13. Recent Mediport placement PLAN: Transfer to Oncology Diureisis due to volume overload AM labs Cont Cefepime Cont Hydrocortisone at current dose Paracentesis in AM Resume Eliquis after Paracentesis Cont other meds as below Review of Systems - Review of Systems Respiratory: negative: Cough, Dry, Shortness of Breath, Hemoptysis, SOB with Excertion, Pleuritic Pain, Sputum, Wheezing Cardiovascular: negative: chest pain, palpitations, orthopnea, paroxysmal nocturnal dyspnea, edema, light headedness, other - Medications/Allergies Allergies/Adverse Reactions: Allergies Allergy/AdvReac Type Severity Reaction Status Date / Time No Known Drug Allergies Allergy Verified 10/31/17 17:19 Medications: Current Medications Acetaminophen (Tylenol Elixir) 650 mg PO Q6H PRN PRN Reason: Fever > 101 or Mild Pain Acetaminophen (Tylenol) 650 mg [place] Q6H PRN PRN Reason: Fever > 101 or Mild Pain Acetaminophen (Tylenol) 650 mg PO Q4H PRN PRN Reason: Headache/Fever or Pain Acetaminophen/Codeine Phosphate (Tylenol #3) 1 tab PO Q6H PRN PRN Reason: Pain 4-6 Al Hydroxide/Mg Hydroxide (Maalox) 30 ml PO Q6H PRN PRN Reason: Heartburn or Indigestion Albuterol/Ipratropium (Duoneb) 3 ml NEB Q6H PRN PRN Reason: SOB &/or Wheezing Calcium Carbonate (Tums) 1,000 mg PO Q4H PRN PRN Reason: Heartburn or Indigestion Emollient Cream (Hydrocerin Cream) 0 gm TOP BIDPRN PRN PRN Reason: Dry Skin Famotidine (Pepcid) 20 mg PO Q24HR [facility] Last Admin: 11/02/17 20:27 Dose: 20 mg Furosemide (Lasix) 40 mg SLOW IVP 0600,1400 [facility] Last Admin: 11/03/17 13:31 Dose: 40 mg Hydrocortisone Sodium Succinate (Solu-Cortef) 50 mg IVP BID [facility] Last Admin: 11/03/17 09:30 Dose: 50 mg Cefepime HCl 2 gm/ Sodium (Chloride) 100 mls @ 200 mls/hr IVPB 0800,2000 [facility] Last Admin: 11/03/17 09:30 Dose: 100 mls Lactulose (Lactulose) 20 gm PO DAILYPRN PRN PRN Reason: Constipation Lorazepam (Ativan) 2 mg PO TIDPRN PRN PRN Reason: Anxiety Last Admin: 11/03/17 13:29 Dose: 2 mg Lorazepam (Ativan) 0.5 mg SLOW IVP Q6H PRN PRN Reason: Anxiety/Agitation Stop: 11/03/17 19:00 Last Admin: 11/03/17 16:47 Dose: 0.5 mg Morphine Sulfate (Morphine) 2 mg SLOW IVP Q2H PRN PRN Reason: Pain Last Admin: 11/03/17 04:36 Dose: 2 mg Ondansetron HCl (Zofran) 4 mg IVP Q6H PRN PRN Reason: Nausea/Vomiting Last Admin: 11/02/17 14:13 Dose: 4 mg Pantoprazole Sodium (Protonix) 40 mg PO DAILY [facility] Last Admin: 11/03/17 10:30 Dose: 40 mg Polyethylene Glycol (Miralax) 17 gm PO DAILY PRN PRN Reason: Constipation Sodium Chloride (Flush - Normal Saline) 10 ml IVF Q12HR [facility] Last Admin: 11/03/17 09:32 Dose: 10 ml Sodium Chloride (Flush - Normal Saline) 10 ml IVF PRN PRN PRN Reason: Saline Flush
[2017-11-03] MEDS ORDERED: Eucerin (Mineral Oil/Petrolatum,White) 30 gm Jar TOP PRN (17:28)
--- NOTE | 2017-11-03 18:23 | PDOC.EVN ---
Event Note - Event Note Event Note: Advance care planning note - I d/w with patient and her family today and as well as yesterday about patients clinical condition. Patient has advanced Metastatic Adenocarcinoma. She is requesting to stay full code. Palliative care has been consulted. Time spent 20 min.
[2017-11-03] MEDS ORDERED: Apixaban 5 MG TAB PO SCH (21:00)
[2017-11-03] MEDS: Famotidine 20 MG TAB PO SCH (21:13)
[2017-11-03] MEDS: Senokot S 8.6-50 MG TAB PO SCH (21:14)
[2017-11-03] MEDS: Lorazepam 2 MG/ML VIAL SLOW IVP PRN (23:51)
[2017-11-04 05:07] LABS: Anion Gap 11 mmol/L (10-20); BUN (Urea Nitrogen) 17 mg/dL (9.8-20.1); Calc. Creatinine Clearance 55 mL/min (70-130); Calcium 8.8 mg/dL (7.8-10.44); Carbon Dioxide 24 mmol/L (22-29); Chloride 107 mmol/L (98-107); Estimated GFR-MDRD 43; Glucose 121 mg/dL (70-105); Magnesium 1.8 mg/dL (1.6-2.6); Potassium 3.9 mmol/L (3.5-5.1); Sodium 138 mmol/L (136-145)
[2017-11-04 05:37] LABS: Band 13 % (5-11); Hemoglobin 8.4 g/dL (12.0-16.0); Lymphocytes 4 % (21-51); MDiff Complete? YES; Mean Corpuscular HGB CONC 31.8 g/dL (32.0-36.0); Mean Corpuscular Volume 94.4 fL (78.0-98.0); Mean Platelet Volume 6.8 fL (7.4-10.4); Monocytes 8 % (0-10); Myelocyte 1 % (0-0); Neutrophil 74 % (42-75); PLT Morphology Comment Appears Increased; Platelet Count 485 thou/uL (130-400); RBC Distribution Width 15.3 % (11.5-14.5); White Blood Cell (WBC) Count 12.5 thou/uL (4.8-10.8)
[2017-11-04] MEDS: Lorazepam 2 MG/ML VIAL SLOW IVP PRN (05:48)
[2017-11-04] MEDS: Furosemide 40 MG/4 ML VIAL SLOW IVP SCH ×2 (06:41→14:33)
[2017-11-04] MEDS: Senokot S 8.6-50 MG TAB PO SCH (08:38)
[2017-11-04] MEDS: Cefepime 2 GM in Sodium Chloride 0.9% 100 ML IVPB SCH (08:49)
[2017-11-04] MEDS ORDERED: Saccharomyces boulardii 250 MG CAP PO SCH (09:00)
[2017-11-04] MEDS ORDERED: Polyethylene Glycol 3350 17 GM Packet PO SCH (09:00)
[2017-11-04] MEDS ORDERED: Multivit, Therapeutic 1 TAB PO SCH (09:00)
[2017-11-04] MEDS: Hydrocortisone Sod Succ/PF 100 mg/2 ml Vial IVP SCH (09:01)
[2017-11-04 09:44] LABS: INR-International Normal Ratio 1.5; PTT 35.9 SEC (22.9-36.1); Prothrombin Time 17.8 SEC (12.0-14.7)
[2017-11-04 11:27] LABS: Actual Bicarbonate (HCO3a) 21.4 mEq/L (22-28); Base Excess (BEa) -5.4 mEq/L (-2.0 to +3.0); CO2 Tension 48.3 mmHg (35.0-45.0); Hemoglobin (Hb) 9.3 g/dL (12.0-16.0); O2 Tension (PaO2) 79.5 mmHg (> 80.0); pH, Arterial 7.27 (7.35-7.45)
[2017-11-04 11:28] LABS: Analyzer IN Cardio OR; Calcium, Ionized 1.3 mmol/L (1.12-1.30); Puncture Site RR
[2017-11-04 12:31] VITALS: BP 91/57; TEMP 97.3
[2017-11-04] MEDS ORDERED: Lorazepam 2 MG/ML VIAL SLOW IVP PRN ×2 (12:47→15:07)
--- NOTE | 2017-11-04 13:13 | RAD ---
AP VIEW CHEST: Date: 11/04/17 INDICATION: History of shortness of breath. COMPARISON: Prior exam dated 11/01/17. FINDINGS: Since the comparison examination, there is worsening perihilar opacities and pulmonary vascular conge stion. There are worsening bilateral pleural effusions. There is worsening cardiomegaly. No pneumotho rax is evident. Left chest wall port is unchanged. IMPRESSION: Findings of volume overload and CHF. POS: ROYER
[2017-11-04] MEDS ORDERED: Scopolamine 1.5 mg/72 hour Patch TD SCH (15:30)
--- NOTE | 2017-11-04 18:03 | PRG ---
DATE OF SERVICE: 11/04/2017 SUBJECTIVE: Ms. Paul has deteriorated over the weekend. She is poorly responsive today. Blood gas showed a pH of 7.37, pCO2 of 48, pO2 of 79. PHYSICAL EXAMINATION: GENERAL: She is somnolent. LUNGS: Remarkable for mild rhonchi. HEART: Regular rhythm. ABDOMEN: Unchanged. EXTREMITIES: Without asymmetry or edema. Chest radiograph shows pulmonary edema. LABORATORY DATA: Sodium 138, potassium 3.9, chloride 107, bicarbonate 24, BUN 17, creatinine 1.27. White count 12.5, hemoglobin 8.4, platelets 485. IMPRESSION: 1. Advanced peritoneal carcinomatosis. 2. Cachexia with extreme deconditioning. I believe she has reached the end of her life. She will never be a candidate for chemotherapy per my discussion with the oncologist. Given her decline over the weekend, I think it is appropriate to pr oceed forward with comfort care. I met three different groups of family members this morning on 3 se parate occasions and discussed the above with all of them. I feel it is appropriate to proceed with comfort care and they are comfortable with this option. She has been made a DO NOT RESUSCITATE patie nt. I will be happy to continue to help in any way I can, but from a medical standpoint, comfort is the best option. There is no indication for BiPAP in this setting. There is no indication for a par acentesis again, as this will just likely lead to hypotension. I answered all of the family's questi ons to their satisfaction.
--- NOTE | 2017-11-04 18:33 | PRG ---
DATE OF SERVICE: 11/04/2017 SUBJECTIVE: Ms. Paul improved dramatically overnight. She is much more alert when I rounded on he r in the morning. Vital signs have improved. We are in the process of weaning pressors off. OBJECTIVE: LUNGS: Clear anteriorly. HEART: Regular rhythm. ABDOMEN: Unchanged. EXTREMITIES: Without asymmetry. LABORATORY DATA: White count 12.9, hemoglobin 8.3, platelets 486. Sodium 133, potassium 3.6, chloride 103, bicarbonate 20, BUN 20, and creatinine 1.29. IMPRESSION: 1. Advanced peritoneal carcinomatosis for metastatic colon cancer. 2. Intravascular volume depletion. 3. Anorexia. PLAN: Continue with volume resuscitation. Hopefully, she will reach a point where she can tolerate chemotherapy.
--- NOTE | 2017-11-05 17:13 | DS ---
DATE : 11/04/2017 BRIEF HOSPITAL COURSE: The patient was a 62-year-old white female with recently diagnosed metastatic adenocarcinoma presented to the emergency room with generalized weakness. She was discharged from [facility] facility 2 weeks prior to this admission. She also was diagnosed with bilateral pulmonary emboli sm and was started on Eliquis. In the emergency room, she was found to have hypotension requiring Levophed. She was monitored in [facility] Intensive Care Unit. She was placed on broad-spectrum antibiotics. Cultures, however, remained ne gative. Later on, she was weaned off the pressors. She was transferred to the oncology floor. Her condition progressively declined. She also went into fluid overload requiring IV diuretics. Due to progressive decline in her condition, she was made DNR. The DPOA and 2 daughters agreed with the latisha n. She on 11/04/2017 at 1716. The family was notified. The body was released to the home. FINAL DIAGNOSES: 1. Severe sepsis with acute organ dysfunction/septic shock requiring pressors. 2. Metastatic mucinous adenocarcinoma with peritoneal carcinomatosis. 3. Ascites requiring paracentesis, last admission. 4. Severe protein calorie malnutrition. 5. Acute kidney injury on chronic kidney disease stage 2. 6. Electrolyte abnormality including hyponatremia, hypokalemia, and hypomagnesemia. 7. Anemia. 8. Hypertension. 9. Pulmonary nodules. 10. GERD. 11. Suspected brain mets. 12. Anxiety, depression.
== END 2017-11-04 17:16 | disposition expired | DRG 871 ==
LOC: SCSER 10:59 → CCU 14:18 → ONC 11-03 12:57
PROVIDERS: ADMIT Internal Medicine; ATTEND Internal Medicine
PROC: 06HY33Z Insertion of Infusion Device into Lower Vein, Percutaneous Approach (ICD-10-PCS; principal; 2017-10-31)
DX: A41.9 Sepsis, unspecified organism (principal); R65.21 Severe sepsis with septic shock; E43 Unspecified severe protein-calorie malnutrition; J96.01 Acute respiratory failure with hypoxia; C78.6 Secondary malignant neoplasm of retroperitoneum and peritoneum; R64 Cachexia; R18.8 Other ascites; N17.9 Acute kidney failure, unspecified; E87.1 Hypo-osmolality and hyponatremia; J90 Pleural effusion, not elsewhere classified; C78.00 Secondary malignant neoplasm of unspecified lung; C79.31 Secondary malignant neoplasm of brain; Z68.30 Body mass index [BMI] 30.0-30.9, adult; Z51.5 Encounter for palliative care; Z66 Do not resuscitate; R63.0 Anorexia; I12.9 Hypertensive chronic kidney disease with stage 1 through stage 4 chronic kidney disease, or unspecified chronic kidney disease; N18.2 Chronic kidney disease, stage 2 (mild); E87.6 Hypokalemia; E83.42 Hypomagnesemia; R91.1 Solitary pulmonary nodule; K21.9 Gastro-esophageal reflux disease without esophagitis; D64.9 Anemia, unspecified; F41.9 Anxiety disorder, unspecified; F32.9 Major depressive disorder, single episode, unspecified; Z85.038 Personal history of other malignant neoplasm of large intestine; Z86.711 Personal history of pulmonary embolism; Z87.891 Personal history of nicotine dependence
CPT/HCPCS: 36556; 51702; 70450; 71045; 72125; 80048; 80053; 80202; 81003; 82140; 82533; 82553; 82805; 83605; 83735; 84100; 84484; 85007; 85014; 85018; 85025; 85027; 85049; 85610; 85730; 86850; 86900; 86901; 87040; 87086; 93005; 94640; 96361; 96365; 96366; 96368; 96375; 99292; A4216; J0692; J1720; J1940; J1956; J2060; J2270; J2405; J2543; J3370; J3475; J7050; J7620; P9047